=== PATIENT | female | born 1985 | race Caucasian/White ===

== ENCOUNTER 2018-08-12 13:37 | Emergency (ER) | payer MEDICAID, OTHER ==
[~2018-08-12] VITALS: Ht 162.6 cm; Wt 94.3 kg
--- OUTSIDE RECORDS SUMMARY | 2018-08-12 13:44 | XMS REPORT ---
Author Yumi Ardon Organization [employer] Address Unknown Phone Unavailable Care Team Providers Care Corrections Officer Name Role Phone Yumi Davis CP Unavailable Allergies No Known Allergies Problems Problem Type Condition Code Onset Dates Condition Status Problem Amenorrhea N91.2 Active Medications No Known Medications Results No Known Results Summary Purpose eClinicalWorks Submission
--- OUTSIDE RECORDS SUMMARY | 2018-08-12 13:44 | XMS REPORT ---
Author Author ISELA ANAND Organization Unknown Address [address] [place] [address] Care Team Providers Care Collection Analyst Name Role Phone JAMES BAR Unavailable ISELA ANAND Unavailable Problems Problem SNOMED Onset Date Resolved Date Status Mental health problem 255583902 Active Review of medication 539591249 Active Allergies, Adverse Reactions NA Care Plan Goal Instructions Client will be functioning more independently with supports and have a life worth living. Engage with treatment team to build rapport. Learn and practice coping skills to reduce symptoms and improve functioning. The following Services will be utilized 1 - 3 times until goal is reached: Improve and maintain functioning through medical psychiatric services. Initial Psychiatric Evaluation, Ongoing medication monitoring and management , Case Conference with multidisciplinary members of the [facility] team as indicated, and/or Collaboration and coordination with outside medical providers as indicated by providing the following services: 01630 interactive complexity 52051 psychiatric diagnostic eval w/ meds 80971 30 min psychotherapy add-on 22139 45 [place] [address] 60 min psychotherapy add-on 80112 med injection 09939 New Patient E&M (level 1) 56506 New Patient E&M (level 2) 89525 New Patient E&M (level 3) 33057 New patient E&M (level 4) 33163 New Patient E&M (level 5) 94670 Established Patient E&M (level 1) 33856 Established Patient E&M (level 2) 10416 Established Patient E&M (level 3) 58437 Established Patient E&M (level 4) 13231 Established Patient E&M (level 5 ) 9935x prolonged service code 89697 case conference w/o clt & fam w/ 22960 case conference w/o clt w/ H0038 Peer Support Teresa Date Time Service Provider Location 10:00:00 am PSYCHOTHERAPY, 38-52 MINUTES ISELA ANAND [address] Medications NA Lab Results NA Encounters Date Time Service Code Provider 12:25:00 pm ISELA ANAND 03:34:00 pm ISELA ANAND Family History Functional Status NA Immunizations NA Vital Signs NA Social History NA Hospital Discharge Instructions NA Instructions * Not Applicable Procedures Date Procedure Code Type Code Provider Volatile drug screen (procedure) SNOMED CT 185921672 Purpose Electronic Copy
--- OUTSIDE RECORDS SUMMARY | 2018-08-12 13:44 | XMS REPORT ---
Author Author ISELA ANAND Organization Unknown Address [address] [place] [address] Care Team Providers Care Farmer General Name Role Phone JAMES BAR Unavailable ISELA ANAND Unavailable Problems Problem SNOMED Onset Date Resolved Date Status Mental health problem 677059569 Active Review of medication 154109660 Active Allergies, Adverse Reactions NA Care Plan [...] as indicated by providing the following services: 06538 interactive complexity 23447 psychiatric diagnostic eval w/ meds 06843 30 min psychotherapy add-on 59255 45 [place] [address] 60 min psychotherapy add-on 64217 med injection 39356 New Patient E&M (level 1) 98093 New Patient E&M (level 2) 87226 New Patient E&M (level 3) 14750 New patient E&M (level 4) 87325 New Patient E&M (level 5) 85035 Established Patient E&M (level 1) 93257 Established Patient E&M (level 2) 63999 Established Patient E&M (level 3) 19781 Established Patient E&M (level 4) 92326 Established Patient E&M (level 5 ) 9935x prolonged service code 01543 case conference w/o clt & fam w/ 65615 case conference w/o clt w/ H0038 Peer Support Teresa Client will be functioning more independently with supports and have a life worth living. Engage with treatment team to build rapport. Learn and practice coping skills to reduce symptoms and improve functioning. The following Services will be utilized 1 - 3 times until goal is reached: Client will be functioning more independently with supports and have a life worth living. Engage with treatment team to build rapport. Learn and practice coping skills to reduce symptoms and improve functioning. The following Services will be utilized 1 - 3 times until goal is reached: Medications Medication Code Dose,Form,Route,Freq Start Date End Date CeleXA - 20 MG ORAL Tablet 975307 Take one (1) Tablet Daily traZODone hydrochloride - 50 MG ORAL Tablet 246009 Take one (1) Tablet At Bedtime Lab Results NA Encounters Date Time Service Code Provider 12:25:00 pm ISELA ANAND 03:34:00 pm ISELA ANAND Family History Functional Status NA Immunizations NA Vital Signs Date Time BP Pulse Temp Height Weight BMI 01:19:00 pm over 90 bpm 65 in 240 lbs 39.9 kg/m^2 Social History Date Smoking Status SNOMED Code Current Every Day Smoker [id number] Hospital Discharge Instructions NA Instructions * Not Applicable Procedures Date Procedure Code Type Code Provider Volatile drug screen (procedure) SNOMED CT 062543808 Purpose Electronic Copy
--- NOTE | 2018-08-12 13:45 | NUR ---
called pt to room. pt not in waiting room.
--- OUTSIDE RECORDS SUMMARY | 2018-08-12 13:45 | XMS REPORT ---
Author Yumi Ardon Organization [employer] Address Unknown Phone Unavailable Care Team Providers Care Agile Java Developer Name Role Phone Yumi Davis CP Unavailable Allergies, Adverse Reactions, Alerts Substance Reaction Event Type Sulfa Info Not Available Drug Allergy Vancomycin HCl Info Not Available Drug Allergy Levaquin Info Not Available Drug Allergy Cipro Info Not Available Drug Allergy Plastic tape Info Not Available Non Drug Allergy Problems Problem Type Condition Code Onset Dates Condition Status Assessment Thyroid nodule E04.1 Active Assessment Unintentional weight loss R63.4 Active Assessment Alopecia L65.9 Active Assessment Hx gestational diabetes Z86.32 Active Assessment Amenorrhea N91.2 Active Assessment Thyromegaly E04.9 Active Assessment Obesity (BMI 35.0-39.9 without comorbidity) E66.9 Active Assessment Miscarriage within last 12 months Z87.59 Active Medications No Known Medications Procedures Procedure Coding System Code Date ASSAY OF THYROID (T3 OR T4) THYROID HORMONE (T3 OR T4) UPTAKE OR THYROID HORMONE BINDING RATIO (THBR) CPT-4 27309 Feb 05, 2016 GLYCOSYLATED HEMOGLOBIN TEST HEMOGLOBIN; GLYCOSYLATED (A1C) CPT-4 55974 Feb 05, 2016 Charge billed by Lab CPT-4 NOBIL Feb 05, 2016 OFFICEOUTPATIENT VISIT NEW OFFICE OR OTHER OUTPATIENT VISIT FOR THE EVALUATION AND MANAGEMENT OF A NEW PATIENT, WHICH REQUIRES THESE 3 ROTHMAN COMPONENTS. A DETAILED HISTORY A DETAILED EXAMINATION,MEDICAL DECISION MAKING OF LOW COMPLEXITY. CPT-4 42101 Feb 05, 2016 THYROID IMAGING WITH UPTAKE CPT-4 21319 Feb 05, 2016 Vital Signs Date/Time: Feb 05, 2016 Blood Pressure Diastolic 80 mm Hg Blood Pressure Systolic 112 mm Hg Cardiac Monitoring Heart Rate 84 /min Respiratory Rate 16 /min BMI 36.80 Index Weight 235 lbs Height 67 in Oximetry 99 % Results No Known Results Summary Purpose eClinicalWorks Submission
--- OUTSIDE RECORDS SUMMARY | 2018-08-12 13:45 | XMS REPORT ---
Author Yumi Ardon Organization [employer] Address Unknown Phone Unavailable Care Team Providers Care Domestic Travel Consultant Name Role Phone Yumi Davis CP Unavailable Allergies No Known Allergies Problems Problem Type Condition Code Onset Dates Condition Status Problem Amenorrhea N91.2 Active Medications No Known Medications Results No Known Results Summary Purpose eClinicalWorks Submission
--- OUTSIDE RECORDS SUMMARY | 2018-08-12 13:45 | XMS REPORT ---
Author Yumi Ardon Organization [employer] Address Unknown Phone Unavailable Care Team Providers Care Poultry Pathologist Name Role Phone Yumi Davis CP Unavailable Allergies No Known Allergies Problems No Known Problems Medications No Known Medications Results No Known Results Summary Purpose [employer]ClinicalWorks Submission
--- OUTSIDE RECORDS SUMMARY | 2018-08-12 13:45 | XMS REPORT ---
Author Yumi Ardon Organization [employer] Address Unknown Phone Unavailable Care Team Providers Care Water Pump Servicer Name Role Phone Yumi Davis CP Unavailable Allergies No Known Allergies Problems Problem Type Condition Code Onset Dates Condition Status Assessment Prediabetes R73.09 Active Medications Medication Code System Code Instructions Start Date End Date Status Dosage Metformin HCl [facility] [address]-52 500 MG Orally once a day x 1 week, then bid Feb 08, 2016 1 tablet with meals Results No Known Results Summary Purpose eClinicalWorks Submission
--- OUTSIDE RECORDS SUMMARY | 2018-08-12 13:45 | XMS REPORT ---
Author Yumi Ardon Organization [employer] Address Unknown Phone Unavailable Care Team Providers Care It Help Desk Associate Name Role Phone Yumi Davis CP Unavailable Allergies No Known Allergies Problems No Known Problems Medications No Known Medications Results No Known Results Summary Purpose [employer]ClinicalWorks Submission
--- OUTSIDE RECORDS SUMMARY | 2018-08-12 13:45 | XMS REPORT ---
Author Yumi Ardon Organization [employer] Address Unknown Phone Unavailable Care Team Providers Care Plow Holder Name Role Phone Yumi Davis CP Unavailable Allergies No Known Allergies Problems Problem Type Condition Code Onset Dates Condition Status Problem Amenorrhea N91.2 Active Medications Medication Code System Code Instructions Start Date End Date Status Dosage Metronidazole [facility] [address]-59 500 MG Orally one time with food Feb 24, 2016 Feb 25, 2016 4 tablet Results No Known Results Summary Purpose eClinicalWorks Submission
[2018-08-12] MEDS ORDERED: CLINDAMYCIN 600 MG/50 ML IVPB 50 ML IV ONE (14:15)
[2018-08-12] MEDS ORDERED: NS IV ONE (14:15)
--- NOTE | 2018-08-12 14:18 | ED General ---
General Chief Complaint: Skin/Wound Problems Stated Complaint: WOUND CHECK History of Present Illness Date Seen by Provider: Aug 12, 2018 Time Seen by Provider: 14:02 This is a 33-year-old female with a chronic wound on the left groin, here for a reportedly recurrent skin infection on the left hip and buttock. She states that she just completed an antibiotic for which a PICC line was placed, she is not sure of the name of the antibiotic. She had a 103 fever at home but this improved with Tylenol that she took 3 hours ago. She feels like the redness developed just in the last 24 hours. She has constant, mild to moderate, burning, nonradiating pain, worse with direct palpation. She has had some nausea and she vomited some water that she drank prior to arrival. No change in bowel movements or urination, no abdominal pain, no other symptoms. Allergies and Home Medications Allergies Coded Allergies: ciprofloxacin (Verified Allergy, Unknown, 08/12/18) levofloxacin (Verified Allergy, Unknown, 08/12/18) vancomycin (Verified Allergy, Unknown, 08/12/18) Uncoded Allergies: SULFA (Allergy, Unknown, 08/12/18) Patient Home Medication List Home Medication List Reviewed: Yes Review of Systems Review of Systems Constitutional: fever EENTM: no symptoms reported Respiratory: no symptoms reported Cardiovascular: no symptoms reported Gastrointestinal: nausea, vomiting Genitourinary: no symptoms reported Musculoskeletal: no symptoms reported Skin: see HPI Psychiatric/Neurological: No Symptoms Reported Hematologic/Lymphatic: No Symptoms Reported Immunological/Allergic: no symptoms reported Past Nsidlrn-Jpzjgz-Xmkydx Hx Past Med/Social Hx: Reviewed Nursing Past Med/Soc Hx Patient Social History Alcohol Use: Denies Use Recreational Drug Use: No Smoking Status: Current Everyday Smoker Type Used: Cigarettes 2nd Hand Smoke Exposure: Yes Recent Hopitalizations: No Physical Abuse: No Sexual Abuse: No Past Medical History Surgeries: Yes (hip, bi-lat knee) Appendectomy, Section, Gallbladder, Orthopedic Respiratory: No Cardiac: No Neurological: No Genitourinary: No Gastrointestinal: No Musculoskeletal: No Endocrine: No HEENT: No Cancer: No Psychosocial: No Blood Disorders: No Physical Exam Vital Signs Vital Signs - First Documented 08/12/18 13:47 Temp 96.3 Pulse 115 Resp 18 B/P (MAP) 118/70 (86) Pulse Ox 96 O2 Delivery Room Air Capillary Refill : Height, Weight, BMI Height: '" Weight: lbs. oz. kg; BMI Method: General Appearance: No Apparent Distress HEENT: PERRL/EOMI, Moist Mucous Membranes Neck: Supple Respiratory: Lungs Clear Cardiovascular: Regular Rate, Rhythm, Normal Peripheral Pulses Gastrointestinal: Non Tender, Soft Neurologic/Psychiatric: Alert, Oriented x3; No Abnormal Gait Skin: Warm/Dry, Other (there is a small, approximately 5 cm x 3 cm, wound VAC over the left groin, there is erythema and mild tenderness spreading from there around to the top of the ipsilateral buttock and upper thigh, no significant induration, no crepitation, no fluctuance) Focused Exam Lactate Level 08/12/18 13:55: Lactic Acid Level 2.25*H Lactic Acid Level Laboratory Tests Test 08/12/18 13:55 Lactic Acid Level 2.25 MMOL/L (0.50-2.00) *H Progress/Results/Core Measures Suspected Sepsis SIRS Temperature: Pulse: Respiratory Rate: Laboratory Tests 08/12/18 13:55: White Blood Count 19.6H Blood Pressure / Mean: 08/12/18 13:55: Lactic Acid Level 2.25*H Laboratory Tests 08/12/18 13:55: Creatinine 0.83, INR Comment 1.1, Platelet Count 420H, Total Bilirubin 0.6 Results/Orders Lab Results Laboratory Tests Test 08/12/18 13:55 08/12/18 15:10 Range/Units White Blood Count 19.6 H 4.3-11.0 10^3/uL Red Blood Count 4.52 4.35-5.85 10^6/uL Hemoglobin 12.0 11.5-16.0 G/DL Hematocrit 38 35-52 % Mean Corpuscular Volume 84 80-99 FL Mean Corpuscular Hemoglobin 27 25-34 PG Mean Corpuscular Hemoglobin Concent 32 32-36 G/DL Red Cell Distribution Width 14.6 H 10.0-14.5 % Platelet Count 420 H 130-400 10^3/uL Mean Platelet Volume 9.3 7.4-10.4 FL Neutrophils (%) (Auto) 88 H 42-75 % Lymphocytes (%) (Auto) 7 L 12-44 % Monocytes (%) (Auto) 4 0-12 % Eosinophils (%) (Auto) 0 0-10 % Basophils (%) (Auto) 0 0-10 % Neutrophils # (Auto) 17.3 H 1.8-7.8 X 10^3 Lymphocytes # (Auto) 1.3 1.0-4.0 X 10^3 Monocytes # (Auto) 0.8 0.0-1.0 X 10^3 Eosinophils # (Auto) 0.0 0.0-0.3 10^3/uL Basophils # (Auto) 0.0 0.0-0.1 10^3/uL Neutrophils % (Manual) 74 % Lymphocytes % (Manual) 8 % Monocytes % (Manual) 5 % Eosinophils % (Manual) 0 % Basophils % (Manual) 1 % Band Neutrophils 12 % Prothrombin Time 14.5 12.2-14.7 SEC INR Comment 1.1 0.8-1.4 Activated Partial Thromboplast Time 33 24-35 SEC Sodium Level 137 135-145 MMOL/L Potassium Level 4.1 3.6-5.0 MMOL/L Chloride Level 97 L 98-107 MMOL/L Carbon Dioxide Level 20 L 21-32 MMOL/L Anion Gap 20 H 5-14 MMOL/L Blood Urea Nitrogen 13 7-18 MG/DL Creatinine 0.83 0.60-1.30 MG/DL Estimat Glomerular Filtration Rate > 60 BUN/Creatinine Ratio 16 Glucose Level 155 H 70-105 MG/DL Lactic Acid Level 2.25 *H 0.50-2.00 MMOL/L Calcium Level 9.5 8.5-10.1 MG/DL Corrected Calcium 8.5-10.1 MG/DL Total Bilirubin 0.6 0.1-1.0 MG/DL Aspartate Amino Transf (AST/SGOT) 11 5-34 U/L Alanine Aminotransferase (ALT/SGPT) 7 0-55 U/L Alkaline Phosphatase 93 40-136 U/L Total Protein 8.3 H 6.4-8.2 GM/DL Albumin 4.6 H 3.2-4.5 GM/DL Urine Color DARK YELLOW Urine Clarity SL CLOUDY Urine pH 5.5 5-9 Urine Specific [place] >=1.030 1.016-1.022 Urine Protein TRACE H NEGATIVE Urine Glucose (UA) NEGATIVE NEGATIVE Urine Ketones NEGATIVE NEGATIVE Urine Nitrite NEGATIVE NEGATIVE Urine Bilirubin NEGATIVE NEGATIVE Urine Urobilinogen 0.2 NORMAL MG/DL Urine Leukocyte Esterase TRACE H NEGATIVE Urine RBC (Auto) NEGATIVE NEGATIVE Urine RBC NONE /HPF Urine WBC 2-5 /HPF Urine Squamous Epithelial Cells 10-25 H /HPF Urine Crystals NONE /LPF Urine Bacteria FEW H /HPF Urine Casts NONE /LPF Urine Mucus MODERATE H /LPF Urine Culture Indicated CULTURE PENDING My Orders Orders - ANETTE ANGELO DO Cbc With Automated Diff (08/12/18 14:01) Comprehensive Metabolic Panel (08/12/18 14:01) Blood Culture (08/12/18 14:01) Urinalysis (08/12/18 14:01) Urine Culture (08/12/18 14:01) Protime With Inr (08/12/18 14:01) Partial Thromboplastin Time (08/12/18 14:01) Chest 1 View Ap/Pa Only (08/12/18 14:01) Saline Lock/Iv-Start (08/12/18 14:01) Saline Lock/Iv-Start (08/12/18 14:01) Vital Signs Adult Sepsis Patie Q15M (08/12/18 14:01) O2 (08/12/18 14:01) Remove Rings In Anticipation O (08/12/18 14:01) Lactic Acid Analyzer (08/12/18 14:01) Ns Iv 1000 Ml (Sodium Chloride 0.9%) (08/12/18 14:15) Clindamycin 600 Mg/50 Ml Ivpb (Cleocin P (08/12/18 14:15) Fentanyl Injection (Sublimaze Injection (08/12/18 14:22) Manual Differential (08/12/18 13:55) Ondansetron Injection (Zofran Injectio (08/12/18 14:44) Medications Given in ED Current Medications Medications Dose Ordered Sig/Amarilys Route Start Time Stop Time Status Last Admin Dose Admin Clindamycin Phosphate/Dextrose 50 ml @ 100 mls/hr ONCE ONCE IV 08/12/18 14:15 08/12/18 14:44 DC 08/12/18 14:41 100 MLS/HR Sodium Chloride 2,700 ml @ 2,700 mls/hr ONCE ONCE IV 08/12/18 14:15 08/12/18 15:14 DC 08/12/18 14:41 2,700 MLS/HR Vital Signs/I&O 08/12/18 13:47 Temp 96.3 Pulse 115 Resp 18 B/P (MAP) 118/70 (86) Pulse Ox 96 O2 Delivery Room Air Capillary Refill : Progress Note : Progress Note We will place patient on empiric clindamycin. She likely will benefit from admission at the facility where she had been treated recently. We will check basic labs including a lactic acid level as a screen for severe sepsis. We will provide fluids and analgesics. We will continue to monitor. Departure Impression Primary Impression: Cellulitis Disposition: XFER SHT-TRM HOSP Condition: Stable Transfer Time Spoke to Accepting Phy: 15:18 (Time spoke to transfer center.) Transfer Facility: . Dr. Melchor Duffy. Method of Transfer: EMS Departure-Patient Inst. Referrals: BENJAMÍN GIVENS MD (PCP/Family) Primary Care Physician ANETTE ANGELO DO Aug 12, 2018 14:17
[2018-08-12 14:21] LABS: HEMATOCRIT 38 % (35-52); MEAN CORPUSCULAR HEMOGLOBIN 27 PG (25-34); WHITE BLOOD COUNT 19.6 10^3/uL (4.3-11.0)
[2018-08-12 14:22] LABS: BASOPHILS % (AUTO) 0 % (0-10); EOSINOPHILS % (AUTO) 0 % (0-10); LYMPHOCYTES % (AUTO) 7 % (12-44); MEAN CORPUSCULAR HGB CONC 32 G/DL (32-36); MEAN CORPUSCULAR VOLUME 84 FL (80-99); MEAN PLATELET VOLUME 9.3 FL (7.4-10.4); MONOCYTES % (AUTO) 4 % (0-12); NEUTROPHILS % (AUTO) 88 % (42-75); PLATELET COUNT 420 10^3/uL (130-400); RED CELL DISTRIBUTION WIDTH 14.6 % (10.0-14.5)
[2018-08-12] MEDS ORDERED: fentaNYL INJECTION 100 MCG/2 ML AMP IVP STA (14:22)
[2018-08-12 14:23] LABS: LYMPHOCYTES # (AUTO) 1.3 X 10^3 (1.0-4.0); MONOCYTES # (AUTO) 0.8 X 10^3 (0.0-1.0); NEUTROPHILS # (AUTO) 17.3 X 10^3 (1.8-7.8)
[2018-08-12 14:36] LABS: INR 1.1 (0.8-1.4); PROTHROMBIN TIME PATIENT 14.5 SEC (12.2-14.7)
[2018-08-12 14:43] LABS: BAND NEUTROPHILS 12 %; BASOPHILS % (MANUAL) 1 %; BUN/CREATININE RATIO 16; CARBON DIOXIDE 20 MMOL/L (21-32); CHLORIDE 97 MMOL/L (98-107); CREATININE SERUM 0.83 MG/DL (0.60-1.30); EOSINOPHILS % (MANUAL) 0 %; GFR ESTIMATED > 60; LYMPHOCYTES % (MANUAL) 8 %; MONOCYTES % (MANUAL) 5 %; NEUTROPHILS % (MANUAL) 74 %; POTASSIUM 4.1 MMOL/L (3.6-5.0); SODIUM 137 MMOL/L (135-145)
[2018-08-12 14:44] LABS: ALANINE AMINOTRANSFERASE 7 U/L (0-55); ALBUMIN 4.6 GM/DL (3.2-4.5); ALKALINE PHOSPHATASE 93 U/L (40-136); BILIRUBIN,TOTAL 0.6 MG/DL (0.1-1.0); CALCIUM 9.5 MG/DL (8.5-10.1); GLUCOSE 155 MG/DL (70-105); TOTAL PROTEIN 8.3 GM/DL (6.4-8.2)
[2018-08-12] MEDS ORDERED: ONDANSETRON 4 MG/2 ML (SDV) Z0FRAN IVP STA (14:44)
--- NOTE | 2018-08-12 14:53 | Diagnostic Imaging Report ---
INDICATION: Wound infection. TIME OF EXAM: 02:28 p.m. COMPARISON: No prior studies are available for comparison. FINDINGS: The heart size is normal. The pulmonary vascularity is unremarkable. The lungs are clear. No infiltrate, effusion or pneumothorax is detected. IMPRESSION: No acute cardiopulmonary process is detected. Dictated by: Dictated on workstation # [id number]
[2018-08-12 15:28] LABS: CLARITY,URINE SL CLOUDY; COLOR,URINE DARK YELLOW; PH,URINE 5.5 (5-9); PROTEIN,URINE TRACE (NEGATIVE)
[2018-08-12 15:29] LABS: BACTERIA,URINE FEW /HPF; BILIRUBIN,URINE NEGATIVE (NEGATIVE); GLUCOSE, URINE (UA) NEGATIVE (NEGATIVE); KETONES,URINE NEGATIVE (NEGATIVE); LEUKOCYTE ESTERASE ,URINE TRACE (NEGATIVE); NITRITE,URINE NEGATIVE (NEGATIVE); UROBILINOGEN,URINE 0.2 MG/DL (NORMAL)
--- NOTE | 2018-08-12 18:14 | NUR ---
Report called to CARLOS Asher at this time. Pt to go to [id number].
[2018-08-12] MEDS ORDERED: NS IV 1000 ML 1,000 ML IV SCH (19:15)
[2018-08-12] MEDS ORDERED: fentaNYL INJECTION 100 MCG/2 ML AMP IVP ONE (19:15)
[2018-08-12] MEDS ORDERED: KETOROLAC 30 MG/ML VIAL IVP ONE (19:15)
--- NOTE | 2018-08-12 19:21 | NUR ---
Report given to MARGI Little
--- NOTE | 2018-08-12 21:03 | NUR ---
Called [facility] to see if they could take pt to and they stated they were not available. [facility] was called to see if they could take pt to and stated they were not available.
--- NOTE | 2018-08-12 21:09 | NUR ---
[facility] accepted transfer and stated crew would be here in 3.5-4.0 hours
--- NOTE | 2018-08-12 21:16 | NUR ---
[facility] called back and stated it was going to be 8-9 hours before crew could get here and [facility] was informed that we could not wait that long.
[2018-08-12] MEDS ORDERED: fentaNYL INJECTION 100 MCG/2 ML AMP IVP PRN (21:45)
--- NOTE | 2018-08-12 22:28 | NUR ---
Pt stated part of wound vac was coming off, so 4x4 gauze was applied with surgical tape. Pt removed wound vac machine, becuase it was not running.
--- NOTE | 2018-08-13 00:08 | NUR ---
Report was given to [facility]. Care was transferred.
[2018-08-13 00:12] VITALS: BP 103/86
== END 2018-08-13 00:08 | disposition short-term general hospital (02) ==
LOC: ER FS 13:41
DX: L03.317 Cellulitis of buttock (principal); L03.116 Cellulitis of left lower limb; F17.210 Nicotine dependence, cigarettes, uncomplicated; Z90.49 Acquired absence of other specified parts of digestive tract; Z88.1 Allergy status to other antibiotic agents; Z88.2 Allergy status to sulfonamides
CPT/HCPCS: 36415; 71045; 80053; 81000; 83605; 85007; 85027; 85610; 85730; 87040; 87088

== ENCOUNTER 2018-08-21 14:32 | Emergency (ER) | payer MEDICAID ==
[~2018-08-21] VITALS: Ht 162.6 cm; Wt 94.3 kg
--- NOTE | 2018-08-21 16:08 | ED Fever ---
History of Present Illness General Stated Complaint: HIP PAIN Source: patient Exam Limitations: no limitations History of Present Illness Date Seen by Provider: Aug 21, 2018 Time Seen by Provider: 16:03 Initial Comments This 31-year-old white female presents with a complaint of increasing left hip pain. Patient had left hip surgery in May which subsequently became infected. The patient's surgical site was cleaned out in June. Unfortunately the patient redeveloped an infection. Surgery was redone last week at by her orthopedic surgeon, Dr. Holguin The patient is on IV antibiotics. She thinks she is taking Ancef. She is allergic to vancomycin. Over the last several days the patient's left hip has become increasingly red, swollen, and painful. There is a wound drain in place in the left hip which is draining purulent material. Allergies and Home Medications Allergies Coded Allergies: Sulfa (Sulfonamide Antibiotics) (Verified Allergy, Unknown, 08/21/18) ciprofloxacin (Verified Allergy, Unknown, 08/12/18) levofloxacin (Verified Allergy, Unknown, 08/12/18) vancomycin (Verified Allergy, Unknown, 08/12/18) Uncoded Allergies: SULFA (Allergy, Unknown, 08/12/18) Patient Home Medication List Home Medication List Reviewed: Yes Review of Systems Review of Systems Constitutional: see HPI, chills, fever EENTM: No hearing loss, No blurred vision Respiratory: No cough Cardiovascular: No chest pain Gastrointestinal: No abdominal pain, No nausea, No vomiting Genitourinary: no symptoms reported Musculoskeletal: see HPI; No back pain; joint pain (left hip) Skin: change in color (the skin over the lateral aspect of the left hip is become increasingly erythematous) Psychiatric/Neurological: No Symptoms Reported Hematologic/Lymphatic: No Symptoms Reported Past Sfuyzvr-Bgksbq-Qjmlje Hx Past Med/Social Hx: Reviewed Nursing Past Med/Soc Hx Patient Social History Type Used: Cigarettes 2nd Hand Smoke Exposure: Yes Recent Hopitalizations: No Past Medical History Surgeries: Yes (hip, bi-lat knee) Appendectomy, Section, Gallbladder, Orthopedic Respiratory: No Cardiac: No Neurological: No Genitourinary: No Gastrointestinal: No Musculoskeletal: No Endocrine: No HEENT: No Cancer: No Psychosocial: No Blood Disorders: No Physical Exam Vital Signs - First Documented 08/21/18 15:47 Temp 97.5 Pulse 95 Resp 20 B/P (MAP) 112/64 (80) Pulse Ox 99 Capillary Refill : Height: 5'4.00" Weight: 208lbs. oz. 94.241379dl; BMI Method:Stated General Appearance: WD/WN, mild distress Eyes: Bilateral Eye Normal Inspection HEENT: normal ENT inspection Neck: normal inspection Respiratory: lungs clear Cardiovascular: regular rate, rhythm Gastrointestinal: non tender, soft Extremities: other (there is erythema and tenderness over the left hip. There is a drain from the left hip area.) Neurologic/Psychiatric: no motor/sensory deficits, alert, normal mood/affect Skin: normal color, warm/dry, other (erythema left hip) Focused Exam Lactate Level 08/21/18 16:35: Lactic Acid Level 0.54 Lactic Acid Level Laboratory Tests Test 08/21/18 16:35 Lactic Acid Level 0.54 MMOL/L (0.50-2.00) Progress/Results/Core Measures Suspected Sepsis SIRS Temperature: Pulse: Respiratory Rate: Laboratory Tests 08/21/18 16:10: White Blood Count 8.9 Blood Pressure / Mean: 08/21/18 16:35: Lactic Acid Level 0.54 Laboratory Tests 08/21/18 16:10: Creatinine 0.57L, Platelet Count 403H, Total Bilirubin 0.2 Results/Orders Lab Results Laboratory Tests Test 08/21/18 16:03 08/21/18 16:10 08/21/18 16:35 Range/Units C-Reactive Protein High Sensitivity 9.66 H 0.00-0.50 MG/DL White Blood Count 8.9 4.3-11.0 10^3/uL Red Blood Count 3.68 L 4.35-5.85 10^6/uL Hemoglobin 9.7 L 11.5-16.0 G/DL Hematocrit 31 L 35-52 % Mean Corpuscular Volume 85 80-99 FL Mean Corpuscular Hemoglobin 26 25-34 PG Mean Corpuscular Hemoglobin Concent 31 L 32-36 G/DL Red Cell Distribution Width 14.8 H 10.0-14.5 % Platelet Count 403 H 130-400 10^3/uL Mean Platelet Volume 8.9 7.4-10.4 FL Neutrophils (%) (Auto) 57 42-75 % Lymphocytes (%) (Auto) 31 12-44 % Monocytes (%) (Auto) 8 0-12 % Eosinophils (%) (Auto) 3 0-10 % Basophils (%) (Auto) 1 0-10 % Neutrophils # (Auto) 5.1 1.8-7.8 X 10^3 Lymphocytes # (Auto) 2.7 1.0-4.0 X 10^3 Monocytes # (Auto) 0.7 0.0-1.0 X 10^3 Eosinophils # (Auto) 0.2 0.0-0.3 10^3/uL Basophils # (Auto) 0.0 0.0-0.1 10^3/uL Erythrocyte Sedimentation Rate 75 H 0-20 MM/HR Sodium Level 139 135-145 MMOL/L Potassium Level 4.4 3.6-5.0 MMOL/L Chloride Level 103 98-107 MMOL/L Carbon Dioxide Level 28 21-32 MMOL/L Anion Gap 8 5-14 MMOL/L Blood Urea Nitrogen 11 7-18 MG/DL Creatinine 0.57 L 0.60-1.30 MG/DL Estimat Glomerular Filtration Rate > 60 BUN/Creatinine Ratio 19 Glucose Level 124 H 70-105 MG/DL Calcium Level 9.2 8.5-10.1 MG/DL Corrected Calcium 9.2 8.5-10.1 MG/DL Total Bilirubin 0.2 0.1-1.0 MG/DL Aspartate Amino Transf (AST/SGOT) 9 5-34 U/L Alanine Aminotransferase (ALT/SGPT) 9 0-55 U/L Alkaline Phosphatase 83 40-136 U/L Total Protein 7.2 6.4-8.2 GM/DL Albumin 4.0 3.2-4.5 GM/DL Lactic Acid Level 0.54 0.50-2.00 MMOL/L My Orders Orders - CATALINA PAL MD Cbc With Automated Diff (08/21/18 15:59) Comprehensive Metabolic Panel (08/21/18 15:59) Erythrocyte Sedimentation Rate (08/21/18 15:59) Blood Culture (08/21/18 15:59) Lactic Acid Analyzer (08/21/18 15:59) Wound Culture (08/21/18 15:59) Hip (Single View) Left (08/21/18 15:59) Fentanyl Injection (Sublimaze Injection (08/21/18 16:15) Ondansetron Injection (Zofran Injectio (08/21/18 16:15) Blood Culture (08/21/18 16:04) Hs C Reactive Protein (08/21/18 16:03) Ct Extremity Lower Left W (08/21/18 16:50) Iohexol Injection (Omnipaque 350 Mg/Ml 1 (08/21/18 17:15) Received Contrast (Hold Metformin- Contr (08/21/18 17:15) Sodium Chloride Flush (Catheter Flush Sy (08/21/18 17:15) Ns (Ivpb) (Sodium Chloride 0.9% Ivpb Bag (08/21/18 17:15) Fentanyl Injection (Sublimaze Injection (08/21/18 18:15) Medications Given in ED Current Medications Medications Dose Ordered Sig/Amarilys Route Start Time Stop Time Status Last Admin Dose Admin Fentanyl Citrate 50 mcg ONCE ONCE IVP 08/21/18 16:15 08/21/18 16:16 DC 08/21/18 16:13 50 MCG Iohexol 100 ml ONCE ONCE IV 08/21/18 17:15 08/21/18 17:16 DC 08/21/18 17:23 100 ML Ondansetron HCl 4 mg ONCE ONCE IVP 08/21/18 16:15 08/21/18 16:16 DC 08/21/18 16:13 4 MG Sodium Chloride 10 ml NEEDED PRN IV 08/21/18 17:15 08/21/18 17:23 10 ML Sodium Chloride 50 ml ONCE ONCE IV 08/21/18 17:15 08/21/18 17:16 DC 08/21/18 17:23 50 ML Vital Signs/I&O 08/21/18 15:47 Temp 97.5 Pulse 95 Resp 20 B/P (MAP) 112/64 (80) Pulse Ox 99 Capillary Refill : Progress Note : Time: 18:20 Progress Note Plain films and CT of the left hip with contrast demonstrated marked inflammatory changes but no evidence of a significant fluid filled collection. Patient's laboratory evaluation demonstrated a normal white count but a sedimentation rate of 75. Maintain the patient's laboratory evaluation was unremarkable. Blood cultures were obtained. Telephone consultation was undertaken with them [facility]. Dr. Hurt was kind enough to admit the patient. The patient will be seen in the emergency department upon arrival at . Departure Impression Primary Impression: Infection of left prosthetic hip joint Qualified Codes: T84.52XD - Infection and inflammatory reaction due to internal left hip prosthesis, subsequent encounter Disposition: 02 XFER SHT-TRM HOSP Condition: Unchanged Transfer Time Spoke to Accepting Phy: 18:[address] Hurt accepted pt in tx to [facility]. Transfer Time: 18:23 Transfer Facility: [facility] Method of Transfer: EMS Departure-Patient Inst. Referrals: BENJAMÍN GIVENS MD (PCP/Family) Primary Care Physician CATALINA PAL MD Aug 21, 2018 16:08
[2018-08-21] MEDS ORDERED: ONDANSETRON 4 MG/2 ML (SDV) Z0FRAN IVP ONE (16:15)
[2018-08-21] MEDS ORDERED: fentaNYL INJECTION 100 MCG/2 ML AMP IVP ONE ×2 (16:15→18:15)
[2018-08-21 16:38] LABS: HEMATOCRIT 31 % (35-52); HEMOGLOBIN 9.7 G/DL (11.5-16.0); MEAN CORPUSCULAR HEMOGLOBIN 26 PG (25-34); WHITE BLOOD COUNT 8.9 10^3/uL (4.3-11.0)
[2018-08-21 16:39] LABS: BASOPHILS % (AUTO) 1 % (0-10); EOSINOPHILS # (AUTO) 0.2 10^3/uL (0.0-0.3); EOSINOPHILS % (AUTO) 3 % (0-10); LYMPHOCYTES # (AUTO) 2.7 X 10^3 (1.0-4.0); LYMPHOCYTES % (AUTO) 31 % (12-44); MEAN CORPUSCULAR HGB CONC 31 G/DL (32-36); MEAN CORPUSCULAR VOLUME 85 FL (80-99); MEAN PLATELET VOLUME 8.9 FL (7.4-10.4); MONOCYTES # (AUTO) 0.7 X 10^3 (0.0-1.0); MONOCYTES % (AUTO) 8 % (0-12); NEUTROPHILS # (AUTO) 5.1 X 10^3 (1.8-7.8); NEUTROPHILS % (AUTO) 57 % (42-75); PLATELET COUNT 403 10^3/uL (130-400); RED CELL DISTRIBUTION WIDTH 14.8 % (10.0-14.5)
--- NOTE | 2018-08-21 16:40 | Diagnostic Imaging Report ---
INDICATION: Infection. FINDINGS: There are postsurgical changes about the left acetabulum. Alignment of the hip is grossly normal. There appears to be a wound VAC overlying the left hip. There is no subcutaneous gas. IMPRESSION: Postsurgical changes in the left acetabulum and hip. Dictated by: Dictated on workstation # [id number]
[2018-08-21 16:55] LABS: CHLORIDE 103 MMOL/L (98-107); POTASSIUM 4.4 MMOL/L (3.6-5.0); SODIUM 139 MMOL/L (135-145)
[2018-08-21 16:56] LABS: ALKALINE PHOSPHATASE 83 U/L (40-136); BILIRUBIN,TOTAL 0.2 MG/DL (0.1-1.0); BUN/CREATININE RATIO 19; CALCIUM 9.2 MG/DL (8.5-10.1); CARBON DIOXIDE 28 MMOL/L (21-32); CREATININE SERUM 0.57 MG/DL (0.60-1.30); GFR ESTIMATED > 60; GLUCOSE 124 MG/DL (70-105)
[2018-08-21 16:57] LABS: ALANINE AMINOTRANSFERASE 9 U/L (0-55); TOTAL PROTEIN 7.2 GM/DL (6.4-8.2)
[2018-08-21 16:59] LABS: ERYTHROCYTE SEDIMENTATION RATE 75 MM/HR (0-20)
[2018-08-21] MEDS ORDERED: NS 50 ML (IVPB) BAG IV ONE (17:15)
[2018-08-21] MEDS ORDERED: HOLD METFORMIN - RECEIVED CONTRAST 20 ML VIAL IV SCH (17:15)
[2018-08-21] MEDS ORDERED: CATHETER FLUSH 10 ML SYR IV PRN (17:15)
[2018-08-21] MEDS ORDERED: IOHEXOL 350 MG/ML 100 ML (OMNIPAQUE 350) VIAL IV ONE (17:15)
--- NOTE | 2018-08-21 17:59 | Diagnostic Imaging Report ---
PROCEDURE: CT left lower extremity with contrast. TECHNIQUE: Multiple axial images of the left lower extremity were obtained after intravenous administration of iodinated contrast. Auto Exposure Controls were utilized during the CT exam to meet ALARA standards for radiation dose reduction. INDICATION: Fracture of the left hip and hardware, previous left hip surgery. FINDINGS: CT scan of the left side of the pelvis and hip demonstrates two screws in the left ilium. There is a fracture of the medial wall of the acetabulum just below this. There is also a fracture of the superior pubic ramus. Joint space appears normal. Some edema is present around the joint space. Edema is present in the incision with incision running down near to the bone fragments at the edge of the lateral iliac crest. No drainable fluid collections are identified. IMPRESSION: 1. No drainable fluid collections are identified. Inflammation is seen around the fractures. Incision line goes down within a couple centimeters of the lateral iliac crest with a couple of areas of heterotopic calcification near this. 2. There are fractures of the left superior pubic ramus and acetabulum. Dictated by: Dictated on workstation # [id number]
[2018-08-21 19:35] VITALS: BP 124/88
[2018-08-21 19:53] VITALS: BP 124/88
== END 2018-08-21 19:53 | disposition short-term general hospital (02) ==
LOC: EDUNIT# 14:32 → ER FS 14:33
DX: T84.52XD Infection and inflammatory reaction due to internal left hip prosthesis, subsequent encounter (principal); Z88.1 Allergy status to other antibiotic agents; Z88.2 Allergy status to sulfonamides; Z88.8 Allergy status to other drugs, medicaments and biological substances; Z77.22 Contact with and (suspected) exposure to environmental tobacco smoke (acute) (chronic); Z90.49 Acquired absence of other specified parts of digestive tract; Z98.890 Other specified postprocedural states
CPT/HCPCS: 36415; 73501; 73701; 80053; 83605; 85025; 85652; 86141; 87040; 96374; 96375; 96376

== ENCOUNTER → 2018-08-30 | Outpatient (CLI) | payer MEDICAID ==
[2018-08-30 18:22] LABS: HEMATOCRIT 34 % (35-52); HEMOGLOBIN 10.3 G/DL (11.5-16.0); LYMPHOCYTES % (AUTO) 42 % (12-44); MEAN CORPUSCULAR HEMOGLOBIN 25 PG (25-34); MEAN CORPUSCULAR HGB CONC 30 G/DL (32-36); MEAN CORPUSCULAR VOLUME 84 FL (80-99); MEAN PLATELET VOLUME 9.3 FL (7.4-10.4); NEUTROPHILS % (AUTO) 47 % (42-75); PLATELET COUNT 467 10^3/uL (130-400); RED CELL DISTRIBUTION WIDTH 14.6 % (10.0-14.5); WHITE BLOOD COUNT 7.1 10^3/uL (4.3-11.0)
[2018-08-30 18:23] LABS: BASOPHILS # (AUTO) 0.1 10^3/uL (0.0-0.1); BASOPHILS % (AUTO) 1 % (0-10); EOSINOPHILS # (AUTO) 0.2 10^3/uL (0.0-0.3); EOSINOPHILS % (AUTO) 3 % (0-10); MONOCYTES # (AUTO) 0.5 X 10^3 (0.0-1.0); MONOCYTES % (AUTO) 7 % (0-12); NEUTROPHILS # (AUTO) 3.3 X 10^3 (1.8-7.8)
[2018-08-30 18:56] LABS: BAND NEUTROPHILS 1 %; BASOPHILS % (MANUAL) 1 %; EOSINOPHILS % (MANUAL) 2 %; ERYTHROCYTE SEDIMENTATION RATE 67 MM/HR (0-20); LYMPHOCYTES % (MANUAL) 51 %; MONOCYTES % (MANUAL) 11 %; NEUTROPHILS % (MANUAL) 34 %; RBC MORPH NORMAL
[2018-08-30 19:56] LABS: ALANINE AMINOTRANSFERASE 5 U/L (0-55); ALKALINE PHOSPHATASE 86 U/L (40-136); BILIRUBIN,TOTAL 0.3 MG/DL (0.1-1.0); BUN/CREATININE RATIO 14; CALCIUM 9.6 MG/DL (8.5-10.1); CARBON DIOXIDE 22 MMOL/L (21-32); CHLORIDE 99 MMOL/L (98-107); CREATININE SERUM 0.57 MG/DL (0.60-1.30); GFR ESTIMATED > 60; GLUCOSE 60 MG/DL (70-105); POTASSIUM 3.6 MMOL/L (3.6-5.0); SODIUM 142 MMOL/L (135-145); TOTAL PROTEIN 7.8 GM/DL (6.4-8.2)
== END ==
LOC: HH 17:46
PROVIDERS: ATTEND Orthopaedic Surgery
DX: T81.49XA Infection following a procedure, other surgical site, initial encounter (principal)
CPT/HCPCS: 80053; 85007; 85027; 85652; 86141

== ENCOUNTER 2018-09-14 13:25 | Outpatient (RCR) | payer MEDICAID ==
[2018-09-06 15:08] LABS: HEMATOCRIT 34 % (35-52); HEMOGLOBIN 10.3 G/DL (11.5-16.0); MEAN CORPUSCULAR HEMOGLOBIN 25 PG (25-34); MEAN CORPUSCULAR HGB CONC 31 G/DL (32-36); MEAN CORPUSCULAR VOLUME 81 FL (80-99); MEAN PLATELET VOLUME 9.6 FL (7.4-10.4); PLATELET COUNT 446 10^3/uL (130-400); RED CELL DISTRIBUTION WIDTH 14.8 % (10.0-14.5); WHITE BLOOD COUNT 5.7 10^3/uL (4.3-11.0)
[2018-09-06 15:09] LABS: BASOPHILS # (AUTO) 0.1 10^3/uL (0.0-0.1); BASOPHILS % (AUTO) 1 % (0-10); EOSINOPHILS # (AUTO) 0.2 10^3/uL (0.0-0.3); EOSINOPHILS % (AUTO) 3 % (0-10); LYMPHOCYTES # (AUTO) 2.4 X 10^3 (1.0-4.0); LYMPHOCYTES % (AUTO) 41 % (12-44); MONOCYTES # (AUTO) 0.4 X 10^3 (0.0-1.0); MONOCYTES % (AUTO) 8 % (0-12); NEUTROPHILS # (AUTO) 2.7 X 10^3 (1.8-7.8); NEUTROPHILS % (AUTO) 48 % (42-75)
[2018-09-06 15:22] LABS: BUN/CREATININE RATIO 14; CALCIUM 9.4 MG/DL (8.5-10.1); CARBON DIOXIDE 26 MMOL/L (21-32); CHLORIDE 101 MMOL/L (98-107); GFR ESTIMATED > 60; GLUCOSE 104 MG/DL (70-105); SODIUM 140 MMOL/L (135-145)
[2018-09-06 15:23] LABS: ALANINE AMINOTRANSFERASE 7 U/L (0-55); ALBUMIN 3.8 GM/DL (3.2-4.5); ALKALINE PHOSPHATASE 86 U/L (40-136); BILIRUBIN,TOTAL < 0.2 MG/DL (0.1-1.0); TOTAL PROTEIN 7.2 GM/DL (6.4-8.2)
[2018-09-14 13:41] LABS: HEMOGLOBIN 10.8 G/DL (11.5-16.0); MEAN PLATELET VOLUME 9.4 FL (7.4-10.4); RED CELL DISTRIBUTION WIDTH 15.9 % (10.0-14.5); WHITE BLOOD COUNT 7.1 10^3/uL (4.3-11.0)
[2018-09-14 14:32] LABS: ALANINE AMINOTRANSFERASE 7 U/L (0-55); ALKALINE PHOSPHATASE 107 U/L (40-136); BILIRUBIN,TOTAL 0.3 MG/DL (0.1-1.0); BUN/CREATININE RATIO 21; CALCIUM 9.2 MG/DL (8.5-10.1); CARBON DIOXIDE 24 MMOL/L (21-32); CHLORIDE 105 MMOL/L (98-107); CREATININE SERUM 0.53 MG/DL (0.60-1.30); GFR ESTIMATED > 60; GLUCOSE 122 MG/DL (70-105); POTASSIUM 4.5 MMOL/L (3.6-5.0); SODIUM 142 MMOL/L (135-145); TOTAL PROTEIN 7.2 GM/DL (6.4-8.2)
[2018-09-21 16:45] LABS: HEMATOCRIT 34 % (35-52); HEMOGLOBIN 10.3 G/DL (11.5-16.0); MEAN CORPUSCULAR HEMOGLOBIN 25 PG (25-34); MEAN CORPUSCULAR HGB CONC 30 G/DL (32-36); MEAN CORPUSCULAR VOLUME 81 FL (80-99); PLATELET COUNT 388 10^3/uL (130-400); RED CELL DISTRIBUTION WIDTH 16.5 % (10.0-14.5); WHITE BLOOD COUNT 5.8 10^3/uL (4.3-11.0)
[2018-09-21 16:46] LABS: BASOPHILS % (AUTO) 1 % (0-10); EOSINOPHILS # (AUTO) 0.2 10^3/uL (0.0-0.3); EOSINOPHILS % (AUTO) 3 % (0-10); LYMPHOCYTES # (AUTO) 2.2 X 10^3 (1.0-4.0); LYMPHOCYTES % (AUTO) 38 % (12-44); MEAN PLATELET VOLUME 9.6 FL (7.4-10.4); MONOCYTES # (AUTO) 0.4 X 10^3 (0.0-1.0); MONOCYTES % (AUTO) 8 % (0-12); NEUTROPHILS % (AUTO) 52 % (42-75)
[2018-09-21 17:50] LABS: CARBON DIOXIDE 27 MMOL/L (21-32); CHLORIDE 102 MMOL/L (98-107); POTASSIUM 4.6 MMOL/L (3.6-5.0); SODIUM 140 MMOL/L (135-145)
[2018-09-21 17:51] LABS: ALANINE AMINOTRANSFERASE 8 U/L (0-55); ALBUMIN 3.7 GM/DL (3.2-4.5); ALKALINE PHOSPHATASE 98 U/L (40-136); BILIRUBIN,TOTAL 0.2 MG/DL (0.1-1.0); BUN/CREATININE RATIO 12; CALCIUM 9.2 MG/DL (8.5-10.1); CREATININE SERUM 0.57 MG/DL (0.60-1.30); GFR ESTIMATED > 60; GLUCOSE 109 MG/DL (70-105); TOTAL PROTEIN 6.8 GM/DL (6.4-8.2)
[2018-12-01] MEDS ORDERED: HYDR-34 PO (15:30)
[2018-12-03] MEDS ORDERED: OXYC-199 PO (13:31)
[2018-12-03] MEDS ORDERED: CLIN300C11 PO (13:31)
== END 2018-12-05 | disposition home or self-care (01) ==
LOC: IHC 13:25
PROVIDERS: ATTEND Internal Medicine
DX: Z51.81 Encounter for therapeutic drug level monitoring (principal); Z79.2 Long term (current) use of antibiotics
CPT/HCPCS: 36415; 80053; 85025; 85027

== ENCOUNTER → 2018-09-21 | Outpatient (CLI) | payer MEDICAID | LOC: LAB FS 12:32 | PROVIDERS: ATTEND Internal Medicine | DX: Z51.81 Encounter for therapeutic drug level monitoring (principal); Z79.2 Long term (current) use of antibiotics ==

== ENCOUNTER → 2018-10-26 | Outpatient (CLI) | payer MEDICAID ==
[2018-10-26 14:07] LABS: WHITE BLOOD COUNT 7.3 10^3/uL (4.3-11.0)
[2018-10-26 14:08] LABS: BASOPHILS % (AUTO) 0 % (0-10); EOSINOPHILS # (AUTO) 0.2 10^3/uL (0.0-0.3); EOSINOPHILS % (AUTO) 3 % (0-10); HEMATOCRIT 31 % (35-52); HEMOGLOBIN 9.4 G/DL (11.5-16.0); LYMPHOCYTES # (AUTO) 2.6 X 10^3 (1.0-4.0); LYMPHOCYTES % (AUTO) 36 % (12-44); MEAN CORPUSCULAR HEMOGLOBIN 24 PG (25-34); MEAN CORPUSCULAR HGB CONC 30 G/DL (32-36); MEAN CORPUSCULAR VOLUME 81 FL (80-99); MEAN PLATELET VOLUME 9.4 FL (7.4-10.4); MONOCYTES # (AUTO) 0.5 X 10^3 (0.0-1.0); MONOCYTES % (AUTO) 6 % (0-12); NEUTROPHILS % (AUTO) 55 % (42-75); PLATELET COUNT 470 10^3/uL (130-400); RED CELL DISTRIBUTION WIDTH 18.7 % (10.0-14.5)
[2018-10-26 14:09] LABS: BUN/CREATININE RATIO 20; CARBON DIOXIDE 25 MMOL/L (21-32); CHLORIDE 102 MMOL/L (98-107); ERYTHROCYTE SEDIMENTATION RATE 63 MM/HR (0-20); GFR ESTIMATED > 60; POTASSIUM 4.1 MMOL/L (3.6-5.0); SODIUM 142 MMOL/L (135-145)
[2018-10-26 14:10] LABS: ALANINE AMINOTRANSFERASE 5 U/L (0-55); ALBUMIN 3.2 GM/DL (3.2-4.5); ALKALINE PHOSPHATASE 68 U/L (40-136); BILIRUBIN,TOTAL 0.2 MG/DL (0.1-1.0); CALCIUM 8.9 MG/DL (8.5-10.1); GLUCOSE 77 MG/DL (70-105); TOTAL PROTEIN 6.8 GM/DL (6.4-8.2)
== END ==
LOC: LAB FS 12:37
DX: Z51.81 Encounter for therapeutic drug level monitoring (principal); Z79.2 Long term (current) use of antibiotics
CPT/HCPCS: 36415; 80053; 85025; 85652; 86141

== ENCOUNTER → 2018-11-01 | Outpatient (CLI) | payer MEDICAID ==
[2018-11-01 11:49] LABS: HEMATOCRIT 37 % (35-52); HEMOGLOBIN 11.2 G/DL (11.5-16.0); MEAN CORPUSCULAR HEMOGLOBIN 25 PG (25-34); WHITE BLOOD COUNT 7.1 10^3/uL (4.3-11.0)
[2018-11-01 11:50] LABS: BASOPHILS # (AUTO) 0.1 10^3/uL (0.0-0.1); BASOPHILS % (AUTO) 1 % (0-10); EOSINOPHILS # (AUTO) 0.2 10^3/uL (0.0-0.3); EOSINOPHILS % (AUTO) 3 % (0-10); LYMPHOCYTES # (AUTO) 2.6 X 10^3 (1.0-4.0); LYMPHOCYTES % (AUTO) 37 % (12-44); MEAN CORPUSCULAR HGB CONC 31 G/DL (32-36); MEAN CORPUSCULAR VOLUME 80 FL (80-99); MEAN PLATELET VOLUME 9.4 FL (7.4-10.4); MONOCYTES # (AUTO) 0.6 X 10^3 (0.0-1.0); MONOCYTES % (AUTO) 8 % (0-12); NEUTROPHILS # (AUTO) 3.6 X 10^3 (1.8-7.8); NEUTROPHILS % (AUTO) 51 % (42-75); PLATELET COUNT 529 10^3/uL (130-400); RED CELL DISTRIBUTION WIDTH 19.5 % (10.0-14.5)
[2018-11-01 12:15] LABS: ERYTHROCYTE SEDIMENTATION RATE 54 MM/HR (0-20)
[2018-11-01 12:16] LABS: ALANINE AMINOTRANSFERASE 10 U/L (0-55); ALBUMIN 4.2 GM/DL (3.2-4.5); ALKALINE PHOSPHATASE 98 U/L (40-136); BILIRUBIN,TOTAL 0.3 MG/DL (0.1-1.0); BUN/CREATININE RATIO 21; CALCIUM 9.6 MG/DL (8.5-10.1); CARBON DIOXIDE 24 MMOL/L (21-32); CHLORIDE 101 MMOL/L (98-107); CREATININE SERUM 0.61 MG/DL (0.60-1.30); GFR ESTIMATED > 60; GLUCOSE 104 MG/DL (70-105); POTASSIUM 4.2 MMOL/L (3.6-5.0); SODIUM 140 MMOL/L (135-145)
== END ==
LOC: LAB FS 11:06
DX: Z51.81 Encounter for therapeutic drug level monitoring (principal); Z79.2 Long term (current) use of antibiotics
CPT/HCPCS: 36415; 80053; 85025; 85652; 86141

== ENCOUNTER → 2018-11-09 | Outpatient (CLI) | payer MEDICAID ==
[2018-11-09 13:57] LABS: CARBON DIOXIDE 24 MMOL/L (21-32); CHLORIDE 100 MMOL/L (98-107); POTASSIUM 3.8 MMOL/L (3.6-5.0); SODIUM 138 MMOL/L (135-145)
[2018-11-09 13:58] LABS: ALANINE AMINOTRANSFERASE 7 U/L (0-55); ALBUMIN 4.1 GM/DL (3.2-4.5); ALKALINE PHOSPHATASE 93 U/L (40-136); BILIRUBIN,TOTAL 0.3 MG/DL (0.1-1.0); BUN/CREATININE RATIO 16; CREATININE SERUM 0.63 MG/DL (0.60-1.30); GFR ESTIMATED > 60; GLUCOSE 96 MG/DL (70-105); TOTAL PROTEIN 7.5 GM/DL (6.4-8.2)
[2018-11-09 14:21] LABS: HEMATOCRIT 36 % (35-52); HEMOGLOBIN 11.1 G/DL (11.5-16.0); MEAN CORPUSCULAR HEMOGLOBIN 25 PG (25-34); MEAN CORPUSCULAR VOLUME 80 FL (80-99)
[2018-11-09 14:22] LABS: BASOPHILS % (AUTO) 1 % (0-10); EOSINOPHILS # (AUTO) 0.2 10^3/uL (0.0-0.3); EOSINOPHILS % (AUTO) 3 % (0-10); LYMPHOCYTES # (AUTO) 3.3 X 10^3 (1.0-4.0); LYMPHOCYTES % (AUTO) 46 % (12-44); MEAN CORPUSCULAR HGB CONC 31 G/DL (32-36); MEAN PLATELET VOLUME 9.8 FL (7.4-10.4); MONOCYTES # (AUTO) 0.5 X 10^3 (0.0-1.0); MONOCYTES % (AUTO) 8 % (0-12); NEUTROPHILS % (AUTO) 42 % (42-75); PLATELET COUNT 345 10^3/uL (130-400); RED CELL DISTRIBUTION WIDTH 19.3 % (10.0-14.5)
[2018-11-09 14:23] LABS: BASOPHILS # (AUTO) 0.1 10^3/uL (0.0-0.1); ERYTHROCYTE SEDIMENTATION RATE 37 MM/HR (0-20)
== END ==
LOC: LAB FS 13:18
PROVIDERS: ATTEND Internal Medicine
DX: Z51.81 Encounter for therapeutic drug level monitoring (principal); Z79.2 Long term (current) use of antibiotics
CPT/HCPCS: 36415; 80053; 85025; 85652; 86141

== ENCOUNTER → 2018-11-16 | Outpatient (CLI) | payer MEDICAID ==
[2018-11-16 15:21] LABS: WHITE BLOOD COUNT 8.3 10^3/uL (4.3-11.0)
[2018-11-16 15:22] LABS: BASOPHILS % (AUTO) 1 % (0-10); EOSINOPHILS # (AUTO) 0.4 10^3/uL (0.0-0.3); EOSINOPHILS % (AUTO) 4 % (0-10); HEMATOCRIT 38 % (35-52); HEMOGLOBIN 11.7 G/DL (11.5-16.0); LYMPHOCYTES # (AUTO) 3.3 X 10^3 (1.0-4.0); LYMPHOCYTES % (AUTO) 40 % (12-44); MEAN CORPUSCULAR HEMOGLOBIN 25 PG (25-34); MEAN CORPUSCULAR HGB CONC 31 G/DL (32-36); MEAN CORPUSCULAR VOLUME 82 FL (80-99); MEAN PLATELET VOLUME 9.9 FL (7.4-10.4); MONOCYTES # (AUTO) 0.6 X 10^3 (0.0-1.0); MONOCYTES % (AUTO) 7 % (0-12); NEUTROPHILS % (AUTO) 48 % (42-75); PLATELET COUNT 346 10^3/uL (130-400); RED CELL DISTRIBUTION WIDTH 20.5 % (10.0-14.5)
[2018-11-16 15:34] LABS: ALANINE AMINOTRANSFERASE 10 U/L (0-55); ALBUMIN 4.5 GM/DL (3.2-4.5); ALKALINE PHOSPHATASE 102 U/L (40-136); BILIRUBIN,TOTAL 0.2 MG/DL (0.1-1.0); BUN/CREATININE RATIO 14; CALCIUM 9.3 MG/DL (8.5-10.1); CARBON DIOXIDE 23 MMOL/L (21-32); CHLORIDE 104 MMOL/L (98-107); CREATININE SERUM 0.66 MG/DL (0.60-1.30); GFR ESTIMATED > 60; GLUCOSE 92 MG/DL (70-105); SODIUM 143 MMOL/L (135-145); TOTAL PROTEIN 7.9 GM/DL (6.4-8.2)
[2018-11-16 16:50] LABS: ERYTHROCYTE SEDIMENTATION RATE 9 MM/HR (0-20)
== END ==
LOC: LAB FS 15:06
PROVIDERS: ATTEND Internal Medicine
DX: T81.41XA Infection following a procedure, superficial incisional surgical site, initial encounter (principal); A41.01 Sepsis due to Methicillin susceptible Staphylococcus aureus
CPT/HCPCS: 36415; 80053; 85025; 85652; 86141

== ENCOUNTER 2018-12-01 12:19 | Emergency (ER) | payer MEDICAID | END 2018-12-01 15:30 | disposition home or self-care (01) | LOC: ER FS 12:19 ==

== ENCOUNTER 2018-12-03 11:04 | Emergency (ER) | payer MEDICAID ==
[~2018-12-03] VITALS: Ht 162.6 cm; Wt 88.5 kg
[~2018-12-03 11:04] MED LIST: HYDR-34 PO
--- NOTE | 2018-12-03 11:18 | ED General ---
General Chief Complaint: General Problems/Pain Stated Complaint: LT HIP PAIN & REDNESS History of Present Illness Date Seen by Provider: Dec 03, 2018 Time Seen by Provider: 11:17 Initial Comments Patient is seen and examined. Patient is status post left hip replacement earlier this year. She has had multiple complications including infection since her procedure. She also had wound dehiscence and wound infection as well. She has required hospitalizations and had a PICC line placed and was on IV antibio tics until recently. Her PICC line was recently removed. The patient comes to the ER today complaining of worsening discomfort and redness at the incision site and she has concerns that she has return of infection. The patient was in the emergency room 2 days earlier and did have labs done at that time which did not raise suspicion for worsening infection. She states her symptoms have worsened since then. No fever or chills. Her symptoms are isolated to the incision site over the left hip but she has concerns that her current symptoms are similar to when she previously developed sepsis as a result of her infection. Allergies and Home Medications Allergies Coded Allergies: Sulfa (Sulfonamide Antibiotics) (Verified Allergy, Unknown, 08/21/18) ciprofloxacin (Verified Allergy, Unknown, 08/12/18) levofloxacin (Verified Allergy, Unknown, 08/12/18) vancomycin (Verified Allergy, Unknown, 08/12/18) Uncoded Allergies: SULFA (Allergy, Unknown, 08/12/18) Home Medications Clindamycin HCl 300 Mg Capsule, 300 MG PO Q6H Prescribed by: SANDRA HICKMAN on 12/03/18 1331 Hydrocodone Bit/Acetaminophen 1 Ea Tablet, 1 EACH PO Q6H Prescribed by: JAVIER HICKMAN on 12/01/18 1530 Oxycodone HCl/Acetaminophen 1 Each Tablet, 1 TAB PO Q6H PRN for PAIN-MODERATE Prescribed by: SANDRA HICKMAN on 12/03/18 1331 Patient Home Medication List Home Medication List Reviewed: Yes Review of Systems Review of Systems Constitutional: no symptoms reported EENTM: no symptoms reported Respiratory: no symptoms reported Cardiovascular: no symptoms reported Gastrointestinal: no symptoms reported Musculoskeletal: see HPI Immunological/Allergic: no symptoms reported Past Vuuoizh-Ibbzlf-Zjhnkt Hx Patient Social History Type Used: Cigarettes 2nd Hand Smoke Exposure: Yes Recent Hopitalizations: No Seasonal Allergies Seasonal Allergies: No Past Medical History Surgeries: Yes (hip, bi-lat knee, left hip dysplasia repair) Appendectomy, Section, Gallbladder, Orthopedic Respiratory: No Cardiac: No Neurological: No Genitourinary: No Gastrointestinal: No Musculoskeletal: No Endocrine: No HEENT: No Cancer: No Psychosocial: No Integumentary: No Blood Disorders: No Physical Exam Vital Signs Capillary Refill : Height, Weight, BMI Height: 5'4.00" Weight: 195lbs. oz. 88.541196zq; BMI Method:Stated General Appearance: No Apparent Distress, WD/WN Focused Exam Lactate Level 12/03/18 11:25: Lactic Acid Level 0.68 Lactic Acid Level Laboratory Tests Test 12/03/18 11:25 Lactic Acid Level 0.68 MMOL/L (0.50-2.00) Progress/Results/Core Measures Suspected Sepsis SIRS Temperature: Pulse: Respiratory Rate: Laboratory Tests 12/03/18 11:25: White Blood Count 7.6 Blood Pressure / Mean: 12/03/18 11:25: Lactic Acid Level 0.68 Laboratory Tests 12/03/18 11:25: Creatinine 0.63, Platelet Count 352 Results/Orders Lab Results Laboratory Tests Test 12/03/18 11:25 Range/Units White Blood Count 7.6 4.3-11.0 10^3/uL Red Blood Count 4.65 4.35-5.85 10^6/uL Hemoglobin 12.1 11.5-16.0 G/DL Hematocrit 38 35-52 % Mean Corpuscular Volume 81 80-99 FL Mean Corpuscular Hemoglobin 26 25-34 PG Mean Corpuscular Hemoglobin Concent 32 32-36 G/DL Red Cell Distribution Width 19.2 H 10.0-14.5 % Platelet Count 352 130-400 10^3/uL Mean Platelet Volume 9.4 7.4-10.4 FL Neutrophils (%) (Auto) 58 42-75 % Lymphocytes (%) (Auto) 30 12-44 % Monocytes (%) (Auto) 8 0-12 % Eosinophils (%) (Auto) 3 0-10 % Basophils (%) (Auto) 1 0-10 % Neutrophils # (Auto) 4.4 1.8-7.8 X 10^3 Lymphocytes # (Auto) 2.3 1.0-4.0 X 10^3 Monocytes # (Auto) 0.6 0.0-1.0 X 10^3 Eosinophils # (Auto) 0.2 0.0-0.3 10^3/uL Basophils # (Auto) 0.0 0.0-0.1 10^3/uL Neutrophils % (Manual) 53 % Lymphocytes % (Manual) 27 % Monocytes % (Manual) 9 % Eosinophils % (Manual) 2 % Band Neutrophils 9 % Hypochromasia 1+ Microcytosis 2+ Erythrocyte Sedimentation Rate 26 H 0-20 MM/HR Sodium Level 139 135-145 MMOL/L Potassium Level 4.1 3.6-5.0 MMOL/L Chloride Level 100 98-107 MMOL/L Carbon Dioxide Level 25 21-32 MMOL/L Anion Gap 14 5-14 MMOL/L Blood Urea Nitrogen 11 7-18 MG/DL Creatinine 0.63 0.60-1.30 MG/DL Estimat Glomerular Filtration Rate > 60 BUN/Creatinine Ratio 17 Glucose Level 103 70-105 MG/DL Lactic Acid Level 0.68 0.50-2.00 MMOL/L Calcium Level 9.3 8.5-10.1 MG/DL My Orders Orders - SANDRA HICKMAN DO Ed Iv/Invasive Line Start (12/03/18 11:14) Cbc And Manual Diff (12/03/18 11:14) Basic Metabolic Panel (12/03/18 11:14) Erythrocyte Sedimentation Rate (12/03/18 11:14) Lactic Acid Analyzer (12/03/18 11:18) Blood Culture (12/03/18 11:18) Ct Extremity Lower Left W (12/03/18 11:20) Hs C Reactive Protein (12/03/18 11:25) Blood Culture (12/03/18 11:51) Iohexol Injection (Omnipaque 350 Mg/Ml 1 (12/03/18 12:00) Received Contrast (Hold Metformin- Contr (12/03/18 12:00) Sodium Chloride Flush (Catheter Flush Sy (12/03/18 12:00) Ns (Ivpb) (Sodium Chloride 0.9% Ivpb Bag (12/03/18 12:00) Ondansetron Injection (Zofran Injectio (12/03/18 12:15) Morphine Injection (Morphine Injection (12/03/18 12:09) Medications Given in ED Current Medications Medications Dose Ordered Sig/Amarilys Route Start Time Stop Time Status Last Admin Dose Admin Iohexol 100 ml ONCE ONCE IV 12/03/18 12:00 12/03/18 12:08 DC 12/03/18 12:18 100 ML Ondansetron HCl 4 mg ONCE ONCE IVP 12/03/18 12:15 12/03/18 12:16 DC 12/03/18 12:23 4 MG Sodium Chloride 10 ml NEEDED PRN IV 12/03/18 12:00 12/03/18 12:18 10 ML Sodium Chloride 100 ml ONCE ONCE IV 12/03/18 12:00 12/03/18 12:08 DC 12/03/18 12:17 80 ML Vital Signs/I&O Capillary Refill : Progress Note : Time: 11:32 Progress Note Patient is seen and examined. Overall, the patient appears nontoxic and is afebrile. Evaluation of the area on her hip where the incision is reveals a large vertical incision in the skin with some dehiscence and what seems to be purulent matter in the area of dehiscence. There is local erythema and a scar tissue present. The wound does not appear severely infected or cellulitic around the edges but does have mild erythema and the patient describes that it is worse from 2 days ago. Will recheck CBC for comparison. This visit, will check la ctate and inflammatory markers to r/o progressive infection. 13:30: All results are reviewed. The sedimentation rate is mildly elevated but not to the point to suggest any severe inflammatory process. Lactate is normal range. Her white blood cell count is actually diminished from 2 days earlier. Overall, the examination of her wound is described above but I did not see it 2 days ago to appreciate if it is significantly worse or not. Grossly, it does not appear severely infected. The patient primarily has apprehension because she has been subject to severe sepsis in the past. Today, this diagnosis has been ruled out. The patient does not meet criteria for inpatient therapy or IV therapy at this time. As a precaution, she is placed on clindamycin which she states is what she has used outpatient in the past. She is given some Percocet for pain. Narcotic precautions were discussed as well. The patient already has close follow-up appointment scheduled with primary physician locally and she is in the process of arranging follow-up in the orthopedic Department at . I did explain to the patient that we could only evaluate her at the time that she is in the emergency room and that we cannot predict if her symptoms would worsen. Because of this, close return precautions were discussed. The patient will come back to the ER if she develops any worsening redness, drainage, pain, or other symptoms that are concerning. Departure Impression Primary Impression: Hip pain Disposition: 01 HOME, SELF-CARE Condition: Improved Departure-Patient Inst. Referrals: BENJAMÍN GIVENS MD (PCP/Family) Primary Care Physician Scripts Clindamycin HCl (Clindamycin HCl) 300 Mg Capsule 300 MG PO Q6H for 1 Day, #40 CAP 0 Refills Prov: SANDRA HICKMAN DO 12/03/18 Oxycodone HCl/Acetaminophen (Percocet 5-325 mg Tablet) 1 Each Tablet 1 TAB PO Q6H PRN for PAIN-MODERATE MDD 6 for 7 Days, #30 TAB 0 Refills Prov: SANDRA HICKMAN DO 12/03/18 SANDRA HICKMAN DO Dec 03, 2018 11:18
[2018-12-03] MEDS ORDERED: HOLD METFORMIN - RECEIVED CONTRAST 20 ML VIAL IV SCH (12:00)
[2018-12-03] MEDS ORDERED: NS 100 ML (IVPB) BAG IV ONE (12:00)
[2018-12-03] MEDS ORDERED: CATHETER FLUSH 10 ML SYR IV PRN (12:00)
[2018-12-03] MEDS ORDERED: IOHEXOL 350 MG/ML 100 ML (OMNIPAQUE 350) VIAL IV ONE (12:00)
[2018-12-03 12:03] LABS: BUN/CREATININE RATIO 17; CALCIUM 9.3 MG/DL (8.5-10.1); CARBON DIOXIDE 25 MMOL/L (21-32); CHLORIDE 100 MMOL/L (98-107); CREATININE SERUM 0.63 MG/DL (0.60-1.30); GFR ESTIMATED > 60; GLUCOSE 103 MG/DL (70-105); POTASSIUM 4.1 MMOL/L (3.6-5.0); SODIUM 139 MMOL/L (135-145); WHITE BLOOD COUNT 7.6 10^3/uL (4.3-11.0)
[2018-12-03 12:04] LABS: BASOPHILS % (AUTO) 1 % (0-10); EOSINOPHILS # (AUTO) 0.2 10^3/uL (0.0-0.3); EOSINOPHILS % (AUTO) 3 % (0-10); HEMATOCRIT 38 % (35-52); HEMOGLOBIN 12.1 G/DL (11.5-16.0); LYMPHOCYTES # (AUTO) 2.3 X 10^3 (1.0-4.0); LYMPHOCYTES % (AUTO) 30 % (12-44); MEAN CORPUSCULAR HEMOGLOBIN 26 PG (25-34); MEAN CORPUSCULAR HGB CONC 32 G/DL (32-36); MEAN CORPUSCULAR VOLUME 81 FL (80-99); MEAN PLATELET VOLUME 9.4 FL (7.4-10.4); MONOCYTES # (AUTO) 0.6 X 10^3 (0.0-1.0); MONOCYTES % (AUTO) 8 % (0-12); NEUTROPHILS % (AUTO) 58 % (42-75); PLATELET COUNT 352 10^3/uL (130-400); RED CELL DISTRIBUTION WIDTH 19.2 % (10.0-14.5)
[2018-12-03 12:05] LABS: NEUTROPHILS # (AUTO) 4.4 X 10^3 (1.8-7.8)
[2018-12-03] MEDS ORDERED: morphine INJ 10 MG/ML 1ML (SYR OR VIAL) IVP STA (12:09)
[2018-12-03 12:11] LABS: BAND NEUTROPHILS 9 %; EOSINOPHILS % (MANUAL) 2 %; ERYTHROCYTE SEDIMENTATION RATE 26 MM/HR (0-20); HYPOCHROMASIA 1+; LYMPHOCYTES % (MANUAL) 27 %; MICROCYTOSIS 2+; MONOCYTES % (MANUAL) 9 %; NEUTROPHILS % (MANUAL) 53 %
[2018-12-03] MEDS ORDERED: ONDANSETRON 4 MG/2 ML (SDV) Z0FRAN IVP ONE (12:15)
--- NOTE | 2018-12-03 12:57 | Diagnostic Imaging Report ---
PROCEDURE: CT left lower extremity with contrast. TECHNIQUE: Multiple axial images of the left lower extremity were obtained after intravenous administration of iodinated contrast. Auto Exposure Controls were utilized during the CT exam to meet ALARA standards for radiation dose reduction. INDICATION: Left hip pain and prior left pelvic surgery. Study is performed to evaluate for abscess. FINDINGS: Postsurgical changes of left iliac bone are again noted. The two fully threaded screws extend through the left iliac. The area of soft tissue thickening anterior to the left iliac extending to the skin surface is again noted. There is stranding in the subcutaneous fat. However, no superficial or deep soft tissue fluid collection or abscess is identified. There are some reactive lymph nodes in the left inguinal region. Femoroacetabular alignment is normal. No acute fractures are seen. IMPRESSION: There continues to be soft tissue thickening anteriorly at the level of the left iliac and left hip, similar to the exam two days earlier. No abnormal enhancement or evidence of abscess is identified. Dictated by: Dictated on workstation # [id number]
[2018-12-03] MEDS ORDERED: OXYC-199 PO (13:31)
[2018-12-03] MEDS ORDERED: CLIN300C11 PO (13:31)
[2018-12-03 13:39] VITALS: BP 120/72
--- OUTSIDE RECORDS SUMMARY | 2018-12-03 19:35 | XMS REPORT | Continuity of Care Document ---
Author Organization Unknown Address Unknown Allergies Active Description Code Type Severity Reaction Onset Reported/Identified Relationship to Patient Clinical Status Yes CIPRO UNKNOWN OTHER Yes CIPRO UNKNOWN UNKNOWN Yes PENICILLINS UNKNOWN OTHER Yes PENICILLINS UNKNOWN UNKNOWN Yes SULFA (SULFONAMIDE ANTIBIOTICS) UNKNOWN OTHER Yes SULFA (SULFONAMIDE ANTIBIOTICS) UNKNOWN UNKNOWN Yes VANCOMYCIN UNKNOWN OTHER Yes VANCOMYCIN UNKNOWN UNKNOWN Yes ciprofloxacin [id number] Drug Allergy Unknown N/A 08/12/2018 Yes levofloxacin [id number] Drug Allergy Unknown N/A 08/12/2018 Yes No Known Drug Allergies [id number] Drug Allergy Unknown N/A 08/12/2018 Yes SULFA SULFA Unknown N/A 08/12/2018 Yes vancomycin [id number] Drug Allergy Unknown N/A 08/12/2018 Yes Sulfa (Sulfonamide Antibiotics) [id number] Drug Allergy Unknown N/A 08/21/2018 Medications Medication Packaging Start Date Stop Date Route Dosage Sig GI COCKTAIL SINGLE DOSE LIQ (GRASSHOPPER) ML 02/03/2018 02/03/2018 ONCE&1427 KETOROLAC VIAL INJ 60 MG/2CC (TORADOL VIAL) MG 02/03/2018 02/03/2018 ONCE&1506 FENTANYL INJ 100 MCG/2CC VIAL MCG 06/12/2018 06/12/2018 ONCE&1322 PROMETHAZINE VIAL INJ 25 MG/CC (PHENERGAN VIAL) MG 06/12/2018 06/12/2018 ONCE&1322 OXYCODONE 5MG/APAP 325MG TAB(PERCOCET-5) TAB 06/22/2018 06/22/2018 ONCE&1149 ONDANSETRON VIAL INJ 4 MG/2CC (ZOFRAN 2CC VIAL) MG 06/28/2018 06/28/2018 PRN ONCE FENTANYL INJ 100 MCG/2CC VIAL MCG 06/28/2018 06/28/2018 ONCE&1710 FENTANYL INJ 100 MCG/2CC VIAL MCG 06/28/2018 06/28/2018 ONCE&1750 FENTANYL INJ 100 MCG/2CC VIAL MCG 06/28/2018 06/28/2018 ONCE&1900 LACTATED RINGERS 1000CC IV BAG INJ ml 06/28/2018 06/28/2018 ONCE&1908 FENTANYL INJ 100 MCG/2CC VIAL MCG 06/28/2018 06/28/2018 ONCE&2000 FENTANYL INJ 100 MCG/2CC VIAL MCG 08/23/2018 08/23/2018 ONCE&1432 FENTANYL INJ 100 MCG/2CC VIAL MCG 08/23/2018 08/23/2018 ONCE&1524 FENTANYL INJ 100 MCG/2CC VIAL MCG 10/01/2018 10/01/2018 ONCE&1827 FENTANYL INJ 100 MCG/2CC VIAL MCG 10/18/2018 10/18/2018 ONCE&2115 FENTANYL INJ 100 MCG/2CC VIAL MCG 10/18/2018 10/18/2018 ONCE&2209 ACETAMINOPHEN ORAL TABLET 325mg(Tylenol) MG 10/18/2018 10/18/2018 ONCE&2306 FENTANYL INJ 100 MCG/2CC VIAL MCG 10/18/2018 10/18/2018 ONCE&2308 NORMAL SALINE 1000CC IV BAG INJ 0.9 % (NS 1000CC IV BAG) ml 10/18/2018 11/02/2018 CONTINUOUSEVERY 0 Hour MEROPENEM VIAL INJ 1 GM (MERRAM VIAL) GM 10/18/2018 10/18/2018 ONCE&2340 FENTANYL INJ 100 MCG/2CC VIAL MCG 10/19/2018 10/19/2018 ONCE&0026 HYDROCODONE/APAP 5MG/325MG TAB 5 MG/325MG (ACOSTA-TAB 5/325) TAB 11/26/2018 11/26/2018 ONCE&1449 Problems Date Dx Coded Attending Type Code Diagnosis Diagnosed By 02/03/2018 Jessica Craven 564.00 CONSTIPATION, UNSPECIFIED 02/03/2018 Jessica Craven 789.02 ABDOMINAL PAIN, LEFT UPPER QUADRANT 02/03/2018 Jessica Craven K59.00 CONSTIPATION, UNSPECIFIED 02/03/2018 Jessica Craven R10.12 LEFT UPPER QUADRANT PAIN 06/12/2018 Jeovany Pennington W 338.18 OTHER ACUTE POSTOPERATIVE PAIN 06/12/2018 Jeovany Pennington 719.45 PAIN IN JOINT INVOLVING PELVIC REGION AND THIGH 06/12/2018 Jeovany Pennington G89.18 OTHER ACUTE POSTPROCEDURAL PAIN 06/12/2018 Jeovany Pennington M25.552 PAIN IN LEFT HIP 06/19/2018 LEIGHANN MERAZ 998.11 HEMORRHAGE COMPLICATING A PROCEDURE 06/19/2018 LEIGHANN MERAZ 998.32 DISRUPTION OF EXTERNAL OPERATION (SURGICAL) WOUND 06/19/2018 LEIGHANN MERAZ 998.51 INFECTED POSTOPERATIVE SEROMA 06/19/2018 LEIGHANN MERAZ M96.842 POSTPROC SEROMA OF A MS STRUCTURE FOL A MS SYS PROCEDURE 06/19/2018 LEIGHANN MERAZ T81.31XA DISRUPTION OF EXTERNAL OPERATION (SURGICAL) WOUND, NEC, INIT 06/19/2018 LEIGHANN MERAZ T81.4XXA INFECTION FOLLOWING A PROCEDURE, INITIAL ENCOUNTER 06/22/2018 Jeovany Pennington 998.11 HEMORRHAGE COMPLICATING A PROCEDURE 06/22/2018 Jeovany Pennington M96.842 POSTPROC SEROMA OF A MS STRUCTURE FOL A MS SYS PROCEDURE 06/28/2018 Jeovany Pennington 996.67 INFECTION AND INFLAMMATORY REACTION DUE TO OTHER INTERNAL ORTHOPEDIC DEVICE, IMPLANT, AND GRAFT 06/28/2018 Jeovany Pennington T84.69XA INFECT/INFLM REACTION DUE TO INT FIX OF SITE, INIT 08/13/2018 ANETTE ANGELO DO Ot F17.210 NICOTINE DEPENDENCE, CIGARETTES, UNCOMPL 08/13/2018 ANETTE ANGELO DO T Ot L03.116 CELLULITIS OF LEFT LOWER LIMB 08/13/2018 ANETTE ANGELO DO Ot L03.317 CELLULITIS OF BUTTOCK 08/13/2018 ANETTE ANGELO DO Ot R50.9 FEVER, UNSPECIFIED 08/13/2018 ANETTE ANGELO DO Ot Z88.1 ALLERGY STATUS TO OTHER ANTIBIOTIC AGENT 08/13/2018 ANETTE ANGELO DO Ot Z88.2 ALLERGY STATUS TO SULFONAMIDES STATUS 08/13/2018 ANETTE ANGELO DO T Ot Z90.49 ACQUIRED ABSENCE OF OTHER SPECIFIED PART 08/14/2018 ANETTE ANGELO DO T Ot F17.210 NICOTINE DEPENDENCE, CIGARETTES, UNCOMPL 08/14/2018 ANETTE ANGELO DO T Ot L03.116 CELLULITIS OF LEFT LOWER LIMB 08/14/2018 GI WILLIAMSONKWAMEED Rosio Ot L03.317 CELLULITIS OF BUTTOCK 08/14/2018 GI WILLIAMSONKWAMEED Rosio Ot R50.9 FEVER, UNSPECIFIED 08/14/2018 GI WILLIAMSON ANETTE Rosio Ot Z88.1 ALLERGY STATUS TO OTHER ANTIBIOTIC AGENT 08/14/2018 GI KWAMEED T Ot Z88.2 ALLERGY STATUS TO SULFONAMIDES STATUS 08/14/2018 GI KWAMEED Rosio Ot Z90.49 ACQUIRED ABSENCE OF OTHER SPECIFIED PART 08/21/2018 AJ MAKI MD Ot M25.552 PAIN IN LEFT HIP 08/21/2018 AJ MAKI MD Ot T84.52XD INFECT/INFLM REACTION DUE TO INTERNAL LE 08/21/2018 AJ MAKI MD Ot Z77.22 CNTCT W AND EXPSR TO ENVIRON TOBACCO SMO 08/21/2018 AJ MAKI MD Ot Z88.1 ALLERGY STATUS TO OTHER ANTIBIOTIC AGENT 08/21/2018 AJ MAKI MD Ot Z88.2 ALLERGY STATUS TO SULFONAMIDES STATUS 08/21/2018 AJ MAKI MD Ot Z88.8 ALLERGY STATUS TO OTH DRUG/MEDS/BIOL SUB 08/21/2018 AJ MAKI MD Ot Z90.49 ACQUIRED ABSENCE OF OTHER SPECIFIED PART 08/21/2018 AJ MAKI MD Ot Z98.890 OTHER SPECIFIED POSTPROCEDURAL STATES 08/23/2018 Jeovany Pennington 998.32 DISRUPTION OF EXTERNAL OPERATION (SURGICAL) WOUND 08/23/2018 Jeovany Pennington T81.31XA DISRUPTION OF EXTERNAL OPERATION (SURGICAL) WOUND, NEC, INIT 08/25/2018 AJ MAKI MD Ot M25.552 PAIN IN LEFT HIP 08/25/2018 AJ MAKI MD Ot T84.52XD INFECT/INFLM REACTION DUE TO INTERNAL LE 08/25/2018 AJ MAKI MD Ot Z77.22 CNTCT W AND EXPSR TO ENVIRON TOBACCO SMO 08/25/2018 AJ MAKI MD Ot Z88.1 ALLERGY STATUS TO OTHER ANTIBIOTIC AGENT 08/25/2018 AJ MAKI MD Ot Z88.2 ALLERGY STATUS TO SULFONAMIDES STATUS 08/25/2018 AJ MAKI MD Ot Z88.8 ALLERGY STATUS TO [facility] DRUG/MEDS/BIOL SUB 08/25/2018 AJ MAKI MD Ot Z90.49 ACQUIRED ABSENCE OF OTHER SPECIFIED PART 08/25/2018 AJ MAKI MD Ot Z98.890 OTHER SPECIFIED POSTPROCEDURAL STATES 09/01/2018 KLAUS FERRER MD, Ot T81.49XA INFECTION FOLLOWING A PROCEDURE, OTHER S 09/06/2018 KLAUS FERRER MD, Ot T81.49XA INFECTION FOLLOWING A PROCEDURE, OTHER S 09/07/2018 CARA NAGY MD, Ot Z51.81 ENCOUNTER FOR THERAPEUTIC DRUG LEVEL MON 09/07/2018 CARA NAGY MD, Ot Z79.2 [employer] (CURRENT) USE OF ANTIBIOTICS 09/07/2018 CARA NAGY MD, Ot Z51.81 ENCOUNTER FOR THERAPEUTIC DRUG LEVEL MON 09/07/2018 CARA NAGY MD, Ot Z79.2 USP (CURRENT) USE OF ANTIBIOTICS 09/16/2018 KLAUS FERRER MD, Ot T81.49XA INFECTION FOLLOWING A PROCEDURE, OTHER S 09/23/2018 Ot Z51.81 ENCOUNTER FOR THERAPEUTIC DRUG LEVEL MON 09/23/2018 Ot Z79.2 USP (CURRENT) USE OF ANTIBIOTICS 10/01/2018 Jeovany Pennington 924.01 CONTUSION OF HIP 10/01/2018 Jeovany Pennington S70.02XA CONTUSION OF LEFT HIP, INITIAL ENCOUNTER 10/19/2018 HARLEY NEVES W 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, UNSPECIFIED 10/19/2018 HARLEY NEVES A41.2 SEPSIS DUE TO UNSPECIFIED STAPHYLOCOCCUS 10/28/2018 KLAUS FERRER MD Ot Z51.81 ENCOUNTER FOR THERAPEUTIC DRUG LEVEL MON 10/28/2018 KLAUS FERRER MD, Ot Z79.2 [employer] (CURRENT) USE OF ANTIBIOTICS 11/02/2018 CARA NAGY MD Ot Z51.81 ENCOUNTER FOR THERAPEUTIC DRUG LEVEL MON 11/02/2018 CARA NAGY MD Ot Z79.2 [employer] (CURRENT) USE OF ANTIBIOTICS 11/04/2018 KLAUS FERRER MD Ot Z51.81 ENCOUNTER FOR THERAPEUTIC DRUG LEVEL MON 11/04/2018 KLAUS FERRER MD, Ot Z79.2 [employer] (CURRENT) USE OF ANTIBIOTICS 11/04/2018 CARA NAGY MD Ot Z51.81 ENCOUNTER FOR THERAPEUTIC DRUG LEVEL MON 11/04/2018 CARA NAGY MD Ot Z79.2 USP (CURRENT) USE OF ANTIBIOTICS 11/10/2018 ABRIL MARTINEZ MD, Ot Z51.81 ENCOUNTER FOR THERAPEUTIC DRUG LEVEL MON 11/10/2018 ABRIL MARTINEZ MD, Ot Z79.2 [employer] (CURRENT) USE OF ANTIBIOTICS 11/11/2018 KLAUS FERRER MD, Ot Z51.81 ENCOUNTER FOR THERAPEUTIC DRUG LEVEL Thu11/11/2018 KLAUS FERRER MD, Ot Z79.2 [employer] (CURRENT) USE OF ANTIBIOTICS 11/17/2018 KLAUS FERRER MD, Ot Z51.81 ENCOUNTER FOR THERAPEUTIC DRUG LEVEL MON 11/17/2018 KLAUS FERRER MD, Ot Z79.2 USP (CURRENT) USE OF ANTIBIOTICS 11/17/2018 KLAUS FERRER MD, Ot Z51.81 ENCOUNTER FOR THERAPEUTIC DRUG LEVEL Thu11/17/2018 KLAUS FERRER MD, Ot Z79.2 USP (CURRENT) USE OF ANTIBIOTICS 11/17/2018 KLAUS FERRER MD Ot Z51.81 ENCOUNTER FOR THERAPEUTIC DRUG LEVEL Thu11/17/2018 KLAUS FERRER MD, Ot Z79.2 [employer] (CURRENT) USE OF ANTIBIOTICS 11/17/2018 KLAUS FERRER MD, Ot Z51.81 ENCOUNTER FOR THERAPEUTIC DRUG LEVEL Thu11/17/2018 KLAUS FERRER MD, Ot Z79.2 [employer] (CURRENT) USE OF ANTIBIOTICS 11/19/2018 ABRIL MARTINEZ MD, Ot A41.01 SEPSIS DUE TO METHICILLIN SUSCEPTIBLE ST 11/19/2018 ABRIL MARTINEZ MD, Ot T81.41XA INFCT FOL A PROC, SUPERFIC INCISIONAL TAYLOR 11/26/2018 Jeovany Pennington W 719.45 PAIN IN JOINT INVOLVING PELVIC REGION AND THIGH 11/26/2018 Jeovany Pennington W M25.552 PAIN IN LEFT HIP 11/29/2018 KLAUS FERRER MD Ot Z51.81 ENCOUNTER FOR THERAPEUTIC DRUG LEVEL MON 11/29/2018 KLAUS FERRER MD, Ot Z79.2 [employer] (CURRENT) USE OF ANTIBIOTICS 12/01/2018 KLAUS FERRER MD, Ot T81.49XA INFECTION FOLLOWING A PROCEDURE, OTHER S 12/01/2018 YAKOV GALICIA, CARA Jackson Ot Z51.81 ENCOUNTER FOR THERAPEUTIC DRUG LEVEL MON 12/01/2018 CARA NAGY MD Ot Z79.2 [employer] (CURRENT) USE OF ANTIBIOTICS 12/01/2018 Ot Z51.81 ENCOUNTER FOR THERAPEUTIC DRUG LEVEL Thu12/01/2018 Ot Z79.2 USP (CURRENT) USE OF ANTIBIOTICS 12/01/2018 KLAUS FERRER MD Ot Z51.81 ENCOUNTER FOR THERAPEUTIC DRUG LEVEL Thu12/01/2018 KLAUS FERRER MD, Ot Z79.2 USP (CURRENT) USE OF ANTIBIOTICS 12/01/2018 KLAUS FERRER MD Ot Z51.81 ENCOUNTER FOR THERAPEUTIC DRUG LEVEL Thu12/01/2018 KLAUS FERRER MD, Ot Z79.2 [employer] SU[employer] (CURRENT) USE OF ANTIBIOTICS 12/01/2018 ABRIL MARTINEZ MD, Ot Z51.81 ENCOUNTER FOR THERAPEUTIC DRUG LEVEL Thu12/01/2018 ABRIL MARTINEZ MD, Ot Z79.2 [employer] SU[employer] (CURRENT) USE OF ANTIBIOTICS 12/01/2018 ABRIL MARTINEZ MD, Ot A41.01 SEPSIS DUE TO METHICILLIN SUSCEPTIBLE ST 12/01/2018 ABRIL MARTINEZ MD, Ot T81.41XA INFCT FOL A PROC, SUPERFIC INCISIONAL TAYLOR Procedures There is no data. Results Test Result Range Comprehensive Metabolic Panel - 02/03/18 13:45 Albumin 4.4 g/dL 3.6-5.1 ALP 83 U/L 35-130 ALT 11 U/L 6-45 Anion Gap 15 6-14 AST 14 U/L 2-40 BUN 14 mg/dL 5-25 Calcium 9.5 mg/dL 8.3-10.4 Chloride 106 mmol/L 95-114 CO2 23 mEq/L 22-33 Creat 0.81 mg/dL 0.50-1.50 eGFR 82 mL/min/1.73m2 >59 Globulin 3.1 g/dL 2.3-3.5 Glucose 127 mg/dL 70-110 Osmo 291 280-295 Potassium 3.9 mmol/L 3.5-5.3 Sodium 140 mmol/L 134-148 TBil 0.2 mg/dL 0.2-1.2 TP 7.5 g/dL 6.0-8.3 Urinalysis - 02/03/18 13:52 Icotest N/A Negative Urine Volume Urine Volume Sufficient (10mL) Urine Yeast No Yeast present Urine-Appearance Clear Clear Urine-Bacteria Negative Urine-Bilirubin Negative Negative Urine-Blood Negative Negative Urine-Color Yellow Colorless-Lt. Yellow Urine-Epithelial Cells 0-5/HPF Urine-Glucose Negative Negative Urine-Ketones Negative Negative Urine-Leukocytes Negative Negative Urine-Nitrite Negative Negative Urine-Other Urine Saved if Culture Needed (48hrs from time of collection) Urine-pH 5.5 5-8.5 Urine-Protein Negative Negative Urine-RBC Negative Urine-Specific [place] 1.025 1.000-1.030 Urine-WBC Nothing Seen on Microscopic Urobilinogen 0.2 E.U./dL 0.2-1.0 Sed Rate - 06/12/18 13:39 Sed Rate 69 mm/hr 9-15 Comprehensive Metabolic Panel - 06/19/18 16:30 Albumin 4.4 g/dL 3.6-5.1 ALP 106 U/L 35-130 ALT 13 U/L 6-45 Anion Gap 17 6-14 AST 17 U/L 2-40 BUN 14 mg/dL 5-25 Calcium 9.5 mg/dL 8.3-10.4 Chloride 104 mmol/L 95-114 CO2 22 mEq/L 22-33 Creat 0.74 mg/dL 0.50-1.50 eGFR 91 mL/min/1.73m2 >59 Globulin 2.7 g/dL 2.3-3.5 Glucose 105 mg/dL 70-110 Osmo 288 280-295 Potassium 4.0 mmol/L 3.5-5.3 Sodium 139 mmol/L 134-148 TBil 0.3 mg/dL 0.2-1.2 TP 7.1 g/dL 6.0-8.3 C-Reactive Protein - 06/19/18 16:30 C-Reactive Protein 0.83 mg/dL 0.00-0.50 Blood Culture - 06/19/18 16:30 PRELIM CULTURE RESULTS Blood Culture Negative, No Growth Day 1 FINAL CULTURE RESULTS Blood Culture Negative, No Growth Day 5 CULTURE SOURCE RT. [id number] 47 Lactic Acid - 06/19/18 16:35 Lactic Acid 8.1 mg/dL 4.5-19.8 Other Culture - 06/19/18 17:56 PRELIM CULTURE RESULTS Moderate Gram Positive. Coagulase negative staphylococcus species.Probable Skin Contaminant. FINAL CULTURE RESULTS Moderate Coagulase Negative Staphylococcus [id number] Skin [id number] Further Workup Done MEDIA PLATED Setup at 16:34 on 06/19/2018 Sed Rate - 06/22/18 11:54 Sed Rate 26 mm/hr 9-15 Sed Rate - 06/28/18 16:21 Sed Rate 81 mm/hr 9-15 Urinalysis - 06/28/18 16:21 Icotest Negative Negative Urine Volume Urine Volume Sufficient (10mL) Urine-Appearance Clear Clear Urine-Bacteria Trace Urine-Bilirubin 2+ Negative Urine-Blood Trace-lysed Negative Urine-Color Dk Yellow Colorless-Lt. Yellow Urine-Epithelial Cells 10-20/HPF Urine-Glucose Negative Negative Urine-Ketones 4+ Negative Urine-Leukocytes Negative Negative Urine-Mucus 1+ Urine-Nitrite Negative Negative Urine-Other Urine Saved if Culture Needed (48hrs from time of collection) Urine-pH 5.5 5-8.5 Urine-Protein 1+ Negative Urine-RBC Few/HPF Urine-Specific [place] 1.025 1.000-1.030 Urine-WBC Rare/HPF Urobilinogen 0.2 E.U./dL 0.2-1.0 Blood Culture - 06/28/18 16:32 PRELIM CULTURE RESULTS Blood Culture Negative, No Growth Day 1 MEDIA PLATED Blood Culture Media Position C50 CULTURE SOURCE # 1 IV start Right Arm Lactic Acid - 06/28/18 17:32 Lactic Acid 8.6 mg/dL 4.5-19.8 Blood Culture - 06/28/18 17:45 PRELIM CULTURE RESULTS Blood Culture Negative, No Growth Day 1 MEDIA PLATED Blood Culture Media Position C41 CULTURE SOURCE drawn from central line Right Arm Complete blood count (CBC) with automated white blood cell (WBC) differential - 08/12/18 13:55 Blood leukocytes automated count (number/volume) 19.6 10*3/uL 4.3-11.0 Blood erythrocytes automated count (number/volume) 4.52 10*6/uL 4.35-5.85 Venous blood hemoglobin measurement (mass/volume) 12.0 g/dL 11.5-16.0 Blood hematocrit (volume fraction) 38 % 35-52 Automated erythrocyte mean corpuscular volume 84 [foz_us] 80-99 Automated erythrocyte mean corpuscular hemoglobin (mass per erythrocyte) 27 pg 25-34 Automated erythrocyte mean corpuscular hemoglobin concentration measurement (mass/volume) 32 g/dL 32-36 Automated erythrocyte distribution width ratio 14.6 % 10.0- 14.5 Automated blood platelet count (count/volume) 420 10*3/uL 130-400 Automated blood platelet mean volume measurement 9.3 [foz_us] 7.4-10.4 Automated blood neutrophils/100 leukocytes 88 % 42-75 Automated blood lymphocytes/100 leukocytes 7 % 12-44 Blood monocytes/100 leukocytes 4 % 0-12 Automated blood eosinophils/100 leukocytes 0 % 0-10 Automated blood basophils/100 leukocytes 0 % 0-10 Blood neutrophils automated count (number/volume) 17.3 10*3 1.8-7.8 Blood lymphocytes automated count (number/volume) 1.3 10*3 1.0-4.0 Blood monocytes automated count (number/volume) 0.8 10*3 0.0- 1.0 Automated eosinophil count 0.0 10*3/uL 0.0-0.3 Automated blood basophil count (count/volume) 0.0 10*3/uL 0.0-0.1 Blood lactic acid measurement (moles/volume) - 08/12/18 13:55 Blood lactic acid measurement (moles/volume) 2.25 mmol/L 0.50- 2.00 PT panel in platelet poor plasma by coagulation assay - 08/12/18 13:55 Prothrombin time (PT) in platelet poor plasma by coagulation assay 14.5 s 12.2-14.7 INR in platelet poor plasma or blood by coagulation assay 1.1 0.8-1.4 Activated partial thromboplastin time (aPTT) in platelet poor plasma bycoagulation assay - 08/12/18 13:55 Activated partial thromboplastin time (aPTT) in platelet poor plasma bycoagulation assay 33 s 24-35 Blood manual differential performed detection - 08/12/18 13:55 Blood monocytes/100 leukocytes 5 % NRG Manual blood segmented neutrophils/100 leukocytes 74 % NRG Blood band neutrophils/100 leukocytes 12 % NRG Manual blood lymphocytes/100 leukocytes 8 % NRG Manual eosinophils/100 leukocytes in nose 0 % NRG Manual blood basophils/100 leukocytes 1 % NRG Comprehensive metabolic panel - 08/12/18 13:55 Serum or plasma sodium measurement (moles/volume) 137 mmol/L 135-145 Serum or plasma potassium measurement (moles/volume) 4.1 mmol/L 3.6-5.0 Serum or plasma chloride measurement (moles/volume) 97 mmol/L 98-107 Carbon dioxide 20 mmol/L 21-32 Serum or plasma anion gap determination (moles/volume) 20 mmol/L 5-14 Serum or plasma urea nitrogen measurement (mass/volume) 13 mg/dL 7-18 Serum or plasma creatinine measurement (mass/volume) 0.83 mg/dL 0.60-1.30 Serum or plasma urea nitrogen/creatinine mass ratio 16 NRG Serum or plasma creatinine measurement with calculation of estimated glomerular filtration rate > NRG Serum or plasma glucose measurement (mass/volume) 155 mg/dL 70-105 Serum or plasma calcium measurement (mass/volume) 9.5 mg/dL 8.5-10.1 Serum or plasma total bilirubin measurement (mass/volume) 0.6 mg/dL 0.1-1.0 Serum or plasma alkaline phosphatase measurement (enzymatic activity/volume) 93 U/L 40-136 Serum or plasma aspartate aminotransferase measurement (enzymatic activity/volume) 11 U/L 5-34 Serum or plasma alanine aminotransferase measurement (enzymatic activity/volume) 7 U/L 0-55 Serum or plasma protein measurement (mass/volume) 8.3 g/dL 6.4-8.2 Serum or plasma albumin measurement (mass/volume) 4.6 g/dL 3.2-4.5 Bacterial blood culture - 08/12/18 13:55 Bacterial blood culture NG NRG Bacterial blood culture - 08/12/18 14:25 Bacterial blood culture NG NRG Complete urinalysis with reflex to culture - 08/12/18 15:10 Urine color determination DARK YELLOW NRG Urine clarity determination SL CLOUDY NRG Urine pH measurement by test strip 5.5 5-9 Specific gravity of urine by test strip >= 1.016-1.022 Urine protein assay by test strip, semi-quantitative TRACE NEGATIVE Urine glucose detection by automated test strip NEGATIVE NEGATIVE Erythrocytes detection in urine sediment by light microscopy NEGATIVE NEGATIVE Urine ketones detection by automated test strip NEGATIVE NEGATIVE Urine nitrite detection by test strip NEGATIVE NEGATIVE Urine total bilirubin detection by test strip NEGATIVE NEGATIVE Urine urobilinogen measurement by automated test strip (mass/volume) 0.2 mg/dL NORMAL Urine leukocyte esterase detection by dipstick TRACE NEGATIVE Automated urine sediment erythrocyte count by microscopy (number/high power field) NONE NRG Automated urine sediment leukocyte count by microscopy (number/high power field) [HPF] NRG Bacteria detection in urine sediment by light microscopy FEW NRG Squamous epithelial cells detection in urine sediment by light microscopy 10-25 NRG Crystals detection in urine sediment by light microscopy NONE NRG Casts detection in urine sediment by light microscopy NONE NRG Mucus detection in urine sediment by light microscopy MODERATE NRG Complete urinalysis with reflex to culture CULTURE PENDING NRG Bacterial urine culture - 08/12/18 15:10 Bacterial urine culture SEE REPORT NRG COLONY COUNT . NRG Serum or plasma lactate measurement (moles/volume) - 08/12/18 16:15 Serum or plasma lactate measurement (moles/volume) 1.26 mmol/L 0.50-2.00 Serum or plasma C reactive protein measurement (mass/volume) - 08/21/18 16:03 Serum or plasma C reactive protein measurement (mass/volume) 9.66 mg/dL 0.00-0.50 Complete blood count (CBC) with automated white blood cell (WBC) differential - 08/21/18 16:10 Blood leukocytes automated count (number/volume) 8.9 10*3/uL 4.3-11.0 Blood erythrocytes automated count (number/volume) 3.68 10*6/uL 4.35-5.85 Venous blood hemoglobin measurement (mass/volume) 9.7 g/dL 11.5-16.0 Blood hematocrit (volume fraction) 31 % 35-52 Automated erythrocyte mean corpuscular volume 85 [foz_us] 80-99 Automated erythrocyte mean corpuscular hemoglobin (mass per erythrocyte) 26 pg 25-34 Automated erythrocyte mean corpuscular hemoglobin concentration measurement (mass/volume) 31 g/dL 32-36 Automated erythrocyte distribution width ratio 14.8 % 10.0- 14.5 Automated blood platelet count (count/volume) 403 10*3/uL 130-400 Automated blood platelet mean volume measurement 8.9 [foz_us] 7.4-10.4 Automated blood neutrophils/100 leukocytes 57 % 42-75 Automated blood lymphocytes/100 leukocytes 31 % 12-44 Blood monocytes/100 leukocytes 8 % 0-12 Automated blood eosinophils/100 leukocytes 3 % 0-10 Automated blood basophils/100 leukocytes 1 % 0-10 Blood neutrophils automated count (number/volume) 5.1 10*3 1.8-7.8 Blood lymphocytes automated count (number/volume) 2.7 10*3 1.0-4.0 Blood monocytes automated count (number/volume) 0.7 10*3 0.0- 1.0 Automated eosinophil count 0.2 10*3/uL 0.0-0.3 Automated blood basophil count (count/volume) 0.0 10*3/uL 0.0-0.1 Comprehensive metabolic panel - 08/21/18 16:10 Serum or plasma sodium measurement (moles/volume) 139 mmol/L 135-145 Serum or plasma potassium measurement (moles/volume) 4.4 mmol/L 3.6-5.0 Serum or plasma chloride measurement (moles/volume) 103 mmol/L 98-107 Carbon dioxide 28 mmol/L 21-32 Serum or plasma anion gap determination (moles/volume) 8 mmol/L 5-14 Serum or plasma urea nitrogen measurement (mass/volume) 11 mg/dL 7-18 Serum or plasma creatinine measurement (mass/volume) 0.57 mg/dL 0.60-1.30 Serum or plasma urea nitrogen/creatinine mass ratio 19 NRG Serum or plasma creatinine measurement with calculation of estimated glomerular filtration rate > NRG Serum or plasma glucose measurement (mass/volume) 124 mg/dL 70-105 Serum or plasma calcium measurement (mass/volume) 9.2 mg/dL 8.5-10.1 Serum or plasma total bilirubin measurement (mass/volume) 0.2 mg/dL 0.1-1.0 Serum or plasma alkaline phosphatase measurement (enzymatic activity/volume) 83 U/L 40-136 Serum or plasma aspartate aminotransferase measurement (enzymatic activity/volume) 9 U/L 5-34 Serum or plasma alanine aminotransferase measurement (enzymatic activity/volume) 9 U/L 0-55 Serum or plasma protein measurement (mass/volume) 7.2 g/dL 6.4-8.2 Serum or plasma albumin measurement (mass/volume) 4.0 g/dL 3.2-4.5 CALCIUM CORRECTED 9.2 mg/dL 8.5-10.1 Erythrocyte sedimentation rate by westergren method - 08/21/18 16:10 Erythrocyte sedimentation rate by westergren method 75 mm 0-20 Bacterial blood culture - 08/21/18 16:10 Bacterial blood culture NG NRG Blood lactic acid measurement (moles/volume) - 08/21/18 16:35 Blood lactic acid measurement (moles/volume) 0.54 mmol/L 0.50- 2.00 Bacterial blood culture - 08/21/18 16:35 Bacterial blood culture NG NRG Sed Rate - 08/23/18 14:11 Sed Rate 77 mm/hr 9-15 Blood CBC with ordered manual differential panel - 08/30/18 12:00 Blood leukocytes automated count (number/volume) 7.1 10*3/uL 4.3-11.0 Blood erythrocytes automated count (number/volume) 4.08 10*6/uL 4.35-5.85 Venous blood hemoglobin measurement (mass/volume) 10.3 g/dL 11.5-16.0 Blood hematocrit (volume fraction) 34 % 35-52 Automated erythrocyte mean corpuscular volume 84 [foz_us] 80-99 Automated erythrocyte mean corpuscular hemoglobin (mass per erythrocyte) 25 pg 25-34 Automated erythrocyte mean corpuscular hemoglobin concentration measurement (mass/volume) 30 g/dL 32-36 Automated erythrocyte distribution width ratio 14.6 % 10.0- 14.5 Automated blood platelet count (count/volume) 467 10*3/uL 130-400 Automated blood platelet mean volume measurement 9.3 [foz_us] 7.4-10.4 Automated blood neutrophils/100 leukocytes 47 % 42-75 Automated blood lymphocytes/100 leukocytes 42 % 12-44 Blood monocytes/100 leukocytes 11 % NRG Automated blood eosinophils/100 leukocytes 3 % 0-10 Automated blood basophils/100 leukocytes 1 % 0-10 Blood neutrophils automated count (number/volume) 3.3 10*3 1.8-7.8 Blood lymphocytes automated count (number/volume) 3.0 10*3 1.0-4.0 Blood monocytes automated count (number/volume) 0.5 10*3 0.0- 1.0 Automated eosinophil count 0.2 10*3/uL 0.0-0.3 Automated blood basophil count (count/volume) 0.1 10*3/uL 0.0-0.1 Manual blood segmented neutrophils/100 leukocytes 34 % NRG Blood band neutrophils/100 leukocytes 1 % NRG Manual blood lymphocytes/100 leukocytes 51 % NRG Manual eosinophils/100 leukocytes in nose 2 % NRG Manual blood basophils/100 leukocytes 1 % NRG Blood erythrocyte morphology finding identification NORMAL NRG Erythrocyte sedimentation rate by westergren method - 08/30/18 12:00 Erythrocyte sedimentation rate by westergren method 67 mm 0-20 Comprehensive metabolic panel - 08/30/18 12:00 Serum or plasma sodium measurement (moles/volume) 142 mmol/L 135-145 Serum or plasma potassium measurement (moles/volume) 3.6 mmol/L 3.6-5.0 Serum or plasma chloride measurement (moles/volume) 99 mmol/L 98-107 Carbon dioxide 22 mmol/L 21-32 Serum or plasma anion gap determination (moles/volume) 21 mmol/L 5-14 Serum or plasma urea nitrogen measurement (mass/volume) 8 mg/dL 7-18 Serum or plasma creatinine measurement (mass/volume) 0.57 mg/dL 0.60-1.30 Serum or plasma urea nitrogen/creatinine mass ratio 14 NRG Serum or plasma creatinine measurement with calculation of estimated glomerular filtration rate > NRG Serum or plasma glucose measurement (mass/volume) 60 mg/dL 70-105 Serum or plasma calcium measurement (mass/volume) 9.6 mg/dL 8.5-10.1 Serum or plasma total bilirubin measurement (mass/volume) 0.3 mg/dL 0.1-1.0 Serum or plasma alkaline phosphatase measurement (enzymatic activity/volume) 86 U/L 40-136 Serum or plasma aspartate aminotransferase measurement (enzymatic activity/volume) 14 U/L 5-34 Serum or plasma alanine aminotransferase measurement (enzymatic activity/volume) 5 U/L 0-55 Serum or plasma protein measurement (mass/volume) 7.8 g/dL 6.4-8.2 Serum or plasma albumin measurement (mass/volume) 4.0 g/dL 3.2-4.5 CALCIUM CORRECTED 9.6 mg/dL 8.5-10.1 Serum or plasma C reactive protein measurement (mass/volume) - 08/30/18 12:00 Serum or plasma C reactive protein measurement (mass/volume) 1.97 mg/dL 0.00-0.50 Complete blood count (CBC) with automated white blood cell (WBC) differential - 09/06/18 00:00 Blood leukocytes automated count (number/volume) 5.7 10*3/uL 4.3-11.0 Blood erythrocytes automated count (number/volume) 4.13 10*6/uL 4.35-5.85 Venous blood hemoglobin measurement (mass/volume) 10.3 g/dL 11.5-16.0 Blood hematocrit (volume fraction) 34 % 35-52 Automated erythrocyte mean corpuscular volume 81 [foz_us] 80-99 Automated erythrocyte mean corpuscular hemoglobin (mass per erythrocyte) 25 pg 25-34 Automated erythrocyte mean corpuscular hemoglobin concentration measurement (mass/volume) 31 g/dL 32-36 Automated erythrocyte distribution width ratio 14.8 % 10.0- 14.5 Automated blood platelet count (count/volume) 446 10*3/uL 130-400 Automated blood platelet mean volume measurement 9.6 [foz_us] 7.4-10.4 Automated blood neutrophils/100 leukocytes 48 % 42-75 Automated blood lymphocytes/100 leukocytes 41 % 12-44 Blood monocytes/100 leukocytes 8 % 0-12 Automated blood eosinophils/100 leukocytes 3 % 0-10 Automated blood basophils/100 leukocytes 1 % 0-10 Blood neutrophils automated count (number/volume) 2.7 10*3 1.8-7.8 Blood lymphocytes automated count (number/volume) 2.4 10*3 1.0-4.0 Blood monocytes automated count (number/volume) 0.4 10*3 0.0- 1.0 Automated eosinophil count 0.2 10*3/uL 0.0-0.3 Automated blood basophil count (count/volume) 0.1 10*3/uL 0.0-0.1 Comprehensive metabolic panel - 09/06/18 00:00 Serum or plasma sodium measurement (moles/volume) 140 mmol/L 135-145 Serum or plasma potassium measurement (moles/volume) 4.0 mmol/L 3.6-5.0 Serum or plasma chloride measurement (moles/volume) 101 mmol/L 98-107 Carbon dioxide 26 mmol/L 21-32 Serum or plasma anion gap determination (moles/volume) 13 mmol/L 5-14 Serum or plasma urea nitrogen measurement (mass/volume) 7 mg/dL 7-18 Serum or plasma creatinine measurement (mass/volume) 0.50 mg/dL 0.60-1.30 Serum or plasma urea nitrogen/creatinine mass ratio 14 NRG Serum or plasma creatinine measurement with calculation of estimated glomerular filtration rate > NRG Serum or plasma glucose measurement (mass/volume) 104 mg/dL 70-105 Serum or plasma calcium measurement (mass/volume) 9.4 mg/dL 8.5-10.1 Serum or plasma total bilirubin measurement (mass/volume) < mg/dL 0.1-1.0 Serum or plasma alkaline phosphatase measurement (enzymatic activity/volume) 86 U/L 40-136 Serum or plasma aspartate aminotransferase measurement (enzymatic activity/volume) 10 U/L 5-34 Serum or plasma alanine aminotransferase measurement (enzymatic activity/volume) 7 U/L 0-55 Serum or plasma protein measurement (mass/volume) 7.2 g/dL 6.4-8.2 Serum or plasma albumin measurement (mass/volume) 3.8 g/dL 3.2-4.5 CALCIUM CORRECTED 9.6 mg/dL 8.5-10.1 Automated blood complete blood count (hemogram) panel - 09/14/18 13:00 Blood leukocytes automated count (number/volume) 7.1 10*3/uL 4.3-11.0 Blood erythrocytes automated count (number/volume) 4.36 10*6/uL 4.35-5.85 Venous blood hemoglobin measurement (mass/volume) 10.8 g/dL 11.5-16.0 Blood hematocrit (volume fraction) 35 % 35-52 Automated erythrocyte mean corpuscular volume 80 [foz_us] 80-99 Automated erythrocyte mean corpuscular hemoglobin (mass per erythrocyte) 25 pg 25-34 Automated erythrocyte mean corpuscular hemoglobin concentration measurement (mass/volume) 31 g/dL 32-36 Automated erythrocyte distribution width ratio 15.9 % 10.0- 14.5 Automated blood platelet count (count/volume) 413 10*3/uL 130-400 Automated blood platelet mean volume measurement 9.4 [foz_us] 7.4-10.4 Comprehensive metabolic panel - 09/14/18 13:00 Serum or plasma sodium measurement (moles/volume) 142 mmol/L 135-145 Serum or plasma potassium measurement (moles/volume) 4.5 mmol/L 3.6-5.0 Serum or plasma chloride measurement (moles/volume) 105 mmol/L 98-107 Carbon dioxide 24 mmol/L 21-32 Serum or plasma anion gap determination (moles/volume) 13 mmol/L 5-14 Serum or plasma urea nitrogen measurement (mass/volume) 11 mg/dL 7-18 Serum or plasma creatinine measurement (mass/volume) 0.53 mg/dL 0.60-1.30 Serum or plasma urea nitrogen/creatinine mass ratio 21 NRG Serum or plasma creatinine measurement with calculation of estimated glomerular filtration rate > NRG Serum or plasma glucose measurement (mass/volume) 122 mg/dL 70-105 Serum or plasma calcium measurement (mass/volume) 9.2 mg/dL 8.5-10.1 Serum or plasma total bilirubin measurement (mass/volume) 0.3 mg/dL 0.1-1.0 Serum or plasma alkaline phosphatase measurement (enzymatic activity/volume) 107 U/L 40-136 Serum or plasma aspartate aminotransferase measurement (enzymatic activity/volume) 12 U/L 5-34 Serum or plasma alanine aminotransferase measurement (enzymatic activity/volume) 7 U/L 0-55 Serum or plasma protein measurement (mass/volume) 7.2 g/dL 6.4-8.2 Serum or plasma albumin measurement (mass/volume) 4.0 g/dL 3.2-4.5 CALCIUM CORRECTED 9.2 mg/dL 8.5-10.1 Complete blood count (CBC) with automated white blood cell (WBC) differential - 09/21/18 00:00 Blood leukocytes automated count (number/volume) 5.8 10*3/uL 4.3-11.0 Blood erythrocytes automated count (number/volume) 4.18 10*6/uL 4.35-5.85 Venous blood hemoglobin measurement (mass/volume) 10.3 g/dL 11.5-16.0 Blood hematocrit (volume fraction) 34 % 35-52 Automated erythrocyte mean corpuscular volume 81 [foz_us] 80-99 Automated erythrocyte mean corpuscular hemoglobin (mass per erythrocyte) 25 pg 25-34 Automated erythrocyte mean corpuscular hemoglobin concentration measurement (mass/volume) 30 g/dL 32-36 Automated erythrocyte distribution width ratio 16.5 % 10.0- 14.5 Automated blood platelet count (count/volume) 388 10*3/uL 130-400 Automated blood platelet mean volume measurement 9.6 [foz_us] 7.4-10.4 Automated blood neutrophils/100 leukocytes 52 % 42-75 Automated blood lymphocytes/100 leukocytes 38 % 12-44 Blood monocytes/100 leukocytes 8 % 0-12 Automated blood eosinophils/100 leukocytes 3 % 0-10 Automated blood basophils/100 leukocytes 1 % 0-10 Blood neutrophils automated count (number/volume) 3.0 10*3 1.8-7.8 Blood lymphocytes automated count (number/volume) 2.2 10*3 1.0-4.0 Blood monocytes automated count (number/volume) 0.4 10*3 0.0- 1.0 Automated eosinophil count 0.2 10*3/uL 0.0-0.3 Automated blood basophil count (count/volume) 0.0 10*3/uL 0.0-0.1 Comprehensive metabolic panel - 09/21/18 00:00 Serum or plasma sodium measurement (moles/volume) 140 mmol/L 135-145 Serum or plasma potassium measurement (moles/volume) 4.6 mmol/L 3.6-5.0 Serum or plasma chloride measurement (moles/volume) 102 mmol/L 98-107 Carbon dioxide 27 mmol/L 21-32 Serum or plasma anion gap determination (moles/volume) 11 mmol/L 5-14 Serum or plasma urea nitrogen measurement (mass/volume) 7 mg/dL 7-18 Serum or plasma creatinine measurement (mass/volume) 0.57 mg/dL 0.60-1.30 Serum or plasma urea nitrogen/creatinine mass ratio 12 NRG Serum or plasma creatinine measurement with calculation of estimated glomerular filtration rate > NRG Serum or plasma glucose measurement (mass/volume) 109 mg/dL 70-105 Serum or plasma calcium measurement (mass/volume) 9.2 mg/dL 8.5-10.1 Serum or plasma total bilirubin measurement (mass/volume) 0.2 mg/dL 0.1-1.0 Serum or plasma alkaline phosphatase measurement (enzymatic activity/volume) 98 U/L 40-136 Serum or plasma aspartate aminotransferase measurement (enzymatic activity/volume) 11 U/L 5-34 Serum or plasma alanine aminotransferase measurement (enzymatic activity/volume) 8 U/L 0-55 Serum or plasma protein measurement (mass/volume) 6.8 g/dL 6.4-8.2 Serum or plasma albumin measurement (mass/volume) 3.7 g/dL 3.2-4.5 CALCIUM CORRECTED 9.4 mg/dL 8.5-10.1 Comprehensive Metabolic Panel - 10/18/18 20:30 Albumin 4.2 g/dL 3.6-5.1 ALP 102 U/L 35-130 ALT 11 U/L 6-45 Anion Gap 13 6-14 AST 14 U/L 2-40 BUN 10 mg/dL 5-25 Calcium 9.7 mg/dL 8.3-10.4 Chloride 103 mmol/L 95-114 CO2 24 mEq/L 22-33 Creat 0.82 mg/dL 0.50-1.50 eGFR 81 mL/min/1.73m2 >59 Globulin 3.6 g/dL 2.3-3.5 Glucose 128 mg/dL 70-110 Osmo 282 280-295 Potassium 3.8 mmol/L 3.5-5.3 Sodium 136 mmol/L 134-148 TBil 0.4 mg/dL 0.2-1.2 TP 7.8 g/dL 6.0-8.3 Blood Culture - 10/18/18 22:50 FINAL CULTURE RESULTS Blood Culture POSITIVE, Growth Day 1 [id number] Coagulase Positive Staphylococci cultured. VINH/ID Follows MEDIA PLATED Setup at 23:06 on 10/18/[id number] Culture Media Position C49 CULTURE SOURCE drawn @ Left wrist [employer]ensi - 10/18/18 22:50 FINAL CULTURE RESULTS Staphylococcus aureus (Isolate 1) Ampicillin/Sulbactam <=8/4 Ampicillin <=2 Amoxicillin/K Clavulanate <=4/2 Ceftriaxone <=8 Clindamycin <=0.5 Cefoxitin Screen <=4 Ciprofloxacin <=1 Daptomycin <=0.5 Erythromycin <=0.5 Nitrofurantoin <=32 Gentamicin <=4 Gentamicin Synergy Screen N/R Inducible Clindamycin N/R Levofloxacin <=1 Linezolid 2 Moxifloxacin <=0.5 Oxacillin <=0.25 Penicillin 2 Rifampin <=1 Streptomycin Synergy N/R Synercid <=0.5 Trimethoprim/ Sulfamethoxazole <=0.5/9.5 Tetracycline <=4 Vancomycin 0.5 Lactic Acid - 10/18/18 22:55 Lactic Acid 27.4 mg/dL 4.5-19.8 Blood Culture - 10/18/18 22:55 FINAL CULTURE RESULTS Blood Culture POSITIVE, Growth Day 1 [id number] Coagulase Positive Staphylococci cultured. VINH/ID Follows MEDIA PLATED Setup at 23:07 on [id number] Culture Media Position C43 CULTURE SOURCE drawn @ Right Hand [employer] - 10/18/18 22:55 FINAL CULTURE RESULTS Staphylococcus aureus (Isolate 1) Ampicillin/Sulbactam <=8/4 Ampicillin <=2 Amoxicillin/K Clavulanate <=4/2 Ceftriaxone <=8 Clindamycin <=0.5 Cefoxitin Screen <=4 Ciprofloxacin <=1 Daptomycin <=0.5 Erythromycin <=0.5 Nitrofurantoin <=32 Gentamicin <=4 Gentamicin Synergy Screen N/R Inducible Clindamycin N/R Levofloxacin <=1 Linezolid 2 Moxifloxacin <=0.5 Oxacillin <=0.25 Penicillin 2 Rifampin <=1 Streptomycin Synergy N/R Synercid <=0.5 Trimethoprim/ Sulfamethoxazole <=0.5/9.5 Tetracycline <=4 Vancomycin 0.5 Complete blood count (CBC) with automated white blood cell (WBC) differential - 10/26/18 00:00 Blood leukocytes automated count (number/volume) 7.3 10*3/uL 4.3-11.0 Blood erythrocytes automated count (number/volume) 3.88 10*6/uL 4.35-5.85 Venous blood hemoglobin measurement (mass/volume) 9.4 g/dL 11.5-16.0 Blood hematocrit (volume fraction) 31 % 35-52 Automated erythrocyte mean corpuscular volume 81 [foz_us] 80-99 Automated erythrocyte mean corpuscular hemoglobin (mass per erythrocyte) 24 pg 25-34 Automated erythrocyte mean corpuscular hemoglobin concentration measurement (mass/volume) 30 g/dL 32-36 Automated erythrocyte distribution width ratio 18.7 % 10.0- 14.5 Automated blood platelet count (count/volume) 470 10*3/uL 130-400 Automated blood platelet mean volume measurement 9.4 [foz_us] 7.4-10.4 Automated blood neutrophils/100 leukocytes 55 % 42-75 Automated blood lymphocytes/100 leukocytes 36 % 12-44 Blood monocytes/100 leukocytes 6 % 0-12 Automated blood eosinophils/100 leukocytes 3 % 0-10 Automated blood basophils/100 leukocytes 0 % 0-10 Blood neutrophils automated count (number/volume) 4.0 10*3 1.8-7.8 Blood lymphocytes automated count (number/volume) 2.6 10*3 1.0-4.0 Blood monocytes automated count (number/volume) 0.5 10*3 0.0- 1.0 Automated eosinophil count 0.2 10*3/uL 0.0-0.3 Automated blood basophil count (count/volume) 0.0 10*3/uL 0.0-0.1 Erythrocyte sedimentation rate by westergren method - 10/26/18 00:00 Erythrocyte sedimentation rate by westergren method 63 mm 0-20 Comprehensive metabolic panel - 10/26/18 00:00 Serum or plasma sodium measurement (moles/volume) 142 mmol/L 135-145 Serum or plasma potassium measurement (moles/volume) 4.1 mmol/L 3.6-5.0 Serum or plasma chloride measurement (moles/volume) 102 mmol/L 98-107 Carbon dioxide 25 mmol/L 21-32 Serum or plasma anion gap determination (moles/volume) 15 mmol/L 5-14 Serum or plasma urea nitrogen measurement (mass/volume) 10 mg/dL 7-18 Serum or plasma creatinine measurement (mass/volume) 0.50 mg/dL 0.60-1.30 Serum or plasma urea nitrogen/creatinine mass ratio 20 NRG Serum or plasma creatinine measurement with calculation of estimated glomerular filtration rate > NRG Serum or plasma glucose measurement (mass/volume) 77 mg/dL 70-105 Serum or plasma calcium measurement (mass/volume) 8.9 mg/dL 8.5-10.1 Serum or plasma total bilirubin measurement (mass/volume) 0.2 mg/dL 0.1-1.0 Serum or plasma alkaline phosphatase measurement (enzymatic activity/volume) 68 U/L 40-136 Serum or plasma aspartate aminotransferase measurement (enzymatic activity/volume) 12 U/L 5-34 Serum or plasma alanine aminotransferase measurement (enzymatic activity/volume) 5 U/L 0-55 Serum or plasma protein measurement (mass/volume) 6.8 g/dL 6.4-8.2 Serum or plasma albumin measurement (mass/volume) 3.2 g/dL 3.2-4.5 CALCIUM CORRECTED 9.5 mg/dL 8.5-10.1 Serum or plasma C reactive protein measurement (mass/volume) - 10/26/18 00:00 Serum or plasma C reactive protein measurement (mass/volume) 2.87 mg/dL 0.00-0.50 Complete blood count (CBC) with automated white blood cell (WBC) differential - 11/01/18 00:00 Blood leukocytes automated count (number/volume) 7.1 10*3/uL 4.3-11.0 Blood erythrocytes automated count (number/volume) 4.56 10*6/uL 4.35-5.85 Venous blood hemoglobin measurement (mass/volume) 11.2 g/dL 11.5-16.0 Blood hematocrit (volume fraction) 37 % 35-52 Automated erythrocyte mean corpuscular volume 80 [foz_us] 80-99 Automated erythrocyte mean corpuscular hemoglobin (mass per erythrocyte) 25 pg 25-34 Automated erythrocyte mean corpuscular hemoglobin concentration measurement (mass/volume) 31 g/dL 32-36 Automated erythrocyte distribution width ratio 19.5 % 10.0- 14.5 Automated blood platelet count (count/volume) 529 10*3/uL 130-400 Automated blood platelet mean volume measurement 9.4 [foz_us] 7.4-10.4 Automated blood neutrophils/100 leukocytes 51 % 42-75 Automated blood lymphocytes/100 leukocytes 37 % 12-44 Blood monocytes/100 leukocytes 8 % 0-12 Automated blood eosinophils/100 leukocytes 3 % 0-10 Automated blood basophils/100 leukocytes 1 % 0-10 Blood neutrophils automated count (number/volume) 3.6 10*3 1.8-7.8 Blood lymphocytes automated count (number/volume) 2.6 10*3 1.0-4.0 Blood monocytes automated count (number/volume) 0.6 10*3 0.0- 1.0 Automated eosinophil count 0.2 10*3/uL 0.0-0.3 Automated blood basophil count (count/volume) 0.1 10*3/uL 0.0-0.1 Erythrocyte sedimentation rate by westergren method - 11/01/18 00:00 Erythrocyte sedimentation rate by westergren method 54 mm 0-20 Comprehensive metabolic panel - 11/01/18 00:00 Serum or plasma sodium measurement (moles/volume) 140 mmol/L 135-145 Serum or plasma potassium measurement (moles/volume) 4.2 mmol/L 3.6-5.0 Serum or plasma chloride measurement (moles/volume) 101 mmol/L 98-107 Carbon dioxide 24 mmol/L 21-32 Serum or plasma anion gap determination (moles/volume) 15 mmol/L 5-14 Serum or plasma urea nitrogen measurement (mass/volume) 13 mg/dL 7-18 Serum or plasma creatinine measurement (mass/volume) 0.61 mg/dL 0.60-1.30 Serum or plasma urea nitrogen/creatinine mass ratio 21 NRG Serum or plasma creatinine measurement with calculation of estimated glomerular filtration rate > NRG Serum or plasma glucose measurement (mass/volume) 104 mg/dL 70-105 Serum or plasma calcium measurement (mass/volume) 9.6 mg/dL 8.5-10.1 Serum or plasma total bilirubin measurement (mass/volume) 0.3 mg/dL 0.1-1.0 Serum or plasma alkaline phosphatase measurement (enzymatic activity/volume) 98 U/L 40-136 Serum or plasma aspartate aminotransferase measurement (enzymatic activity/volume) 15 U/L 5-34 Serum or plasma alanine aminotransferase measurement (enzymatic activity/volume) 10 U/L 0-55 Serum or plasma protein measurement (mass/volume) 8.0 g/dL 6.4-8.2 Serum or plasma albumin measurement (mass/volume) 4.2 g/dL 3.2-4.5 CALCIUM CORRECTED 9.4 mg/dL 8.5-10.1 Serum or plasma C reactive protein measurement (mass/volume) - 11/01/18 00:00 Serum or plasma C reactive protein measurement (mass/volume) 0.66 mg/dL 0.00-0.50 Comprehensive metabolic panel - 11/09/18 00:00 Serum or plasma sodium measurement (moles/volume) 138 mmol/L 135-145 Serum or plasma potassium measurement (moles/volume) 3.8 mmol/L 3.6-5.0 Serum or plasma chloride measurement (moles/volume) 100 mmol/L 98-107 Carbon dioxide 24 mmol/L 21-32 Serum or plasma anion gap determination (moles/volume) 14 mmol/L 5-14 Serum or plasma urea nitrogen measurement (mass/volume) 10 mg/dL 7-18 Serum or plasma creatinine measurement (mass/volume) 0.63 mg/dL 0.60-1.30 Serum or plasma urea nitrogen/creatinine mass ratio 16 NRG Serum or plasma creatinine measurement with calculation of estimated glomerular filtration rate > NRG Serum or plasma glucose measurement (mass/volume) 96 mg/dL 70-105 Serum or plasma calcium measurement (mass/volume) 9.0 mg/dL 8.5-10.1 Serum or plasma total bilirubin measurement (mass/volume) 0.3 mg/dL 0.1-1.0 Serum or plasma alkaline phosphatase measurement (enzymatic activity/volume) 93 U/L 40-136 Serum or plasma aspartate aminotransferase measurement (enzymatic activity/volume) 12 U/L 5-34 Serum or plasma alanine aminotransferase measurement (enzymatic activity/volume) 7 U/L 0-55 Serum or plasma protein measurement (mass/volume) 7.5 g/dL 6.4-8.2 Serum or plasma albumin measurement (mass/volume) 4.1 g/dL 3.2-4.5 CALCIUM CORRECTED 8.9 mg/dL 8.5-10.1 Complete blood count (CBC) with automated white blood cell (WBC) differential - 11/09/18 00:00 Blood leukocytes automated count (number/volume) 7.0 10*3/uL 4.3-11.0 Blood erythrocytes automated count (number/volume) 4.45 10*6/uL 4.35-5.85 Venous blood hemoglobin measurement (mass/volume) 11.1 g/dL 11.5-16.0 Blood hematocrit (volume fraction) 36 % 35-52 Automated erythrocyte mean corpuscular volume 80 [foz_us] 80-99 Automated erythrocyte mean corpuscular hemoglobin (mass per erythrocyte) 25 pg 25-34 Automated erythrocyte mean corpuscular hemoglobin concentration measurement (mass/volume) 31 g/dL 32-36 Automated erythrocyte distribution width ratio 19.3 % 10.0- 14.5 Automated blood platelet count (count/volume) 345 10*3/uL 130-400 Automated blood platelet mean volume measurement 9.8 [foz_us] 7.4-10.4 Automated blood neutrophils/100 leukocytes 42 % 42-75 Automated blood lymphocytes/100 leukocytes 46 % 12-44 Blood monocytes/100 leukocytes 8 % 0-12 Automated blood eosinophils/100 leukocytes 3 % 0-10 Automated blood basophils/100 leukocytes 1 % 0-10 Blood neutrophils automated count (number/volume) 3.0 10*3 1.8-7.8 Blood lymphocytes automated count (number/volume) 3.3 10*3 1.0-4.0 Blood monocytes automated count (number/volume) 0.5 10*3 0.0- 1.0 Automated eosinophil count 0.2 10*3/uL 0.0-0.3 Automated blood basophil count (count/volume) 0.1 10*3/uL 0.0-0.1 Erythrocyte sedimentation rate by westergren method - 11/09/18 00:00 Erythrocyte sedimentation rate by westergren method 37 mm 0-20 Serum or plasma C reactive protein measurement (mass/volume) - 11/09/18 00:00 Serum or plasma C reactive protein measurement (mass/volume) 0.30 mg/dL 0.00-0.50 Complete blood count (CBC) with automated white blood cell (WBC) differential - 11/16/18 14:15 Blood leukocytes automated count (number/volume) 8.3 10*3/uL 4.3-11.0 Blood erythrocytes automated count (number/volume) 4.66 10*6/uL 4.35-5.85 Venous blood hemoglobin measurement (mass/volume) 11.7 g/dL 11.5-16.0 Blood hematocrit (volume fraction) 38 % 35-52 Automated erythrocyte mean corpuscular volume 82 [foz_us] 80-99 Automated erythrocyte mean corpuscular hemoglobin (mass per erythrocyte) 25 pg 25-34 Automated erythrocyte mean corpuscular hemoglobin concentration measurement (mass/volume) 31 g/dL 32-36 Automated erythrocyte distribution width ratio 20.5 % 10.0- 14.5 Automated blood platelet count (count/volume) 346 10*3/uL 130-400 Automated blood platelet mean volume measurement 9.9 [foz_us] 7.4-10.4 Automated blood neutrophils/100 leukocytes 48 % 42-75 Automated blood lymphocytes/100 leukocytes 40 % 12-44 Blood monocytes/100 leukocytes 7 % 0-12 Automated blood eosinophils/100 leukocytes 4 % 0-10 Automated blood basophils/100 leukocytes 1 % 0-10 Blood neutrophils automated count (number/volume) 4.0 10*3 1.8-7.8 Blood lymphocytes automated count (number/volume) 3.3 10*3 1.0-4.0 Blood monocytes automated count (number/volume) 0.6 10*3 0.0- 1.0 Automated eosinophil count 0.4 10*3/uL 0.0-0.3 Automated blood basophil count (count/volume) 0.0 10*3/uL 0.0-0.1 Comprehensive metabolic panel - 11/16/18 14:15 Serum or plasma sodium measurement (moles/volume) 143 mmol/L 135-145 Serum or plasma potassium measurement (moles/volume) 4.0 mmol/L 3.6-5.0 Serum or plasma chloride measurement (moles/volume) 104 mmol/L 98-107 Carbon dioxide 23 mmol/L 21-32 Serum or plasma anion gap determination (moles/volume) 16 mmol/L 5-14 Serum or plasma urea nitrogen measurement (mass/volume) 9 mg/dL 7-18 Serum or plasma creatinine measurement (mass/volume) 0.66 mg/dL 0.60-1.30 Serum or plasma urea nitrogen/creatinine mass ratio 14 NRG Serum or plasma creatinine measurement with calculation of estimated glomerular filtration rate > NRG Serum or plasma glucose measurement (mass/volume) 92 mg/dL 70-105 Serum or plasma calcium measurement (mass/volume) 9.3 mg/dL 8.5-10.1 Serum or plasma total bilirubin measurement (mass/volume) 0.2 mg/dL 0.1-1.0 Serum or plasma alkaline phosphatase measurement (enzymatic activity/volume) 102 U/L 40-136 Serum or plasma aspartate aminotransferase measurement (enzymatic activity/volume) 18 U/L 5-34 Serum or plasma alanine aminotransferase measurement (enzymatic activity/volume) 10 U/L 0-55 Serum or plasma protein measurement (mass/volume) 7.9 g/dL 6.4-8.2 Serum or plasma albumin measurement (mass/volume) 4.5 g/dL 3.2-4.5 CALCIUM CORRECTED 8.9 mg/dL 8.5-10.1 Erythrocyte sedimentation rate by westergren method - 11/16/18 14:15 Erythrocyte sedimentation rate by westergren method 9 mm 0- 20 Serum or plasma C reactive protein measurement (mass/volume) - 11/16/18 14:15 Serum or plasma C reactive protein measurement (mass/volume) 0.43 mg/dL 0.00-0.50 Complete urinalysis with reflex to culture - 12/01/18 12:55 Urine color determination YELLOW NRG Urine clarity determination CLEAR NRG Urine pH measurement by test strip 7.0 5-9 Specific gravity of urine by test strip 1.025 1.016-1.022 Urine protein assay by test strip, semi-quantitative NEGATIVE NEGATIVE Urine glucose detection by automated test strip NEGATIVE NEGATIVE Erythrocytes detection in urine sediment by light microscopy NEGATIVE NEGATIVE Urine ketones detection by automated test strip NEGATIVE NEGATIVE Urine nitrite detection by test strip NEGATIVE NEGATIVE Urine total bilirubin detection by test strip NGE NEGATIVE Urine urobilinogen measurement by automated test strip (mass/volume) 0.2 mg/dL NORMAL Urine leukocyte esterase detection by dipstick NEGATIVE NEGATIVE Automated urine sediment erythrocyte count by microscopy (number/high power field) NONE NRG Automated urine sediment leukocyte count by microscopy (number/high power field) NONE NRG Bacteria detection in urine sediment by light microscopy NONE NRG Squamous epithelial cells detection in urine sediment by light microscopy 10-25 NRG Crystals detection in urine sediment by light microscopy NONE NRG Casts detection in urine sediment by light microscopy NONE NRG Mucus detection in urine sediment by light microscopy SMALL NRG Complete urinalysis with reflex to culture NO NRG Complete blood count (CBC) with automated white blood cell (WBC) differential - 12/01/18 13:45 Blood leukocytes automated count (number/volume) 6.3 10*3/uL 4.3-11.0 Blood erythrocytes automated count (number/volume) 4.55 10*6/uL 4.35-5.85 Venous blood hemoglobin measurement (mass/volume) 11.9 g/dL 11.5-16.0 Blood hematocrit (volume fraction) 38 % 35-52 Automated erythrocyte mean corpuscular volume 82 [foz_us] 80-99 Automated erythrocyte mean corpuscular hemoglobin (mass per erythrocyte) 26 pg 25-34 Automated erythrocyte mean corpuscular hemoglobin concentration measurement (mass/volume) 32 g/dL 32-36 Automated erythrocyte distribution width ratio 19.7 % 10.0- 14.5 Automated blood platelet count (count/volume) 358 10*3/uL 130-400 Automated blood platelet mean volume measurement 9.6 [foz_us] 7.4-10.4 Automated blood neutrophils/100 leukocytes 48 % 42-75 Automated blood lymphocytes/100 leukocytes 40 % 12-44 Blood monocytes/100 leukocytes 8 % 0-12 Automated blood eosinophils/100 leukocytes 3 % 0-10 Automated blood basophils/100 leukocytes 1 % 0-10 Blood neutrophils automated count (number/volume) 3.0 10*3 1.8-7.8 Blood lymphocytes automated count (number/volume) 2.5 10*3 1.0-4.0 Blood monocytes automated count (number/volume) 0.5 10*3 0.0- 1.0 Automated eosinophil count 0.2 10*3/uL 0.0-0.3 Automated blood basophil count (count/volume) 0.0 10*3/uL 0.0-0.1 Blood lactic acid measurement (moles/volume) - 12/01/18 13:45 Blood lactic acid measurement (moles/volume) 0.79 mmol/L 0.50- 2.00 Comprehensive metabolic panel - 12/01/18 13:45 Serum or plasma sodium measurement (moles/volume) 139 mmol/L 135-145 Serum or plasma potassium measurement (moles/volume) 4.3 mmol/L 3.6-5.0 Serum or plasma chloride measurement (moles/volume) 100 mmol/L 98-107 Carbon dioxide 27 mmol/L 21-32 Serum or plasma anion gap determination (moles/volume) 12 mmol/L 5-14 Serum or plasma urea nitrogen measurement (mass/volume) 9 mg/dL 7-18 Serum or plasma creatinine measurement (mass/volume) 0.69 mg/dL 0.60-1.30 Serum or plasma urea nitrogen/creatinine mass ratio 13 NRG Serum or plasma creatinine measurement with calculation of estimated glomerular filtration rate > NRG Serum or plasma glucose measurement (mass/volume) 97 mg/dL 70-105 Serum or plasma calcium measurement (mass/volume) 9.3 mg/dL 8.5-10.1 Serum or plasma total bilirubin measurement (mass/volume) 0.3 mg/dL 0.1-1.0 Serum or plasma alkaline phosphatase measurement (enzymatic activity/volume) 93 U/L 40-136 Serum or plasma aspartate aminotransferase measurement (enzymatic activity/volume) 13 U/L 5-34 Serum or plasma alanine aminotransferase measurement (enzymatic activity/volume) 8 U/L 0-55 Serum or plasma protein measurement (mass/volume) 7.5 g/dL 6.4-8.2 Serum or plasma albumin measurement (mass/volume) 4.3 g/dL 3.2-4.5 CALCIUM CORRECTED 9.1 mg/dL 8.5-10.1 Erythrocyte sedimentation rate by westergren method - 12/01/18 13:45 Erythrocyte sedimentation rate by westergren method 8 mm 0- 20 Serum or plasma C reactive protein measurement (mass/volume) - 12/01/18 13:45 Serum or plasma C reactive protein measurement (mass/volume) 0.26 mg/dL 0.00-0.50 Bacterial blood culture - 12/01/18 13:45 Bacterial blood culture NG NRG Bacterial blood culture - 12/01/18 14:52 Bacterial blood culture NG NRG Gram stain microscopy - 12/01/18 15:05 Gram stain microscopy MANY GRAM POSITIVE COCCI IN CLUSTERS NRG Blood lactic acid measurement (moles/volume) - 12/03/18 11:25 Blood lactic acid measurement (moles/volume) 0.68 mmol/L 0.50- 2.00 Whole blood basic metabolic panel - 12/03/18 11:25 Serum or plasma sodium measurement (moles/volume) 139 mmol/L 135-145 Serum or plasma potassium measurement (moles/volume) 4.1 mmol/L 3.6-5.0 Serum or plasma chloride measurement (moles/volume) 100 mmol/L 98-107 Carbon dioxide 25 mmol/L 21-32 Serum or plasma anion gap determination (moles/volume) 14 mmol/L 5-14 Serum or plasma urea nitrogen measurement (mass/volume) 11 mg/dL 7-18 Serum or plasma creatinine measurement (mass/volume) 0.63 mg/dL 0.60-1.30 Serum or plasma urea nitrogen/creatinine mass ratio 17 NRG Serum or plasma creatinine measurement with calculation of estimated glomerular filtration rate > NRG Serum or plasma glucose measurement (mass/volume) 103 mg/dL 70-105 Serum or plasma calcium measurement (mass/volume) 9.3 mg/dL 8.5-10.1 Blood CBC with ordered manual differential panel - 12/03/18 11:25 Blood leukocytes automated count (number/volume) 7.6 10*3/uL 4.3-11.0 Blood erythrocytes automated count (number/volume) 4.65 10*6/uL 4.35-5.85 Venous blood hemoglobin measurement (mass/volume) 12.1 g/dL 11.5-16.0 Blood hematocrit (volume fraction) 38 % 35-52 Automated erythrocyte mean corpuscular volume 81 [foz_us] 80-99 Automated erythrocyte mean corpuscular hemoglobin (mass per erythrocyte) 26 pg 25-34 Automated erythrocyte mean corpuscular hemoglobin concentration measurement (mass/volume) 32 g/dL 32-36 Automated erythrocyte distribution width ratio 19.2 % 10.0- 14.5 Automated blood platelet count (count/volume) 352 10*3/uL 130-400 Automated blood platelet mean volume measurement 9.4 [foz_us] 7.4-10.4 Automated blood neutrophils/100 leukocytes 58 % 42-75 Automated blood lymphocytes/100 leukocytes 30 % 12-44 Blood monocytes/100 leukocytes 9 % NRG Automated blood eosinophils/100 leukocytes 3 % 0-10 Automated blood basophils/100 leukocytes 1 % 0-10 Blood neutrophils automated count (number/volume) 4.4 10*3 1.8-7.8 Blood lymphocytes automated count (number/volume) 2.3 10*3 1.0-4.0 Blood monocytes automated count (number/volume) 0.6 10*3 0.0- 1.0 Automated eosinophil count 0.2 10*3/uL 0.0-0.3 Automated blood basophil count (count/volume) 0.0 10*3/uL 0.0-0.1 Manual blood segmented neutrophils/100 leukocytes 53 % NRG Blood band neutrophils/100 leukocytes 9 % NRG Manual blood lymphocytes/100 leukocytes 27 % NRG Manual eosinophils/100 leukocytes in nose 2 % NRG Blood hypochromia detection by light microscopy 1+ NRG Blood microcytes detection by light microscopy 2+ NRG Erythrocyte sedimentation rate by westergren method - 12/03/18 11:25 Erythrocyte sedimentation rate by westergren method 26 mm 0-20 Serum or plasma C reactive protein measurement (mass/volume) - 12/03/18 11:25 Serum or plasma C reactive protein measurement (mass/volume) 0.32 mg/dL 0.00-0.50 Encounters ACCT No. Visit Date/Time Discharge Status Pt. Type Provider Facility Loc./Unit Complaint [id number] 11/26/2018 13:42:00 11/26/2018 15:29:[address] [facility] [place] ER [id number] 10/18/2018 19:57:00 10/19/2018 00:33:00 [id number] 10/01/2018 17:58:00 10/01/2018 19:04:[address] [facility] [place] ER [id number] 08/23/2018 13:33:00 08/23/2018 15:27:[address] [facility] [place] ER [id number] 06/28/2018 15:54:00 06/28/2018 21:44:00 DIS Outpatient Aditi [facility] ER [id number] 06/22/2018 11:34:00 06/22/2018 13:45:00 DIS Outpatient Aditi [facility] ER [id number] 06/19/2018 15:42:00 06/19/2018 18:14:00 DIS Outpatient LEIGHANN MERAZ [id number] 06/12/2018 12:35:00 06/12/2018 15:49:00 DIS Outpatient Aditi [facility] ER [id number] 02/03/2018 13:19:00 02/03/2018 15:27:00 DIS Outpatient [facility] ER [id number] 02/03/2018 14:38:38 Document Registration [id number] 12/03/2018 11:05:00 12/03/2018 13:40:00 DIS Emergency SANDRA HICKMAN DO [facility] ER FS LT HIP PAIN REDNESS [id number] 12/01/2018 12:19:00 12/01/2018 15:30:00 DIS Emergency JAVIER HICKMAN DO [facility] ER FS LT HIP PAIN [id number] 11/16/2018 15:06:00 11/16/2018 23:59:59 CLS Outpatient ABRIL MARTINEZ MD [facility] LAB FS A41.01 T81.41XA [id number] 11/09/2018 13:18:00 11/09/2018 23:59:59 CLS Outpatient ABRIL MARTINEZ MD [facility] LAB FS [employer] USE ANTIBIOTICS [id number] 11/01/2018 11:06:00 11/01/2018 23:59:59 CLS Outpatient KLAUS FERRER MD [facility] LAB FS IV ANTIBOTICS USP USE [id number] 10/26/2018 12:37:00 10/26/2018 23:59:59 CLS Outpatient KLAUS FERRER MD [facility] LAB FS USP USE ANTIBIOTICS [id number] 09/14/2018 13:25:00 09/14/2018 23:59:59 CLS Outpatient CARA NAGY MD [facility] Z51.81 Z79.2 [id number] 08/30/2018 17:46:00 08/30/2018 23:59:59 [facility] Outpatient NABIL GALICIA, KLAUS Hernandez [facility] [id number] 08/21/2018 14:33:00 08/21/2018 19:53:00 DIS Emergency SHANTHI GALICIA, AJ Lang [facility] ER FS HIP PAIN [id number] 08/12/2018 13:41:00 08/13/2018 00:08:00 DIS Emergency ANETTE ANGELO DO [facility] ER FS WOUND CHECK [id number] 09/21/2018 12:32:00 Document Registration
== END 2018-12-03 13:40 | disposition home or self-care (01) ==
LOC: EDUNIT# 11:04 → ER FS 11:05
DX: M25.552 Pain in left hip (principal); Z96.642 Presence of left artificial hip joint; Z88.2 Allergy status to sulfonamides; Z88.1 Allergy status to other antibiotic agents; Z77.22 Contact with and (suspected) exposure to environmental tobacco smoke (acute) (chronic); Z90.49 Acquired absence of other specified parts of digestive tract
CPT/HCPCS: 36415; 73701; 80048; 83605; 85007; 85027; 85652; 86141; 87040; 96374; 96375

== ENCOUNTER 2018-12-06 17:59 | Emergency (ER) | payer MEDICAID ==
[~2018-12-06] VITALS: Ht 162.6 cm; Wt 88.5 kg
[~2018-12-06 17:59] MED LIST changes: +CLIN300C11 PO; +OXYC-199 PO
--- NOTE | 2018-12-06 19:17 | ED Lower Extremity ---
General Chief Complaint: Skin/Wound Problems Stated Complaint: HIP PAIN Nursing Triage Note: Patient c/o left hip pain due to infection of her surgical wound and nausea. States that she was seen in the clinic and sent to the ED for further evaluation. Reports that the clinic told her that she needed to be admitted to [place] for IV antibiotics. Nursing Sepsis Screen: No Definite Risk Source: patient, EMS notes reviewed, old records Exam Limitations: no limitations History of Present Illness Date Seen by Provider: Dec 06, 2018 Time Seen by Provider: 18:27 Initial Comments Patient represents here to the ED for the 3rd time in the last week c/ c/o worsening left hip pain and drainage p/ undergoing left hip surgery back in May for left hip dysplasia @ [facility]. Apparently develop infectious post op infection in the hip and was placed on IV antibiotics until approximately 2-2 1/2 weeks ago when the course was completed and her PICC was removed. Shortly there after her symptoms started to return leading to her being seen her on 12/01 and 12/03. C&S of her incision did return on 12/03 c/ Methicillin-sensitive Staph Aureus. She was started on Clindamycin @ that time based on the sensitive and her drug allergies. On 12/04, the wound culture also grew out Acinetobacter Baumannii which appears not to be sensitive to Clindamycin based on the sensitivity report. Saw her PCP today and was referred here once again for re-evaluation and possible referral for inpatient admission for IV antibiotic. Onset: other (see above) Severity: moderate (11/24) Pain/Injury Location: left hip Method of Injury: other (post op infection) Modifying Factors: Worse With Movement; Improves With Rest Allergies and Home Medications Allergies Coded Allergies: Sulfa (Sulfonamide Antibiotics) (Verified Allergy, Unknown, 08/21/18) ciprofloxacin (Verified Allergy, Unknown, 08/12/18) levofloxacin (Verified Allergy, Unknown, 08/12/18) vancomycin (Verified Allergy, Unknown, 08/12/18) Uncoded Allergies: SULFA (Allergy, Unknown, 08/12/18) Home Medications Clindamycin HCl 300 Mg Capsule, 300 MG PO Q6H Prescribed by: SANDRA HICKMAN on 12/03/18 1331 Hydrocodone Bit/Acetaminophen 1 Ea Tablet, 1 EACH PO Q6H Prescribed by: JAVIER HICKMAN on 12/01/18 1530 Oxycodone HCl/Acetaminophen 1 Each Tablet, 1 TAB PO Q6H PRN for PAIN-MODERATE Prescribed by: SANDRA HICKMAN on 12/03/18 1331 Patient Home Medication List Home Medication List Reviewed: Yes Review of Systems Constitutional: see HPI Gastrointestinal: see HPI, nausea : No Musculoskeletal: see HPI, other (left hip pain) Skin: see HPI, other (left hip incision drainage) All Other Systems Reviewed Negative Unless Noted: Yes (Negative excepted noted.) Past Tqbptkq-Aloobe-Hqaujf Hx Patient Social History Alcohol Use: Denies Use Recreational Drug Use: No Type Used: Cigarettes 2nd Hand Smoke Exposure: Yes Recent Foreign Travel: No Contact w/Someone Who Travel: No Recent Infectious Disease Expo: No Recent Hopitalizations: No Physical Abuse: No Sexual Abuse: No Mistreated: No Fear: No Seasonal Allergies Seasonal Allergies: No Past Medical History Surgeries: Yes (hip, bi-lat knee, left hip dysplasia repair) Appendectomy, Section, Gallbladder, Orthopedic Respiratory: No Cardiac: No Neurological: No Genitourinary: No Gastrointestinal: No Musculoskeletal: No Endocrine: No HEENT: No Cancer: No Psychosocial: No Integumentary: No Blood Disorders: No Physical Exam Vital Signs Vital Signs - First Documented 12/06/18 18:10 Temp 98.6 Pulse 92 Resp 20 B/P (MAP) 114/81 (92) Pulse Ox 100 O2 Delivery Room Air Capillary Refill : Less Than 3 Seconds Height, Weight, BMI Height: 5'4.00" Weight: 195lbs. oz. 88.346644jr; BMI Method:Stated General Appearance: WD/WN, no apparent distress, obese Cardiovascular: regular rate, rhythm Respiratory: no respiratory distress Hips: left hip pain, left hip soft tissue tenderness, left hip swelling Neurologic/Psychiatric: no motor/sensory deficits, alert, normal mood/affect, oriented x 3 Skin: warm/dry Progress/Results/Core Measures Results/Orders My Orders Orders - JAVIER HICKMAN DO Ed Iv/Invasive Line Start (12/06/18 19:17) Ondansetron Injection (Zofran Injectio (12/06/18 19:30) Diphenhydramine Injection (Benadryl Inje (12/06/18 19:30) Morphine Injection (Morphine Injection (12/06/18 19:28) Vital Signs/I&O 12/06/18 18:10 Temp 98.6 Pulse 92 Resp 20 B/P (MAP) 114/81 (92) Pulse Ox 100 O2 Delivery Room Air Blood Pressure Mean: 92 Progress Progress Note : Progress Note Has had 2 recent pretty complete work ups on 12/01 & 12/03. Feel strongly she needs to return to [facility] for further evaluation and treatment. ID might be helpful. Departure Impression Primary Impression: Left hip pain Additional Impression: Left hip postoperative wound infection Disposition: 02 XFER SHT-TRM HOSP Condition: Stable Transfer Time Spoke to Accepting Phy: 19:07 Transfer Progress Notes Discussed patient c/ the [facility] applications coordinator RN and she discussed c/ Dr. Hyatt who has accepted the patient in transfer for admission. Transfer Facility: [facility] Method of Transfer: EMS Departure-Patient Inst. Referrals: BENJAMÍN GIVENS MD (PCP/Family) Primary Care Physician JAVIER HICKMAN DO Dec 06, 2018 19:17
[2018-12-06] MEDS ORDERED: morphine INJ 10 MG/ML 1ML (SYR OR VIAL) IVP STA (19:28)
[2018-12-06] MEDS ORDERED: diphenhydrAMINE 50 MG/ML INJ (BENADRYL) IVP ONE (19:30)
[2018-12-06] MEDS ORDERED: ONDANSETRON 4 MG/2 ML (SDV) Z0FRAN IVP ONE (19:30)
[2018-12-06 19:35] VITALS: BP 118/61
[2018-12-06 20:05] VITALS: BP 117/68
--- OUTSIDE RECORDS SUMMARY | 2018-12-07 01:28 | XMS REPORT | Continuity of Care Document ---
[...] OTHER Yes VANCOMYCIN UNKNOWN UNKNOWN Yes ciprofloxacin [id number] Drug Allergy Unknown N/A 08/12/2018 Yes levofloxacin [id number] Drug Allergy Unknown N/A 08/12/2018 Yes No Known Drug Allergies [id number] Drug Allergy Unknown N/A 08/12/2018 Yes SULFA SULFA Unknown N/A 08/12/2018 Yes vancomycin [id number] Drug Allergy Unknown N/A 08/12/2018 Yes Sulfa (Sulfonamide Antibiotics) [id number] Drug Allergy Unknown N/A 08/21/2018 Medications Medication [...] MAKI MD Ot Z88.8 ALLERGY STATUS TO [facility] DRUG/MEDS/BIOL SUB 08/25/2018 AJ MAKI MD Ot [...] MON 09/07/2018 CARA NAGY MD, Ot Z79.2 SERVICE ORDER DISPATCHER (CURRENT) USE OF ANTIBIOTICS 09/07/2018 CARA NAGY MD, Ot Z51.81 ENCOUNTER FOR THERAPEUTIC DRUG LEVEL MON 09/07/2018 CARA NAGY MD, Ot Z79.2 [facility] (CURRENT) USE OF ANTIBIOTICS 09/16/2018 KLAUS FERRER MD, Ot T81.49XA INFECTION FOLLOWING A PROCEDURE, OTHER S 09/23/2018 Ot Z51.81 ENCOUNTER FOR THERAPEUTIC DRUG LEVEL MON 09/23/2018 Ot Z79.2 [facility] (CURRENT) USE OF ANTIBIOTICS 10/01/2018 Jeovany Pennington 924.01 CONTUSION OF HIP 10/01/2018 Jeovany Pennington S70.02XA CONTUSION OF LEFT HIP, INITIAL ENCOUNTER 10/19/2018 HARLEY NEVES W 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, UNSPECIFIED 10/19/2018 HARLEY NEVES A41.2 SEPSIS DUE TO UNSPECIFIED STAPHYLOCOCCUS 10/28/2018 KLAUS FERRER MD Ot Z51.81 ENCOUNTER FOR THERAPEUTIC DRUG LEVEL MON 10/28/2018 KLAUS FERRER MD, Ot Z79.2 SERVICE ORDER DISPATCHER (CURRENT) USE OF ANTIBIOTICS 11/02/2018 CARA NAGY MD Ot Z51.81 ENCOUNTER FOR THERAPEUTIC DRUG LEVEL MON 11/02/2018 CARA NAGY MD Ot Z79.2 SERVICE ORDER DISPATCHER (CURRENT) USE OF ANTIBIOTICS 11/04/2018 KLAUS FERRER MD Ot Z51.81 ENCOUNTER FOR THERAPEUTIC DRUG LEVEL MON 11/04/2018 KLAUS FERRER MD, Ot Z79.2 SERVICE ORDER DISPATCHER (CURRENT) USE OF ANTIBIOTICS 11/04/2018 CARA NAGY MD Ot Z51.81 ENCOUNTER FOR THERAPEUTIC DRUG LEVEL MON 11/04/2018 CARA NAGY MD Ot Z79.2 [facility]CI (CURRENT) USE OF ANTIBIOTICS 11/10/2018 ABRIL MARTINEZ MD, Ot Z51.81 ENCOUNTER FOR THERAPEUTIC DRUG LEVEL MON 11/10/2018 ABRIL MARTINEZ MD, Ot Z79.2 SERVICE ORDER DISPATCHER (CURRENT) USE OF ANTIBIOTICS 11/11/2018 KLAUS FERRER MD, Ot Z51.81 ENCOUNTER FOR THERAPEUTIC DRUG LEVEL Thu11/11/2018 KLAUS FERRER MD, Ot Z79.2 SERVICE ORDER DISPATCHER (CURRENT) USE OF ANTIBIOTICS 11/17/2018 KLAUS FERRER MD, Ot Z51.81 ENCOUNTER FOR THERAPEUTIC DRUG LEVEL MON 11/17/2018 KLAUS FERRER MD, Ot Z79.2 [facility]CI (CURRENT) USE OF ANTIBIOTICS 11/17/2018 KLAUS FERRER MD, Ot Z51.81 ENCOUNTER FOR THERAPEUTIC DRUG LEVEL Thu11/17/2018 KLAUS FERRER MD, Ot Z79.2 [facility]CI (CURRENT) USE OF ANTIBIOTICS 11/17/2018 KLAUS FERRER MD Ot Z51.81 ENCOUNTER FOR THERAPEUTIC DRUG LEVEL Thu11/17/2018 KLAUS FERRER MD, Ot Z79.2 SERVICE ORDER DISPATCHER (CURRENT) USE OF ANTIBIOTICS 11/17/2018 KLAUS FERRER MD, Ot Z51.81 ENCOUNTER FOR THERAPEUTIC DRUG LEVEL Thu11/17/2018 KLAUS FERRER MD, Ot Z79.2 SERVICE ORDER DISPATCHER (CURRENT) USE OF ANTIBIOTICS 11/19/2018 ABRIL MARTINEZ [...] ENCOUNTER FOR THERAPEUTIC DRUG LEVEL MON 11/29/2018 LKAUS FERRER MD, Ot Z79.2 SERVICE ORDER DISPATCHER (CURRENT) USE OF ANTIBIOTICS 12/01/2018 KLAUS FERRER MD, Ot T81.49XA INFECTION FOLLOWING A PROCEDURE, OTHER S 12/01/2018 YAKOV GALICIA, CARA Jackson Ot Z51.81 ENCOUNTER FOR THERAPEUTIC DRUG LEVEL MON 12/01/2018 CARA NAGY MD Ot Z79.2 SERVICE ORDER DISPATCHER (CURRENT) USE OF ANTIBIOTICS 12/01/2018 Ot Z51.81 ENCOUNTER FOR THERAPEUTIC DRUG LEVEL Thu12/01/2018 Ot Z79.2 FCI (CURRENT) USE OF ANTIBIOTICS 12/01/2018 KLAUS FERRER MD Ot Z51.81 ENCOUNTER FOR THERAPEUTIC DRUG LEVEL Thu12/01/2018 KLAUS FERRER MD, Ot Z79.2 [facility]CI (CURRENT) USE OF ANTIBIOTICS 12/01/2018 KLAUS FERRER MD Ot Z51.81 ENCOUNTER FOR THERAPEUTIC DRUG LEVEL Thu12/01/2018 KLAUS FERRER MD, Ot Z79.2 SERVICE ORDER DISPATCHER (CURRENT) USE OF ANTIBIOTICS 12/01/2018 ABRIL MARTINEZ MD, Ot Z51.81 ENCOUNTER FOR THERAPEUTIC DRUG LEVEL Thu12/01/2018 ABRIL MARTINEZ MD, Ot Z79.2 SERVICE ORDER DISPATCHER (CURRENT) USE OF ANTIBIOTICS 12/01/2018 ABRIL MARTINEZ [...] 5-8.5 Urine-Protein Negative Negative Urine-RBC Negative Urine-Specific [place] 1.025 1.000-1.030 Urine-WBC Nothing Seen on Microscopic [...] No Growth Day 5 CULTURE SOURCE RT. [id number] Lactic Acid - 06/19/18 16:35 Lactic Acid 8.1 mg/dL 4.5-19.8 Other Culture - 06/19/18 17:56 PRELIM CULTURE RESULTS Moderate Gram Positive. Coagulase negative staphylococcus species.Probable Skin Contaminant. FINAL CULTURE RESULTS Moderate Coagulase Negative Staphylococcus [id number] Skin [id number] Further Workup Done MEDIA PLATED Setup at [...] 5-8.5 Urine-Protein 1+ Negative Urine-RBC Few/HPF Urine-Specific [place] 1.025 1.000-1.030 Urine-WBC Rare/HPF Urobilinogen 0.2 E.U./dL [...] RESULTS Blood Culture POSITIVE, Growth Day 1 [id number] Coagulase Positive Staphylococci cultured. VINH/ID Follows MEDIA PLATED Setup at 23:06 on 10/18/[id number] Culture Media Position C49 CULTURE SOURCE drawn [...] RESULTS Blood Culture POSITIVE, Growth Day 1 [id number] Coagulase Positive Staphylococci cultured. VINH/ID Follows MEDIA PLATED Setup at 23:07 on 10/18/[id number] Culture Media Position C43 CULTURE SOURCE drawn [...] MANY GRAM POSITIVE COCCI IN CLUSTERS NRG Bacteria identification in wound by culture - 12/01/18 15:05 Bacteria identification in wound by culture [id number] NRG FREE TEXT EXTERNAL ACINETOBACTER BAUMANNII/CALCOACETICUS NRG QUANTITY OF GROWTH Rare NRG FREE TEXT ENTRY 2 COMPLEX; SENS. REPORTED 12-05-18,1206 NRG Dirithromycin susceptibility test by disk diffusion - 12/01/18 15:05 Oxacillin susceptibility test by minimum inhibitory concentration 0.5 NRG Clindamycin susceptibility test by minimum inhibitory concentration <= NRG Erythromycin susceptibility test by minimum inhibitory concentration <= NRG Trimethoprim/sulfamethoxazole susceptibility test by minimum inhibitoryconcentration <= NRG Vancomycin susceptibility test by minimum inhibitory concentration 1 NRG Levofloxacin susceptibility test by minimum inhibitory concentration <= NRG Rifampin susceptibility test by minimum inhibitory concentration <= NRG Cefazolin susceptibility test by minimum inhibitory concentration <= NRG Linezolid susceptibility test by minimum inhibitory concentration 2 NRG Penicillin G susceptibility test by minimum inhibitory concentration > NRG Moxifloxacin susceptibility test by minimum inhibitory concentration <= NRG Minocycline susc VINH <= NRG Dirithromycin susceptibility test by disk diffusion - 12/01/18 15:05 Gentamicin susceptibility test by minimum inhibitory concentration <= NRG Trimethoprim/sulfamethoxazole susceptibility test by minimum inhibitoryconcentration <= NRG Levofloxacin susceptibility test by minimum inhibitory concentration <= NRG Ceftriaxone susceptibility test by minimum inhibitory concentration 16 NRG Ciprofloxacin susceptibility test by minimum inhibitory concentration S NRG Meropenem susceptibility test by minimum inhibitory concentration 0.5 NRG Imipenem susceptibility test by minimum inhibitory concentration S NRG Blood lactic acid measurement (moles/volume) - [...] reactive protein measurement (mass/volume) 0.32 mg/dL 0.00-0.50 Bacterial blood culture - 12/03/18 11:25 Bacterial blood culture NG NRG Bacterial blood culture - 12/03/18 12:35 Bacterial blood culture NG NRG Encounters ACCT No. Visit Date/Time Discharge Status Pt. Type Provider Facility Loc./Unit Complaint [id number] 11/26/2018 13:42:00 11/26/2018 15:29:00 [id number] 10/18/2018 19:57:00 10/19/2018 00:33:00 [id number] 10/01/2018 17:58:00 10/01/2018 19:04:00 DIS Outpatient [facility] ER [id number] 08/23/2018 13:33:00 08/23/2018 15:27:00 [facility] [id number] 06/28/2018 15:54:00 06/28/2018 21:44:00 [facility] [id number] 06/22/2018 11:34:00 06/22/2018 13:45:00 DIS Outpatient [facility] ER [id number] 06/19/2018 15:42:00 06/19/2018 18:14:00 DIS Outpatient MARIYA LATANYASÁNCHEZ [id number] 06/12/2018 12:35:00 06/12/2018 15:49:00 [facility] [id number] 02/03/2018 13:19:00 02/03/2018 15:27:00 DIS Outpatient Jessica [facility] ER [id number] 02/03/2018 14:38:38 Document Registration [id number] 09/14/2018 13:25:00 12/05/2018 00:01:00 DIS Outpatient CARA NAGY MD Via [facility] Z51.81 Z79.2 [id number] 12/03/2018 11:05:00 12/03/2018 13:40:00 DIS Emergency SANDRA HICKMAN DO Via [facility] ER FS LT HIP PAIN REDNESS [id number] 12/01/2018 12:19:00 12/01/2018 15:30:00 DIS Emergency JAVIER HICKMAN DO Via [facility] ER FS LT HIP PAIN [id number] 11/16/2018 15:06:00 11/16/2018 23:59:59 CLS Outpatient ABRIL MARTINEZ MD Via [facility] LAB FS A41.01 T81.41XA [id number] 11/09/2018 13:18:00 11/09/2018 23:59:59 CLS Outpatient ABRIL MARTINEZ MD Via [facility] FS SERVICE ORDER DISPATCHER USE ANTIBIOTICS [id number] 11/01/2018 11:06:00 11/01/2018 23:59:59 CLS Outpatient KLAUS FERRER MD Via [facility] FS IV ANTIBOTICS FCI USE [id number] 10/26/2018 12:37:00 10/26/2018 23:59:59 CLS Outpatient KLAUS FERRER MD Via [facility] FS SERVICE ORDER DISPATCHER USE ANTIBIOTICS [id number] 08/30/2018 17:46:00 08/30/2018 23:59:59 CLS Outpatient KLAUS FERRER MD Via [facility] [id number] 08/21/2018 14:33:00 08/21/2018 19:53:00 DIS Emergency AJ MAKI MD Via [facility] ER FS HIP PAIN [id number] 08/12/2018 13:41:00 08/13/2018 00:08:00 DIS Emergency ANETTE ANGELO DO Via [facility] ER FS WOUND CHECK [id number] 12/06/2018 00:11:00 PEN Preadmit YAKOV GALICIA, CARA Jackson Via [facility] Z51.81 Z79.2 [id number] 09/21/2018 12:32:00 Document Registration
== END 2018-12-06 20:05 | disposition short-term general hospital (02) ==
LOC: EDUNIT# 17:59 → ER FS 18:02
DX: T81.43XA Infection following a procedure, organ and space surgical site, initial encounter (principal); M25.542 Pain in joints of left hand; Z88.2 Allergy status to sulfonamides; Z88.1 Allergy status to other antibiotic agents; Z77.22 Contact with and (suspected) exposure to environmental tobacco smoke (acute) (chronic); Z90.49 Acquired absence of other specified parts of digestive tract; Z87.39 Personal history of other diseases of the musculoskeletal system and connective tissue
CPT/HCPCS: 96374; 96375

== ENCOUNTER 2018-12-17 16:41 | Emergency (ER) | payer MEDICAID ==
[~2018-12-17] VITALS: Ht 162.6 cm; Wt 88.5 kg
--- OUTSIDE RECORDS SUMMARY | 2018-12-17 16:49 | XMS REPORT | Continuity of Care Document ---
Author Organization Unknown Address Unknown Phone Unavailable Allergies Active Description Code Type Severity Reaction Onset Reported/Identified Relationship to Patient Clinical Status Yes CIPRO UNKNOWN OTHER Yes CIPRO UNKNOWN UNKNOWN Yes PENICILLINS UNKNOWN OTHER Yes PENICILLINS UNKNOWN UNKNOWN Yes SULFA (SULFONAMIDE ANTIBIOTICS) UNKNOWN OTHER Yes SULFA (SULFONAMIDE ANTIBIOTICS) UNKNOWN UNKNOWN Yes VANCOMYCIN UNKNOWN OTHER Yes VANCOMYCIN UNKNOWN UNKNOWN Yes ciprofloxacin [id number] Drug Allergy Unknown N/A 08/12/2018 Yes levofloxacin [id number] Drug Allergy Unknown N/A 08/12/2018 Yes No Known Drug Allergies [id number] Drug Allergy Unknown N/A 08/12/2018 Yes SULFA SULFA Unknown N/A 08/12/2018 Yes vancomycin [id number] Drug Allergy Unknown N/A 08/12/2018 Yes Sulfa (Sulfonamide Antibiotics) [id number] Drug Allergy Unknown N/A 08/21/2018 Medications Medication [...] LEFT UPPER QUADRANT PAIN 06/12/2018 Jeovany Pennington 338.18 OTHER ACUTE POSTOPERATIVE PAIN 06/12/2018 Jeovany [...] OF SITE, INIT 08/13/2018 ANETTE ANGELO DO T Ot F17.210 NICOTINE DEPENDENCE, CIGARETTES, UNCOMPL 08/13/2018 [...] L03.116 CELLULITIS OF LEFT LOWER LIMB 08/14/2018 ANETTE ANGELO DO T Ot L03.317 CELLULITIS OF BUTTOCK 08/14/2018 ANETTE ANGELO DO Ot R50.9 FEVER, UNSPECIFIED 08/14/2018 ANETTE ANGELO DO Ot Z88.1 ALLERGY STATUS TO OTHER ANTIBIOTIC AGENT 08/14/2018 KWAME ANGELO DOED T Ot Z88.2 ALLERGY STATUS TO SULFONAMIDES STATUS 08/14/2018 ANETTE ANGELO DO Ot Z90.49 ACQUIRED ABSENCE OF OTHER SPECIFIED [...] Z88.8 ALLERGY STATUS TO OTH DRUG/MEDS/BIOL SUB 08/25/2018 AJ MAKI MD Ot Z90.49 ACQUIRED ABSENCE OF OTHER SPECIFIED PART 08/25/2018 AJ MAKI MD Ot Z98.890 OTHER SPECIFIED POSTPROCEDURAL STATES 09/01/2018 KLAUS FERRER MD, Ot T81.49XA INFECTION FOLLOWING A PROCEDURE, OTHER S 09/06/2018 KLAUS FERRER MD, Ot T81.49XA INFECTION FOLLOWING A PROCEDURE, OTHER S 09/07/2018 CARA NAGY MD Ot Z51.81 ENCOUNTER FOR THERAPEUTIC DRUG LEVEL MON 09/07/2018 CARA NAGY MD, Ot Z79.2 LONG-TERM (CURRENT) USE OF ANTIBIOTICS 09/07/2018 CARA NAGY MD Ot Z51.81 ENCOUNTER FOR THERAPEUTIC DRUG LEVEL MON 09/07/2018 CARA NAGY MD, Ot Z79.2 CALL CENTER TRAINER (CURRENT) USE OF ANTIBIOTICS 09/16/2018 KLAUS FERRER MD, Ot T81.49XA INFECTION FOLLOWING A PROCEDURE, OTHER S 09/23/2018 Ot Z51.81 ENCOUNTER FOR THERAPEUTIC DRUG LEVEL MON 09/23/2018 Ot Z79.2 LONG-TERM (CURRENT) USE OF ANTIBIOTICS 10/01/2018 Jeovany Pennington 924.01 CONTUSION OF HIP 10/01/2018 Jeovany Pennington S70.02XA CONTUSION OF LEFT HIP, INITIAL ENCOUNTER 10/19/2018 HARLEY NEVES W 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, UNSPECIFIED 10/19/2018 HARLEY NEVES A41.2 SEPSIS DUE TO UNSPECIFIED STAPHYLOCOCCUS 10/28/2018 KLAUS FERRER MD Ot Z51.81 ENCOUNTER FOR THERAPEUTIC DRUG LEVEL MON 10/28/2018 KLAUS FERRER MD, Ot Z79.2 LONG-TERM (CURRENT) USE OF ANTIBIOTICS 11/02/2018 CARA NAGY MD Ot Z51.81 ENCOUNTER FOR THERAPEUTIC DRUG LEVEL MON 11/02/2018 CARA NAGY MD Ot Z79.2 CALL CENTER TRAINER (CURRENT) USE OF ANTIBIOTICS 11/04/2018 KALUS FERRER MD Ot Z51.81 ENCOUNTER FOR THERAPEUTIC DRUG LEVEL MON 11/04/2018 KLAUS FERRER MD Ot Z79.2 LONG-TERM (CURRENT) USE OF ANTIBIOTICS 11/04/2018 CARA NAGY MD, Ot Z51.81 ENCOUNTER FOR THERAPEUTIC DRUG LEVEL MON 11/04/2018 CARA NAGY MD Ot Z79.2 CALL CENTER TRAINER (CURRENT) USE OF ANTIBIOTICS 11/10/2018 ABRIL MARTINEZ MD, Ot Z51.81 ENCOUNTER FOR THERAPEUTIC DRUG LEVEL MON 11/10/2018 ABRIL MARTINEZ MD, Ot Z79.2 CALL CENTER TRAINER (CURRENT) USE OF ANTIBIOTICS 11/11/2018 KLAUS FERRER MD, Ot Z51.81 ENCOUNTER FOR THERAPEUTIC DRUG LEVEL MON 11/11/2018 KLAUS FERRER MD, Ot Z79.2 CALL CENTER TRAINER (CURRENT) USE OF ANTIBIOTICS 11/17/2018 KLAUS FERRER MD, Ot Z51.81 ENCOUNTER FOR THERAPEUTIC DRUG LEVEL MON 11/17/2018 KLAUS FERRER MD, Ot Z79.2 LONG-TERM (CURRENT) USE OF ANTIBIOTICS 11/17/2018 KLAUS FERRER MD, Ot Z51.81 ENCOUNTER FOR THERAPEUTIC DRUG LEVEL Thu11/17/2018 KLAUS FERRER MD, Ot Z79.2 LONG-TERM (CURRENT) USE OF ANTIBIOTICS 11/17/2018 KLAUS FERRER MD Ot Z51.81 ENCOUNTER FOR THERAPEUTIC DRUG LEVEL MON 11/17/2018 KLAUS FERRER MD, Ot Z79.2 LONG-TERM (CURRENT) USE OF ANTIBIOTICS 11/17/2018 KLAUS FERRER MD Ot Z51.81 ENCOUNTER FOR THERAPEUTIC DRUG LEVEL MON 11/17/2018 KLAUS FERRER MD, Ot Z79.2 LONG-TERM (CURRENT) USE OF ANTIBIOTICS 11/19/2018 ABRIL MARTINEZ [...] MON 11/29/2018 KLAUS FERRER MD, Ot Z79.2 LONG-TERM (CURRENT) USE OF ANTIBIOTICS 12/01/2018 KLAUS FERRER MD, Ot T81.49XA INFECTION FOLLOWING A PROCEDURE, OTHER S 12/01/2018 CARA NAGY MD Ot Z51.81 ENCOUNTER FOR THERAPEUTIC DRUG LEVEL MON 12/01/2018 CARA NAGY MD Ot Z79.2 CALL CENTER TRAINER (CURRENT) USE OF ANTIBIOTICS 12/01/2018 Ot Z51.81 ENCOUNTER FOR THERAPEUTIC DRUG LEVEL MON 12/01/2018 Ot Z79.2 CALL CENTER TRAINER (CURRENT) USE OF ANTIBIOTICS 12/01/2018 KLAUS FERRER MD Ot Z51.81 ENCOUNTER FOR THERAPEUTIC DRUG LEVEL MON 12/01/2018 KLAUS FERRER MD Ot Z79.2 LONG-TERM (CURRENT) USE OF ANTIBIOTICS 12/01/2018 KLAUS FERRER MD Ot Z51.81 ENCOUNTER FOR THERAPEUTIC DRUG LEVEL MON 12/01/2018 KLAUS FERRER MD, Ot Z79.2 CALL CENTER TRAINER (CURRENT) USE OF ANTIBIOTICS 12/01/2018 ABRIL MARTINEZ MD, Ot Z51.81 ENCOUNTER FOR THERAPEUTIC DRUG LEVEL MON 12/01/2018 ABRIL MARTINEZ MD, Ot Z79.2 CALL CENTER TRAINER (CURRENT) USE OF ANTIBIOTICS 12/01/2018 ARBIL MARTINEZ MD Ot A41.01 SEPSIS DUE TO METHICILLIN SUSCEPTIBLE ST 12/01/2018 ABRIL MARTINEZ MD, Ot T81.41XA INFCT FOL A PROC, SUPERFIC INCISIONAL TAYLOR 12/05/2018 CARA NAGY MD, Ot Z51.81 ENCOUNTER FOR THERAPEUTIC DRUG LEVEL MON 12/05/2018 CARA NAGY MD, Ot Z79.2 CALL CENTER TRAINER (CURRENT) USE OF ANTIBIOTICS 12/06/2018 JAVIER HICKMAN DO, Ot M25.542 PAIN IN JOINTS OF LEFT HAND 12/06/2018 JAVIER HICKMAN DO, Ot M25.552 PAIN IN LEFT HIP 12/06/2018 JAVIER HICKMAN DO, Ot T81.43XA INFCT FOL A PROCEDURE, ORGAN AND SPACE S 12/06/2018 JAVIER HICKMAN DO, Ot Z77.22 CNTCT W AND EXPSR TO ENVIRON TOBACCO SMO 12/06/2018 JAVIER HICKMAN DO, Ot Z87.39 PERSONAL HISTORY OF DISEASES OF THE MS S 12/06/2018 JAVIER HICKMAN DO, Ot Z88.1 ALLERGY STATUS TO OTHER ANTIBIOTIC AGENT 12/06/2018 JAVIER HICKMAN DO, Ot Z88.2 ALLERGY STATUS TO SULFONAMIDES STATUS 12/06/2018 VICK DO, JAVIER D Ot Z90.49 ACQUIRED ABSENCE OF OTHER SPECIFIED PART 12/08/2018 JAVIER HICKMAN DO Ot M25.552 PAIN IN LEFT HIP 12/08/2018 JAVIER HICKMAN DO Ot Z77.22 CNTCT W AND EXPSR TO ENVIRON TOBACCO SMO 12/08/2018 JAVIER HICMKAN DO Ot Z88.1 ALLERGY STATUS TO OTHER ANTIBIOTIC AGENT 12/08/2018 JAVIER HICKMAN DO Ot Z88.2 ALLERGY STATUS TO SULFONAMIDES STATUS 12/08/2018 JAVIER HICKMAN DO Ot Z90.49 ACQUIRED ABSENCE OF OTHER SPECIFIED PART 12/10/2018 SANDRA HICKMAN DO Ot M25.552 PAIN IN LEFT HIP 12/10/2018 SANDRA HICKMAN DO Ot Z77.22 CNTCT W AND EXPSR TO ENVIRON TOBACCO SMO 12/10/2018 SANDRA HICKMAN DO Ot Z88.1 ALLERGY STATUS TO OTHER ANTIBIOTIC AGENT 12/10/2018 SANDRA HICKMAN DO Ot Z88.2 ALLERGY STATUS TO SULFONAMIDES STATUS 12/10/2018 SANDRA HICKMAN DO Ot Z90.49 ACQUIRED ABSENCE OF OTHER SPECIFIED PART 12/10/2018 SANDRA HICKMAN DO Ot Z96.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 12/13/2018 JAVIER HICKMAN DO Ot M25.542 PAIN IN JOINTS OF LEFT HAND 12/13/2018 JAVIER HICKMAN DO Ot M25.552 PAIN IN LEFT HIP 12/13/2018 JAVIER HICKMAN DO Ot T81.43XA INFCT FOL A PROCEDURE, ORGAN AND SPACE S 12/13/2018 JAVIER HICKMAN DO Ot Z77.22 CNTCT W AND EXPSR TO ENVIRON TOBACCO SMO 12/13/2018 JAVIER HICKMAN DO Ot Z87.39 PERSONAL HISTORY OF DISEASES OF THE MS S 12/13/2018 JAVIER HICKMAN DO Ot Z88.1 ALLERGY STATUS TO OTHER ANTIBIOTIC AGENT 12/13/2018 JAVIER HICKMAN DO Ot Z88.2 ALLERGY STATUS TO SULFONAMIDES STATUS 12/13/2018 JAVIER HICKMAN DO Ot Z90.49 ACQUIRED ABSENCE OF OTHER SPECIFIED PART 12/14/2018 CARA NAGY MD Ot Z51.81 ENCOUNTER FOR THERAPEUTIC DRUG LEVEL MON 12/14/2018 CARA NAGY MD Ot Z79.2 CALL CENTER TRAINER (CURRENT) USE OF ANTIBIOTICS Procedures There is no data. Results Test [...] 5-8.5 Urine-Protein Negative Negative Urine-RBC Negative Urine-Specific [place] 1.025 1.000-1.030 Urine-WBC Nothing Seen on Microscopic [...] No Growth Day 5 CULTURE SOURCE RT. [id number] Lactic Acid - 06/19/18 16:35 Lactic Acid 8.1 mg/dL 4.5-19.8 Other Culture - 06/19/18 17:56 PRELIM CULTURE RESULTS Moderate Gram Positive. Coagulase negative staphylococcus species.Probable Skin Contaminant. FINAL CULTURE RESULTS Moderate Coagulase Negative Staphylococcus [id number] Skin [id number] Further Workup Done MEDIA PLATED Setup at 16:34 on 06/19/2018 Sed Rate - 06/22/18 11:54 Sed Rate 26 mm/hr 9- Sed Rate - 06/28/18 16:21 Sed Rate 81 mm/hr 9- Urinalysis - 06/28/18 16:21 Icotest Negative Negative [...] 5-8.5 Urine-Protein 1+ Negative Urine-RBC Few/HPF Urine-Specific [place] 1.025 1.000-1.030 Urine-WBC Rare/HPF Urobilinogen 0.2 E.U./dL [...] NRG Manual blood basophils/100 leukocytes 1 % NR Comprehensive metabolic panel - 08/12/18 13:55 Serum [...] RESULTS Blood Culture POSITIVE, Growth Day 1 [id number] Coagulase Positive Staphylococci cultured. VINH/ID Follows MEDIA PLATED Setup at 23:06 on 10/18/[id number] Culture Media Position C49 CULTURE SOURCE drawn [...] RESULTS Blood Culture POSITIVE, Growth Day 1 [id number] Coagulase Positive Staphylococci cultured. VINH/ID Follows MEDIA PLATED Setup at 23:07 on 10/18/[id number] Culture Media Position C43 CULTURE SOURCE drawn [...] 15:05 Bacteria identification in wound by culture [id number] NR FREE TEXT EXTERNAL ACINETOBACTER BAUMANNII/CALCOACETICUS NRG QUANTITY OF GROWTH Rare NRG FREE TEXT ENTRY 2 COMPLEX; SENS. REPORTED 12-05-18,1206 NR Dirithromycin susceptibility test by disk diffusion - [...] Status Pt. Type Provider Facility Loc./Unit Complaint [id number] 11/26/2018 13:42:00 11/26/2018 15:29:00 [id number]/18[facility]2018 19:57:00 10/19/2018 00:33:00 [facility] [id number] 10/01/2018 17:58:00 10/01/2018 19:04:00 [id number] 08/23/2018 13:33:00 08/23/2018 15:27:00 [facility] [id number] 06/28/2018 15:54:00 06/28/2018 21:44:00 [facility] [id number] 06/22/2018 11:34:00 06/22/2018 13:45:00 [facility] [id number] 06/19/2018 15:42:00 06/19/2018 18:14:00 DIS Outpatient LEIGHANN MERAZ [id number] 06/12/2018 12:35:00 06/12/2018 15:49:00 [id number] 02/03/2018 13:19:00 02/03/2018 15:27:00 DIS Outpatient [facility]ber [facility] ER [id number] 02/03/2018 14:38:38 Document Registration [id number] 12/06/2018 00:11:00 12/06/2018 23:59:59 [facility] CARA NAGY MD Via [facility] Z51.81 Z79.2 [id number] 12/06/2018 18:02:00 12/06/2018 20:05:00 DIS Emergency JAVIER HICKMAN DO Via [facility] ER FS HIP PAIN [id number] 09/14/2018 13:25:00 12/05/2018 00:01:00 DIS Outpatient CARA NAGY MD Via [facility] Z51.81 Z79.2 [id number] 12/03/2018 11:05:00 12/03/2018 13:40:00 DIS Outpatient SANDRA HICKMAN DO Via [facility] ER FS LT HIP PAIN REDNESS [id number] 12/01/2018 12:19:00 12/01/2018 15:30:00 DIS Outpatient JAVIER HICKMAN DO Via [facility] ER FS LT HIP PAIN [id number] 11/16/2018 15:06:00 11/16/2018 23:59:59 CLS Outpatient ABRIL MARTINEZ MD Via [facility] LAB FS A41.01 T81.41XA [id number] 11/09/2018 13:18:00 11/09/2018 23:59:59 CLS Outpatient ABRIL MARTINEZ MD Via [facility] FS LONG-TERM USE ANTIBIOTICS [id number] 11/01/2018 11:06:00 11/01/2018 23:59:59 CLS Outpatient KLAUS FERRER MD Via [facility] FS IV ANTIBOTICS LONG-TERM USE [id number] 10/26/2018 12:37:00 10/26/2018 23:59:59 CLS Outpatient KLAUS FERRER MD Via [facility] FS CALL CENTER TRAINER USE ANTIBIOTICS [id number] 08/30/2018 17:46:00 08/30/2018 23:59:59 CLS Outpatient KLAUS FERRER MD Via [facility] [id number] 08/21/2018 14:33:00 08/21/2018 19:53:00 DIS Emergency AJ MAKI MD Via [facility] FS HIP PAIN [id number] 08/12/2018 13:41:00 08/13/2018 00:08:00 DIS Emergency ANETTE ANGELO DO Via [facility] FS WOUND CHECK [id number] 12/17/2018 16:43:00 ACT Emergency MIRA CENTENO MD Via [facility] FS SWELLING AND DRAINAGE WITH SURGERY WOUND [id number] 09/21/2018 12:32:00 Document Registration [id number] 12/06/2018 16:20:00 12/06/2018 23:59:59 CLS Outpatient BRYAN ERIC
[2018-12-17] MEDS ORDERED: oxyCODONE/APAP 5/325MG (PERCOCET 5) TABLET ONE (17:45)
[2018-12-17] MEDS ORDERED: oxyCODONE/APAP 10/325MG (PERCOCET 10) TABLET PO ONE (17:45)
[2018-12-17] MEDS ORDERED: oxyCODONE/APAP 5/325MG (PERCOCET 5) TABLET PO ONE (18:00)
[2018-12-17 18:28] LABS: BUN/CREATININE RATIO 22; CARBON DIOXIDE 24 MMOL/L (21-32); CHLORIDE 101 MMOL/L (98-107); CREATININE SERUM 0.59 MG/DL (0.60-1.30); GFR ESTIMATED > 60; GLUCOSE 121 MG/DL (70-105); POTASSIUM 4.2 MMOL/L (3.6-5.0); SODIUM 139 MMOL/L (135-145)
[2018-12-17 18:29] LABS: ALANINE AMINOTRANSFERASE 12 U/L (0-55); ALKALINE PHOSPHATASE 88 U/L (40-136); BILIRUBIN,TOTAL 0.2 MG/DL (0.1-1.0); CALCIUM 9.2 MG/DL (8.5-10.1); TOTAL PROTEIN 7.1 GM/DL (6.4-8.2)
[2018-12-17 18:30] LABS: HEMATOCRIT 33 % (35-52); HEMOGLOBIN 10.4 G/DL (11.5-16.0); MEAN CORPUSCULAR HEMOGLOBIN 27 PG (25-34); MEAN CORPUSCULAR HGB CONC 32 G/DL (32-36); MEAN CORPUSCULAR VOLUME 84 FL (80-99); MEAN PLATELET VOLUME 9.2 FL (7.4-10.4); PLATELET COUNT 316 10^3/uL (130-400); RED CELL DISTRIBUTION WIDTH 19.1 % (10.0-14.5); WHITE BLOOD COUNT 6.6 10^3/uL (4.3-11.0)
[2018-12-17 19:00] LABS: NEUTROPHILS % (MANUAL) 47 %
[2018-12-17 19:01] LABS: BAND NEUTROPHILS 1 %; EOSINOPHILS % (MANUAL) 4 %; HYPOCHROMASIA 1+; LYMPHOCYTES % (MANUAL) 43 %; MICROCYTOSIS 1+; MONOCYTES % (MANUAL) 5 %
--- NOTE | 2018-12-17 19:30 | ED Integumentary General ---
General Chief Complaint: Skin/Wound Problems Stated Complaint: SWELLING AND DRAINAGE WITH SURGERY WOUND Nursing Triage Note: Patient had surgery on the to have screws taken out of left hip. Is having swelling, burning, and discharge from surgical site. Source: patient Exam Limitations: no limitations History of Present Illness Date Seen by Provider: Dec 17, 2018 Time Seen by Provider: 17:00 Initial Comments Patient had surgery on the to have screws taken out of left hip. Is having swelling, burning, and discharge from surgical site. The patient is on 2 different antibiotics doxycycline and another antibiotic. Because she has some swelling and burning and discharge from around the surgical site the nursing [facility] told her to be evaluated. She denies fevers chills and diet denies any other problems. Patient does want pain medications Timing/Duration: this morning Severity: mild Location: torso Associated Symptoms: denies symptoms; No fever; swelling/mass/lumps (patient is swelling around the surgical site in her left inguinal area and left hip.) Allergies and Home Medications Allergies Coded Allergies: Sulfa (Sulfonamide Antibiotics) (Verified Allergy, Unknown, 08/21/18) ciprofloxacin (Verified Allergy, Unknown, 08/12/18) levofloxacin (Verified Allergy, Unknown, 08/12/18) vancomycin (Verified Allergy, Unknown, 08/12/18) Uncoded Allergies: SULFA (Allergy, Unknown, 08/12/18) Home Medications Clindamycin HCl 300 Mg Capsule, 300 MG PO Q6H Prescribed by: SANDRA HICKMAN on 12/03/18 1331 Hydrocodone Bit/Acetaminophen 1 Ea Tablet, 1 EACH PO Q6H Prescribed by: JAVIER HICKMAN on 12/01/18 1530 Oxycodone HCl/Acetaminophen 1 Each Tablet, 1 TAB PO Q6H PRN for PAIN-MODERATE Prescribed by: SANDRA HICKMAN on 12/03/18 1331 Patient Home Medication List Home Medication List Reviewed: Yes Review of Systems Review of Systems Constitutional: No chills, No diaphoresis, No fever, No weakness EENTM: see HPI; No blurred vision, No double vision, No throat pain Respiratory: No short of breath, No stridor Cardiovascular: No edema, No palpitations, No syncope Gastrointestinal: No diarrhea, No nausea Genitourinary: No hematuria, No pain : No Musculoskeletal: see HPI Skin: change in color (slight erythema around the wound.) Psychiatric/Neurological: See HPI; Denies Paresthesia, Denies Seizure, Denies Tingling Endocrine: See HPI; Denies Excessive Sweating, Denies Flushing, Denies Increased Urine, Denies Other Hematologic/Lymphatic: Denies Other Past Iimcppp-Xhvrps-Uixftn Hx Patient Social History Alcohol Use: Denies Use Recreational Drug Use: No Smoking Status: Former Smoker Type Used: Cigarettes 2nd Hand Smoke Exposure: Yes Recent Foreign Travel: No Contact w/Someone Who Travel: No Recent Infectious Disease Expo: No Recent Hopitalizations: No Physical Abuse: No Sexual Abuse: No Mistreated: No Fear: No Seasonal Allergies Seasonal Allergies: No Past Medical History Surgeries: Yes (hip, bi-lat knee, left hip dysplasia repair) Appendectomy, Section, Gallbladder, Orthopedic Respiratory: No Cardiac: No Neurological: No Genitourinary: No Gastrointestinal: No Musculoskeletal: No Endocrine: No HEENT: No Cancer: No Psychosocial: No Integumentary: No Blood Disorders: No Physical Exam Vital Signs Vital Signs - First Documented 12/17/18 17:05 Temp 97.6 Pulse 86 Resp 18 B/P (MAP) 115/67 (83) Pulse Ox 98 Capillary Refill : Less Than 3 Seconds General Appearance: WD/WN (marked exogenous obesity), no apparent distress HEENT: PERRL/EOMI, normal ENT inspection, TMs normal, pharynx normal Neck: non-tender, full range of motion, supple, normal inspection Cardiovascular: normal peripheral pulses, regular rate, rhythm, no edema, no gallop, no JVD, no murmur Respiratory: chest non-tender, lungs clear, normal breath sounds, no respiratory distress, no accessory muscle use Gastrointestinal: normal bowel sounds, non tender, soft, no organomegaly, no pulsatile mass Back: normal inspection, no CVA tenderness, no vertebral tenderness Extremities: normal range of motion, non-tender, normal inspection, no pedal edema, no calf tenderness, normal capillary refill, pelvis stable Neurologic/Psychiatric: director dietetics department II-XII nml as tested, no motor/sensory deficits, alert, normal mood/affect, oriented x 3, EOM palsy, depressed affect Skin: normal color (patient has erythema around the surgical site however it does not appear to be grossly infected and there is very scant drainage), warm/dry Skin Problem Location: lower extremities Skin Problem Character: drainage (\very scant amount of drainage of drainage), erythema (there is slight erythema around the wound) Lymphatic: no adenopathy Progress/Results/Core Measures Results/Orders Lab Results Laboratory Tests Test 12/17/18 17:55 Range/Units White Blood Count 6.6 4.3-11.0 10^3/uL Red Blood Count 3.85 L 4.35-5.85 10^6/uL Hemoglobin 10.4 L 11.5-16.0 G/DL Hematocrit 33 L 35-52 % Mean Corpuscular Volume 84 80-99 FL Mean Corpuscular Hemoglobin 27 25-34 PG Mean Corpuscular Hemoglobin Concent 32 32-36 G/DL Red Cell Distribution Width 19.1 H 10.0-14.5 % Platelet Count 316 130-400 10^3/uL Mean Platelet Volume 9.2 7.4-10.4 FL Neutrophils (%) (Auto) 42-75 % Lymphocytes (%) (Auto) 12-44 % Monocytes (%) (Auto) 0-12 % Eosinophils (%) (Auto) 0-10 % Basophils (%) (Auto) 0-10 % Neutrophils # (Auto) 1.8-7.8 X 10^3 Lymphocytes # (Auto) 1.0-4.0 X 10^3 Monocytes # (Auto) 0.0-1.0 X 10^3 Eosinophils # (Auto) 0.0-0.3 10^3/uL Basophils # (Auto) 0.0-0.1 10^3/uL Neutrophils % (Manual) 47 % Lymphocytes % (Manual) 43 % Monocytes % (Manual) 5 % Eosinophils % (Manual) 4 % Band Neutrophils 1 % Hypochromasia 1+ Microcytosis 1+ Sodium Level 139 135-145 MMOL/L Potassium Level 4.2 3.6-5.0 MMOL/L Chloride Level 101 98-107 MMOL/L Carbon Dioxide Level 24 21-32 MMOL/L Anion Gap 14 5-14 MMOL/L Blood Urea Nitrogen 13 7-18 MG/DL Creatinine 0.59 L 0.60-1.30 MG/DL Estimat Glomerular Filtration Rate > 60 BUN/Creatinine Ratio 22 Glucose Level 121 H 70-105 MG/DL Lactic Acid Level 0.61 0.50-2.00 MMOL/L Calcium Level 9.2 8.5-10.1 MG/DL Corrected Calcium 9.2 8.5-10.1 MG/DL Total Bilirubin 0.2 0.1-1.0 MG/DL Aspartate Amino Transf (AST/SGOT) 18 5-34 U/L Alanine Aminotransferase (ALT/SGPT) 12 0-55 U/L Alkaline Phosphatase 88 40-136 U/L Total Protein 7.1 6.4-8.2 GM/DL Albumin 4.0 3.2-4.5 GM/DL My Orders Orders - MIRA CENTENO MD Blood Culture (12/17/18 17:26) Cbc And Manual Diff (12/17/18 17:26) Comprehensive Metabolic Panel (12/17/18 17:26) Oxycodone/Acet 10/325mg Tablet (Percocet (12/17/18 17:45) Lactic Acid Analyzer (12/17/18 17:38) Oxycodone/Apap 5/325mg Tablet (Percocet (12/17/18 17:45) Oxycodone/Apap 5/325mg Tablet (Percocet (12/17/18 18:00) Medications Given in ED Current Medications Medications Dose Ordered Sig/Amarilys Route Start Time Stop Time Status Last Admin Dose Admin Oxycodone/ Acetaminophen 2 tab ONCE ONCE PO 12/17/18 18:00 12/17/18 18:01 DC 12/17/18 18:03 2 TAB Vital Signs/I&O 12/17/18 17:05 Temp 97.6 Pulse 86 Resp 18 B/P (MAP) 115/67 (83) Pulse Ox 98 Blood Pressure Mean: 83 Progress Progress Note : Time: 19:34 Progress Note This patient presents because she is worried about a surgical wound infection however she is on IV antibiotics as well as her buttocks. She is worried because is draining a slight amount of serosanguineous fluid but no purulence. She has a slight amount of erythema around the wound but it does not appear to be grossly infected. Patient does want some pain medications unless she was given prescription for her, one every 6 hours. She was given 4 days' worth. Because she had an operation at so she is going to seek medical attention there tomorrow. Departure Impression Primary Impression: Infected surgical wound Disposition: HOME, SELF-CARE Condition: Stable Departure-Patient Inst. Referrals: BENJAMÍN GIVENS MD (PCP/Family) Primary Care Physician Patient Instructions: Surgical Wound (DC) Add. Discharge Instructions: Please go to [facility] where your operation was performed and have them evaluate the wound tomorrow. All discharge instructions reviewed with patient and/or family. Voiced understanding. Scripts Hydrocodone/Acetaminophen ([place] 5-325 Tablet) 1 Each Tablet 1 TAB PO Q6H for Pain MDD 10 TABS for 4 Days, TAB Prov: MIRA CENTENO MD 12/17/18 MIRA CENTENO MD Dec 17, 2018 19:30
[2018-12-17] MEDS ORDERED: HYDR-4226 PO (19:34)
[2018-12-17 19:46] VITALS: BP 115/70
== END 2018-12-17 19:46 | disposition home or self-care (01) ==
LOC: EDUNIT# 16:41 → ER FS 16:43
DX: T81.49XA Infection following a procedure, other surgical site, initial encounter (principal); Z88.2 Allergy status to sulfonamides; Z88.1 Allergy status to other antibiotic agents; Z87.891 Personal history of nicotine dependence; Z77.22 Contact with and (suspected) exposure to environmental tobacco smoke (acute) (chronic); Z90.49 Acquired absence of other specified parts of digestive tract
CPT/HCPCS: 36415; 80053; 83605; 85007; 85027; 87040

== ENCOUNTER → 2019-01-13 | Outpatient (CLI) | payer MEDICAID ==
[~2019-01-13] MED LIST changes: +FAMO-119 PO; +HYDR-4226 PO; +ONDA4TAB11 PO
[2019-01-13 14:20] LABS: HEMATOCRIT 34 % (35-52); HEMOGLOBIN 10.6 G/DL (11.5-16.0); MEAN CORPUSCULAR HEMOGLOBIN 26 PG (25-34); MEAN CORPUSCULAR VOLUME 84 FL (80-99); WHITE BLOOD COUNT 7.5 10^3/uL (4.3-11.0)
[2019-01-13 14:21] LABS: BASOPHILS % (AUTO) 0 % (0-10); EOSINOPHILS # (AUTO) 0.4 10^3/uL (0.0-0.3); EOSINOPHILS % (AUTO) 5 % (0-10); LYMPHOCYTES # (AUTO) 2.7 X 10^3 (1.0-4.0); LYMPHOCYTES % (AUTO) 37 % (12-44); MEAN CORPUSCULAR HGB CONC 31 G/DL (32-36); MEAN PLATELET VOLUME 9.2 FL (7.4-10.4); MONOCYTES # (AUTO) 0.5 X 10^3 (0.0-1.0); MONOCYTES % (AUTO) 7 % (0-12); NEUTROPHILS # (AUTO) 3.8 X 10^3 (1.8-7.8); NEUTROPHILS % (AUTO) 52 % (42-75); PLATELET COUNT 483 10^3/uL (130-400)
[2019-01-13 14:36] LABS: BAND NEUTROPHILS 3 %; BASOPHILS % (MANUAL) 2 %; EOSINOPHILS % (MANUAL) 3 %; LYMPHOCYTES % (MANUAL) 40 %; MONOCYTES % (MANUAL) 9 %; NEUTROPHILS % (MANUAL) 43 %; RBC MORPH NORMAL
[2019-01-13 14:37] LABS: BUN/CREATININE RATIO 17; CARBON DIOXIDE 26 MMOL/L (21-32); CHLORIDE 100 MMOL/L (98-107); CREATININE SERUM 0.63 MG/DL (0.60-1.30); GFR ESTIMATED > 60; POTASSIUM 4.1 MMOL/L (3.6-5.0); SODIUM 141 MMOL/L (135-145)
[2019-01-13 14:38] LABS: CALCIUM 9.2 MG/DL (8.5-10.1); GLUCOSE 138 MG/DL (70-105)
== END ==
LOC: LAB FS 14:10
PROVIDERS: ATTEND Internal Medicine
DX: A49.02 Methicillin resistant Staphylococcus aureus infection, unspecified site (principal); Z79.2 Long term (current) use of antibiotics
CPT/HCPCS: 36415; 80048; 85007; 85027

== ENCOUNTER 2019-01-14 17:48 | Emergency (ER) | payer MEDICAID ==
[~2019-01-14] VITALS: Ht 162.6 cm; Wt 88.5 kg
[~2019-01-14 17:48] MED LIST changes: -FAMO-119 PO; -ONDA4TAB11 PO
[2019-01-14 18:27] LABS: BASOPHILS % (AUTO) 1 % (0-10); EOSINOPHILS # (AUTO) 0.2 10^3/uL (0.0-0.3); EOSINOPHILS % (AUTO) 4 % (0-10); HEMATOCRIT 32 % (35-52); HEMOGLOBIN 10.1 G/DL (11.5-16.0); LYMPHOCYTES # (AUTO) 2.3 X 10^3 (1.0-4.0); LYMPHOCYTES % (AUTO) 41 % (12-44); MEAN CORPUSCULAR HEMOGLOBIN 26 PG (25-34); MEAN CORPUSCULAR HGB CONC 32 G/DL (32-36); MEAN CORPUSCULAR VOLUME 83 FL (80-99); MEAN PLATELET VOLUME 8.7 FL (7.4-10.4); MONOCYTES # (AUTO) 0.4 X 10^3 (0.0-1.0); MONOCYTES % (AUTO) 6 % (0-12); NEUTROPHILS # (AUTO) 2.8 X 10^3 (1.8-7.8); NEUTROPHILS % (AUTO) 48 % (42-75); PLATELET COUNT 452 10^3/uL (130-400); RED CELL DISTRIBUTION WIDTH 14.7 % (10.0-14.5); WHITE BLOOD COUNT 5.8 10^3/uL (4.3-11.0)
--- NOTE | 2019-01-14 18:36 | Diagnostic Imaging Report ---
INDICATION: Chest discomfort. EXAMINATION: PA and lateral views of the chest. FINDINGS: The heart size and vascularity are normal. Lungs are clear. There is no effusion. There is no acute bony abnormality. IMPRESSION: No acute abnormality is seen. There is no change from 08/12/2018. Dictated by: Dictated on workstation # [id number]
[2019-01-14 18:47] LABS: BUN/CREATININE RATIO 18; CALCIUM 9.1 MG/DL (8.5-10.1); CARBON DIOXIDE 26 MMOL/L (21-32); CHLORIDE 98 MMOL/L (98-107); CREATININE SERUM 0.65 MG/DL (0.60-1.30); GFR ESTIMATED > 60; GLUCOSE 129 MG/DL (70-105); POTASSIUM 3.9 MMOL/L (3.6-5.0); SODIUM 138 MMOL/L (135-145)
[2019-01-14] MEDS ORDERED: ONDANSETRON 4 MG (ZOFRAN) ORAL DISSOLVE TAB PO STA (18:50)
[2019-01-14] MEDS ORDERED: ONDA4TAB11 PO (18:55)
[2019-01-14] MEDS ORDERED: FAMO-119 PO (18:55)
[2019-01-14 19:00] VITALS: BP 120/74
[2019-01-14] MEDS ORDERED: FAMOTIDINE 20 MG (PEPCID) TABLET PO ONE (19:00)
[2019-01-14] MEDS ORDERED: ACETAMINOPHEN 500 MG TAB (TYLENOL) PO ONE (19:00)
--- NOTE | 2019-01-14 19:00 | NUR ---
This RN went into the room to discharge the patient. Patient was upset and had called her home health care nurse into the room. Patient and the home health care nurse wanted to speak with the physician. Physician is notified and this RN goes into the room with the physician to speak with the patient. Patient is visibily upset and states that she felt like her concerns were not addressed. Dr. Jean addressed all the patients concerns and states why he addressed things the way he did. Dr. Jean went over lab values and xray results. Patient started being verbally aggressive and Dr. Jean left the room. This RN tried to explain paperwork to patient but she did not want to go over the paperwork. Patient did sign the discharge form.
--- NOTE | 2019-01-14 19:02 | ED General ---
General Chief Complaint: Skin/Wound Problems Stated Complaint: AFTER PROCEDURE ISSUES Nursing Triage Note: PT REPORTS HER WOUND FROM A FLAP SURGERY NEEDS CHECKED AFTER HOME HEALTH SAW HER AND SHE NEEDS A RIDE TO . Nursing Sepsis Screen: No Definite Risk Source of Information: Patient History of Present Illness Date Seen by Provider: Jan 14, 2019 Time Seen by Provider: 17:30 Initial Comments Patient is a 33-year-old female presents with history of flap repair abdominal surgery with drains in place who presents for concern for treating seroma from abdominal wound. No fever chills sweats. No purulent drainage. No redness or any wounds. Patient is not diabetic. Patient also reports feeling anxious due to recent surgeries and hospitalizations over the past several problems. Reports chest pain and nausea. No shortness of breath. No leg pain or swelling. No other acute symptoms or complaints. Timing/Duration: 4-6 Hours Severity: Moderate Associated Systoms: Nausea/Vomiting Allergies and Home Medications Allergies Coded Allergies: Sulfa (Sulfonamide Antibiotics) (Verified Allergy, Unknown, 08/21/18) ciprofloxacin (Verified Allergy, Unknown, 08/12/18) levofloxacin (Verified Allergy, Unknown, 08/12/18) vancomycin (Verified Allergy, Unknown, 08/12/18) Uncoded Allergies: SULFA (Allergy, Unknown, 08/12/18) Home Medications Clindamycin HCl 300 Mg Capsule, 300 MG PO Q6H Prescribed by: SANDRA HICKMAN on 12/03/18 133 Famotidine 20 Mg Tablet, 20 MG PO BID Prescribed by: KELLY ALFONSO on 01/14/19 185 Hydrocodone Bit/Acetaminophen 1 Ea Tablet, 1 EACH PO Q6H Prescribed by: JAVIER HICKMAN on 12/01/18 1530 Hydrocodone/Acetaminophen 1 Each Tablet, 1 TAB PO Q6H Prescribed by: BIANKA CENTENO MD on 12/17/18 193 Ondansetron 4 Mg Tab.rapdis, 4 MG PO q6 PRN for NAUSEA/VOMITING Prescribed by: KELLY ALFONSO on 01/14/19 185 Oxycodone HCl/Acetaminophen 1 Each Tablet, 1 TAB PO Q6H PRN for PAIN-MODERATE Prescribed by: SANDRA HICKMAN on 12/03/18 133 Patient Home Medication List Home Medication List Reviewed: Yes Review of Systems Review of Systems Constitutional: see HPI EENTM: see HPI Respiratory: see HPI Cardiovascular: chest pain Gastrointestinal: no symptoms reported Musculoskeletal: no symptoms reported Past Vtpmepw-Mpieww-Vjsnee Hx Patient Social History Alcohol Use: Denies Use Recreational Drug Use: No Smoking Status: Smoker Current Status [facility] Type Used: Cigarettes 2nd Hand Smoke Exposure: Yes Recent Foreign Travel: No Contact w/Someone Who Travel: No Recent Infectious Disease Expo: No Recent Hopitalizations: No Physical Abuse: No Sexual Abuse: No Mistreated: No Fear: No Seasonal Allergies Seasonal Allergies: No Past Medical History Surgeries: Yes (hip, bi-lat knee, left hip dysplasia repair) Appendectomy, Section, Gallbladder, Orthopedic Respiratory: No Cardiac: No Neurological: No Genitourinary: No Gastrointestinal: No Musculoskeletal: No Endocrine: No HEENT: No Cancer: No Psychosocial: No Integumentary: No Blood Disorders: No Physical Exam Vital Signs Vital Signs - First Documented 01/14/19 17:57 Temp 98.8 Pulse 88 Resp 18 B/P (MAP) 120/74 (89) O2 Delivery Room Air Capillary Refill : Less Than 3 Seconds Height, Weight, BMI Height: 5'4.00" Weight: 195lbs. oz. 88.764732nh; BMI Method:Stated General Appearance: No Apparent Distress, WD/WN, Anxious Eyes: Bilateral Eye Normal Inspection HEENT: PERRL/EOMI, Normal ENT Inspection, Pharynx Normal, Moist Mucous Membranes Respiratory: Chest Non Tender, Lungs Clear Cardiovascular: Regular Rate, Rhythm, No Edema Gastrointestinal: Other (central abdominal wound, devin intact, no wound dehiscence, minimal serous drainage. No surrounding erythema or induration. Serous fluid and SHANTA drains.) Back: Normal Inspection, No CVA Tenderness Extremity: Normal Capillary Refill Neurologic/Psychiatric: Alert, Oriented x3 Skin: Normal Color Progress/Results/Core Measures Suspected Sepsis Recent Fever Within 48 Hours: No Infection Criteria Present: None New/Unexplained Altered Menta: No Sepsis Screen: No Definite Risk SIRS Temperature:98.8 Pulse: 88 Respiratory Rate: 18 Laboratory Tests 01/14/19 18:16: White Blood Count 5.8 Blood Pressure 120 /74 Mean: 89 Laboratory Tests 01/14/19 18:16: Creatinine 0.65, Platelet Count 452H Results/Orders Lab Results Laboratory Tests Test 01/14/19 18:16 Range/Units White Blood Count 5.8 4.3-11.0 10^3/uL Red Blood Count 3.83 L 4.35-5.85 10^6/uL Hemoglobin 10.1 L 11.5-16.0 G/DL Hematocrit 32 L 35-52 % Mean Corpuscular Volume 83 80-99 FL Mean Corpuscular Hemoglobin 26 25-34 PG Mean Corpuscular Hemoglobin Concent 32 32-36 G/DL Red Cell Distribution Width 14.7 H 10.0-14.5 % Platelet Count 452 H 130-400 10^3/uL Mean Platelet Volume 8.7 7.4-10.4 FL Neutrophils (%) (Auto) 48 42-75 % Lymphocytes (%) (Auto) 41 12-44 % Monocytes (%) (Auto) 6 0-12 % Eosinophils (%) (Auto) 4 0-10 % Basophils (%) (Auto) 1 0-10 % Neutrophils # (Auto) 2.8 1.8-7.8 X 10^3 Lymphocytes # (Auto) 2.3 1.0-4.0 X 10^3 Monocytes # (Auto) 0.4 0.0-1.0 X 10^3 Eosinophils # (Auto) 0.2 0.0-0.3 10^3/uL Basophils # (Auto) 0.0 0.0-0.1 10^3/uL Sodium Level 138 135-145 MMOL/L Potassium Level 3.9 3.6-5.0 MMOL/L Chloride Level 98 98-107 MMOL/L Carbon Dioxide Level 26 21-32 MMOL/L Anion Gap 14 5-14 MMOL/L Blood Urea Nitrogen 12 7-18 MG/DL Creatinine 0.65 0.60-1.30 MG/DL Estimat Glomerular Filtration Rate > 60 BUN/Creatinine Ratio 18 Glucose Level 129 H 70-105 MG/DL Calcium Level 9.1 8.5-10.1 MG/DL My Orders Orders - KELLY ALFONSO DO Cbc With Automated Diff (01/14/19 18:02) Basic Metabolic Panel (01/14/19 18:02) Chest Pa/Lat (2 View) (01/14/19 18:02) Famotidine Tablet (Pepcid Tablet) (01/14/19 19:00) Ondansetron Oral Dissolve Tab (Zofran (01/14/19 18:50) Acetaminophen Tablet (Tylenol Tablet) (01/14/19 19:00) Vital Signs/I&O 01/14/19 17:57 Temp 98.8 Pulse 88 Resp 18 B/P (MAP) 120/74 (89) O2 Delivery Room Air Capillary Refill : Less Than 3 Seconds Blood Pressure Mean: 89 Departure Communication (Admissions) Symptoms improved with treatment. Recommend following up with general surgeon and PCP for further evaluation and management of symptoms. Impression Primary Impression: Encounter for wound re-check Additional Impressions: Chest pain Nausea Disposition: HOME, SELF-CARE Condition: Improved Departure-Patient Inst. Patient Instructions: Chest Pain, Nausea and Vomiting, Adult Scripts Ondansetron (Ondansetron Odt) 4 Mg Tab.rapdis 4 MG PO q6 PRN for NAUSEA/VOMITING, #10 TAB Prov: KELLY ALFONSO DO 01/14/19 Famotidine (Pepcid) 20 Mg Tablet 20 MG PO BID, #60 TAB Prov: KELLY ALFONSO DO 01/14/19 KELLY ALFONSO DO Jan 14, 2019 19:02
== END 2019-01-14 19:00 | disposition home or self-care (01) ==
LOC: EDUNIT# 17:48 → ER FS 17:50
DX: K91.873 Postprocedural seroma of a digestive system organ or structure following other procedure (principal); R07.9 Chest pain, unspecified; R11.2 Nausea with vomiting, unspecified; F17.210 Nicotine dependence, cigarettes, uncomplicated; Z90.49 Acquired absence of other specified parts of digestive tract; Z88.2 Allergy status to sulfonamides; Z88.1 Allergy status to other antibiotic agents
CPT/HCPCS: 36415; 71046; 80048; 85025

== ENCOUNTER 2019-01-18 15:46 | Emergency (ER) | payer MEDICAID ==
[~2019-01-18] VITALS: Ht 162.6 cm; Wt 88.5 kg
[~2019-01-18 15:46] MED LIST changes: +FAMO-119 PO; +ONDA4TAB11 PO
[2019-01-18] MEDS ORDERED: NS IV 1000 ML 1,000 ML IV SCH (16:15)
[2019-01-18] MEDS ORDERED: morphine INJ 10 MG/ML 1ML (SYR OR VIAL) IVP STA ×2 (16:36→18:41)
--- NOTE | 2019-01-18 16:43 | ED Integumentary General ---
General Chief Complaint: Skin/Wound Problems Stated Complaint: HIP INCISION EXPOSED, LEAKING DISCHARGE, WEAK Nursing Triage Note: Patient reports her hip wound reopened yesterday/last night, states she began having diarrhea, chills, nausea throughout the night. Source: patient Exam Limitations: no limitations History of Present Illness Date Seen by Provider: Jan 18, 2019 Time Seen by Provider: 16:20 Initial Comments The patient is a pleasant 33-year-old female who presents for evaluation of complications of a hip and flap revision surgery area and she states that in May at she had a hip surgery and has had multiple episodes of infections and sepsis, surgeries, and drains since that time. She presents today complaining of wound dehiscence, chills, pain at the incision site, and nausea since last night. She states that she feels like she is septic. Timing/Duration: yesterday Severity: moderate Location: extremities (left upper) Allergies and Home Medications Allergies Coded Allergies: Sulfa (Sulfonamide Antibiotics) (Verified Allergy, Unknown, 08/21/18) ciprofloxacin (Verified Allergy, Unknown, 08/12/18) levofloxacin (Verified Allergy, Unknown, 08/12/18) vancomycin (Verified Allergy, Unknown, 08/12/18) Uncoded Allergies: SULFA (Allergy, Unknown, 08/12/18) Home Medications Clindamycin HCl 300 Mg Capsule, 300 MG PO Q6H Prescribed by: SANDRA HICKMAN on 12/03/181330 Famotidine 20 Mg Tablet, 20 MG PO BID Prescribed by: KELLY ALFONSO on 01/14/19 185 Hydrocodone Bit/Acetaminophen 1 Ea Tablet, 1 EACH PO Q6H Prescribed by: JAVIER HICKMAN on 12/01/18 1530 Hydrocodone/Acetaminophen 1 Each Tablet, 1 TAB PO Q6H Prescribed by: BIANKA CENTENO MD on 12/17/18 193 Ondansetron 4 Mg Tab.rapdis, 4 MG PO q6 PRN for NAUSEA/VOMITING Prescribed by: KELLY ALFONSO on 01/14/19 185 Oxycodone HCl/Acetaminophen 1 Each Tablet, 1 TAB PO Q6H PRN for PAIN-MODERATE Prescribed by: SANDRA HICKMAN on 12/03/18 133 Patient Home Medication List Home Medication List Reviewed: Yes Review of Systems Review of Systems Constitutional: chills EENTM: no symptoms reported Respiratory: no symptoms reported Cardiovascular: no symptoms reported Gastrointestinal: no symptoms reported, abdominal pain, nausea Genitourinary: no symptoms reported : No Musculoskeletal: no symptoms reported Skin: no symptoms reported Psychiatric/Neurological: No Symptoms Reported Endocrine: No Symptoms Reported Hematologic/Lymphatic: No Symptoms Reported All Other Systems Reviewed Negative Unless Noted: Yes Past Vcfnttf-Iiqayp-Kvcrgm Hx Past Med/Social Hx: Reviewed Nursing Past Med/Soc Hx Patient Social History Alcohol Use: Denies Use Recreational Drug Use: No Smoking Status: Current Everyday Smoker Type Used: Cigarettes 2nd Hand Smoke Exposure: No Recent Foreign Travel: No Contact w/Someone Who Travel: No Recent Infectious Disease Expo: No Recent Hopitalizations: No Physical Abuse: No Sexual Abuse: No Mistreated: No Fear: No Seasonal Allergies Seasonal Allergies: No Past Medical History Surgeries: Yes (hip, bi-lat knee, left hip dysplasia repair) Appendectomy, Section, Gallbladder, Orthopedic Respiratory: No Cardiac: No Neurological: No Genitourinary: No Gastrointestinal: No Musculoskeletal: No Endocrine: No HEENT: No Cancer: No Psychosocial: No Integumentary: No Blood Disorders: No Physical Exam Vital Signs Vital Signs - First Documented 01/18/19 15:55 Temp 99.2 Pulse 115 Resp 20 B/P (MAP) 143/90 (107) Pulse Ox 99 O2 Delivery Room Air Capillary Refill : Less Than 3 Seconds General Appearance: WD/WN, no apparent distress HEENT: PERRL/EOMI, normal ENT inspection Cardiovascular: no edema, no JVD, tachycardia Respiratory: chest non-tender, normal breath sounds, no respiratory distress, no accessory muscle use Gastrointestinal: normal bowel sounds, other (vertical surgical incision just lateral and inferior to the umbilicus with mild wound dehiscence, no drainage noted, local tenderness is present with mild erythema surrounding the incident) Back: normal inspection, no CVA tenderness, no vertebral tenderness Extremities: non-tender, other (left lower abdomen/upper leg wound with significant dehiscence, no active bleeding, mild erythema, +ttp) 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, no motor/sensory deficits, alert, normal mood/affect, oriented x 3 Skin: normal color, warm/dry Progress/Results/Core Measures Results/Orders Lab Results Laboratory Tests Test 01/18/19 16:20 Range/Units White Blood Count 7.8 4.3-11.0 10^3/uL Red Blood Count 3.81 L 4.35-5.85 10^6/uL Hemoglobin 9.9 L 11.5-16.0 G/DL Hematocrit 32 L 35-52 % Mean Corpuscular Volume 84 80-99 FL Mean Corpuscular Hemoglobin 26 25-34 PG Mean Corpuscular Hemoglobin Concent 31 L 32-36 G/DL Red Cell Distribution Width 14.6 H 10.0-14.5 % Platelet Count 419 H 130-400 10^3/uL Mean Platelet Volume 9.3 7.4-10.4 FL Neutrophils (%) (Auto) 56 42-75 % Lymphocytes (%) (Auto) 33 12-44 % Monocytes (%) (Auto) 9 0-12 % Eosinophils (%) (Auto) 1 0-10 % Basophils (%) (Auto) 0 0-10 % Neutrophils # (Auto) 4.4 1.8-7.8 X 10^3 Lymphocytes # (Auto) 2.6 1.0-4.0 X 10^3 Monocytes # (Auto) 0.7 0.0-1.0 X 10^3 Eosinophils # (Auto) 0.1 0.0-0.3 10^3/uL Basophils # (Auto) 0.0 0.0-0.1 10^3/uL Sodium Level 140 135-145 MMOL/L Potassium Level 3.7 3.6-5.0 MMOL/L Chloride Level 102 98-107 MMOL/L Carbon Dioxide Level 22 21-32 MMOL/L Anion Gap 16 H 5-14 MMOL/L Blood Urea Nitrogen 8 7-18 MG/DL Creatinine 0.73 0.60-1.30 MG/DL Estimat Glomerular Filtration Rate > 60 BUN/Creatinine Ratio 11 Glucose Level 135 H 70-105 MG/DL Lactic Acid Level 1.54 0.50-2.00 MMOL/L Calcium Level 9.0 8.5-10.1 MG/DL Corrected Calcium 8.8 8.5-10.1 MG/DL Total Bilirubin 0.3 0.1-1.0 MG/DL Aspartate Amino Transf (AST/SGOT) 11 5-34 U/L Alanine Aminotransferase (ALT/SGPT) 5 0-55 U/L Alkaline Phosphatase 90 40-136 U/L Total Protein 7.5 6.4-8.2 GM/DL Albumin 4.3 3.2-4.5 GM/DL My Orders Orders - SUSANA ARCE DO Cbc With Automated Diff (01/18/19 16:15) Comprehensive Metabolic Panel (01/18/19 16:15) Lactic Acid Analyzer (01/18/19 16:15) Blood Culture (01/18/19 16:15) Ns Iv 1000 Ml (Sodium Chloride 0.9%) (01/18/19 16:15) Rib Trim Separator (01/18/19 16:15) Morphine Injection (Morphine Injection (01/18/19 16:36) Ondansetron Injection (Zofran Injectio (01/18/19 16:45) Wound Culture (01/18/19 17:14) Medications Given in ED Current Medications Medications Dose Ordered Sig/Amarilys Route Start Time Stop Time Status Last Admin Dose Admin Ondansetron HCl 4 mg ONCE ONCE IVP 01/18/19 16:45 01/18/19 16:46 DC 01/18/19 16:53 4 MG Vital Signs/I&O 01/18/19 15:55 Temp 99.2 Pulse 115 Resp 20 B/P (MAP) 143/90 (107) Pulse Ox 99 O2 Delivery Room Air Blood Pressure Mean: 107 Progress Progress Note : Progress Note @1715 - patient isn't on lab results. She agrees with the transfer to . She will need a surgical evaluation and wound care and needs to be evaluated by her original surgeon/team. transfer line called at this time and they stated they will call back. @1750 - Case d/w orthopedics. Dr. Davis Zayas accepts the transfer to . Awaiting bed assignment before calling EMS. Departure Impression Primary Impression: Wound dehiscence, surgical Additional Impression: Abdominal pain Disposition: XFER SHT-TRM HOSP Condition: Stable Transfer Time Spoke to Accepting Phy: 17:[address] Davis Zayas at accepts the transfer Transfer Time: 17:50 Transfer Facility: Method of Transfer: EMS Departure-Patient Inst. Referrals: BENJAMÍN GIVENS MD (PCP/Family) Primary Care Physician SUSANA ARCE DO Jan 18, 2019 16:43
[2019-01-18] MEDS ORDERED: ONDANSETRON 4 MG/2 ML (SDV) Z0FRAN IVP ONE (16:45)
[2019-01-18 16:47] LABS: HEMATOCRIT 32 % (35-52); HEMOGLOBIN 9.9 G/DL (11.5-16.0); MEAN CORPUSCULAR HEMOGLOBIN 26 PG (25-34); WHITE BLOOD COUNT 7.8 10^3/uL (4.3-11.0)
[2019-01-18 16:48] LABS: BASOPHILS % (AUTO) 0 % (0-10); EOSINOPHILS # (AUTO) 0.1 10^3/uL (0.0-0.3); EOSINOPHILS % (AUTO) 1 % (0-10); LYMPHOCYTES # (AUTO) 2.6 X 10^3 (1.0-4.0); LYMPHOCYTES % (AUTO) 33 % (12-44); MEAN CORPUSCULAR HGB CONC 31 G/DL (32-36); MEAN CORPUSCULAR VOLUME 84 FL (80-99); MEAN PLATELET VOLUME 9.3 FL (7.4-10.4); MONOCYTES # (AUTO) 0.7 X 10^3 (0.0-1.0); MONOCYTES % (AUTO) 9 % (0-12); NEUTROPHILS # (AUTO) 4.4 X 10^3 (1.8-7.8); NEUTROPHILS % (AUTO) 56 % (42-75); PLATELET COUNT 419 10^3/uL (130-400); RED CELL DISTRIBUTION WIDTH 14.6 % (10.0-14.5)
[2019-01-18 17:01] LABS: ALANINE AMINOTRANSFERASE 5 U/L (0-55); ALBUMIN 4.3 GM/DL (3.2-4.5); ALKALINE PHOSPHATASE 90 U/L (40-136); BILIRUBIN,TOTAL 0.3 MG/DL (0.1-1.0); BUN/CREATININE RATIO 11; CARBON DIOXIDE 22 MMOL/L (21-32); CHLORIDE 102 MMOL/L (98-107); CREATININE SERUM 0.73 MG/DL (0.60-1.30); GFR ESTIMATED > 60; GLUCOSE 135 MG/DL (70-105); POTASSIUM 3.7 MMOL/L (3.6-5.0); SODIUM 140 MMOL/L (135-145); TOTAL PROTEIN 7.5 GM/DL (6.4-8.2)
--- NOTE | 2019-01-18 18:03 | NUR ---
Room number received from [facility]. Informed at 1700 that [facility] will be taking an hour long break from taking transfers, another patient in the ER will be transferred before this patient. [facility] and patient updated on delay in transport.
[2019-01-18 19:33] VITALS: BP 138/85
== END 2019-01-18 19:52 | disposition short-term general hospital (02) ==
LOC: EDUNIT# 15:46 → ER FS 15:48
DX: T81.32XA Disruption of internal operation (surgical) wound, not elsewhere classified, initial encounter (principal); R10.33 Periumbilical pain; F17.210 Nicotine dependence, cigarettes, uncomplicated; Z88.2 Allergy status to sulfonamides; Z88.1 Allergy status to other antibiotic agents; Z90.49 Acquired absence of other specified parts of digestive tract
CPT/HCPCS: 36415; 80053; 83605; 85025; 87040; 87070; 87077; 87205

== ENCOUNTER 2019-02-01 15:22 | Emergency (ER) | payer MEDICAID ==
[~2019-02-01] VITALS: Ht 166 cm; Wt 90.4 kg
--- NOTE | 2019-02-01 15:31 | ED General ---
General Stated Complaint: LT SIDE HIP OPEN WOUND History of Present Illness Date Seen by Provider: Feb 01, 2019 Time Seen by Provider: 15:30 Initial Comments Patient presenting to emergency department for evaluation of dehiscence to left lower abdomen wound. She has been being seen at [facility] for a flap procedure as well as a left hip procedure. She has been seen here multiple times in transfer to multiple times for different wound complications. She says that this wound dehisced yesterday morning and she has noted blood and pus coming from the wound. She says that she talked to her surgeon Dr. ortiz and her surgeon told her to come here so that she could be transferred to . She is in no obvious distress with normal vital signs. Allergies and Home Medications Allergies Coded Allergies: Sulfa (Sulfonamide Antibiotics) (Verified Allergy, Unknown, 08/21/18) ciprofloxacin (Verified Allergy, Unknown, 08/12/18) levofloxacin (Verified Allergy, Unknown, 08/12/18) vancomycin (Verified Allergy, Unknown, 08/12/18) Uncoded Allergies: SULFA (Allergy, Unknown, 08/12/18) Home Medications Clindamycin HCl 300 Mg Capsule, 300 MG PO Q6H Prescribed by: SANDRA HICKMAN on 12/03/18 133 Famotidine 20 Mg Tablet, 20 MG PO BID Prescribed by: KELLY ALFONSO on 01/14/19 185 Hydrocodone Bit/Acetaminophen 1 Ea Tablet, 1 EACH PO Q6H Prescribed by: JAVIER HICKMAN on 12/01/18 1530 Hydrocodone/Acetaminophen 1 Each Tablet, 1 TAB PO Q6H Prescribed by: BIANKA CENTENO MD on 12/17/18 193 Ondansetron 4 Mg Tab.rapdis, 4 MG PO q6 PRN for NAUSEA/VOMITING Prescribed by: KELLY ALFONSO on 01/14/19 185 Oxycodone HCl/Acetaminophen 1 Each Tablet, 1 TAB PO Q6H PRN for PAIN-MODERATE Prescribed by: SANDRA HICKMAN on 12/03/18 133 Patient Home Medication List Home Medication List Reviewed: Yes Review of Systems Review of Systems Constitutional: no symptoms reported EENTM: no symptoms reported Respiratory: no symptoms reported Cardiovascular: no symptoms reported Gastrointestinal: abdominal pain Genitourinary: no symptoms reported Musculoskeletal: no symptoms reported Skin: lesions Psychiatric/Neurological: No Symptoms Reported Hematologic/Lymphatic: No Symptoms Reported All Other Systems Reviewed Negative Unless Noted: Yes Past Eprlshq-Fojafk-Luospw Hx Patient Social History Type Used: Cigarettes 2nd Hand Smoke Exposure: No Recent Foreign Travel: No Contact w/Someone Who Travel: No Recent Hopitalizations: No Seasonal Allergies Seasonal Allergies: No Past Medical History Surgeries: Yes (hip, bi-lat knee, left hip dysplasia repair) Appendectomy, Section, Gallbladder, Orthopedic Respiratory: No Cardiac: No Neurological: No Genitourinary: No Gastrointestinal: No Musculoskeletal: No Endocrine: No HEENT: No Cancer: No Psychosocial: No Integumentary: No Blood Disorders: No Physical Exam Vital Signs Vital Signs - First Documented 02/01/19 15:35 Temp 37.4 Pulse 102 Resp 16 B/P (MAP) 121/80 (94) Pulse Ox 99 Capillary Refill : Height, Weight, BMI Height: 5'4.00" Weight: 195lbs. oz. 88.739410os; BMI Method:Stated General Appearance: No Apparent Distress, WD/WN HEENT: PERRL/EOMI Neck: Supple Respiratory: No Respiratory Distress Cardiovascular: Regular Rate, Rhythm Gastrointestinal: Soft, Tenderness (around wound site) Back: Normal Inspection Extremity: Normal Capillary Refill Neurologic/Psychiatric: Alert, Oriented x3 Skin: Other (Appx 4-5cm wound dehisced wound with underlying abdominal fascia visualized. Some blood on dressing but no purulence.) Progress/Results/Core Measures Suspected Sepsis SIRS Temperature: Pulse: Respiratory Rate: Blood Pressure / Mean: Results/Orders My Orders Orders - SHILA GONZALES DO Morphine Injection (Morphine Injection (02/01/19 15:36) Ondansetron Injection (Zofran Injectio (02/01/19 15:45) Medications Given in ED Current Medications Medications Dose Ordered Sig/Amarilys Route Start Time Stop Time Status Last Admin Dose Admin Ondansetron HCl 4 mg ONCE ONCE IVP 02/01/19 15:45 02/01/19 15:46 DC 02/01/19 15:54 4 MG Vital Signs/I&O 02/01/19 15:35 Temp 37.4 Pulse 102 Resp 16 B/P (MAP) 121/80 (94) Pulse Ox 99 Capillary Refill : Progress Note : Progress Note Wound dehisced. I spoke to [facility] 15:50, awaiting call back. I called [facility] again at 1715 and they said they are still trying to get ahold of the surgeon. I called [facility] again at 1750, habitat management coordinator Franki said he is having trouble getting ahold of surgeon, will try cell phone next. Carlos calls back at 1805. 's plastic surgeon on-call stated the patient does not need to be transferred and recommended wet-to-dry dressings and to call her wound care follow-up for an appointment. This patient and she says she thinks she should be at and I told her that do not accept her and that she can try and figure out some sort of arrangement but I exhausted whenever I could do for her here in this emergency department. Departure Impression Primary Impression: Wound dehiscence, surgical Qualified Codes: T81.31XD - Disruption of external operation (surgical) wound, not elsewhere classified, subsequent encounter Disposition: 01 HOME, SELF-CARE Condition: Stable Departure-Patient Inst. Referrals: BENJAMÍN GIVENS MD (PCP/Family) Primary Care Physician Patient Instructions: Debridement of a Wound or Burn (DC) Add. Discharge Instructions: Call [phone]. Do wet to dry dressings. SHILA GONZALES DO Feb 01, 2019 15:31
[2019-02-01] MEDS ORDERED: morphine INJ 10 MG/ML 1ML (SYR OR VIAL) IVP STA (15:36)
[2019-02-01] MEDS ORDERED: ONDANSETRON 4 MG/2 ML (SDV) Z0FRAN IVP ONE (15:45)
--- NOTE | 2019-02-01 17:44 | NUR ---
Dr Sher is waiting on callback from . Informed patient
[2019-02-01 18:14] VITALS: BP 109/53
== END 2019-02-01 18:56 | disposition home or self-care (01) ==
LOC: EDUNIT# 15:22 → ER FS 15:24
DX: T81.31XA Disruption of external operation (surgical) wound, not elsewhere classified, initial encounter (principal); Z88.2 Allergy status to sulfonamides; Z88.1 Allergy status to other antibiotic agents; Z90.49 Acquired absence of other specified parts of digestive tract
CPT/HCPCS: 99282

== ENCOUNTER 2019-02-01 19:31 | Emergency (ER) | payer MEDICAID ==
[~2019-02-01] VITALS: Ht 167.6 cm; Wt 90.4 kg
[2019-02-01 22:50] VITALS: BP 113/67
--- NOTE | 2019-02-01 22:50 | NUR ---
Dr. Millan spoke to patient about her discharge. Patient got upset and left without signing paperwork or stopping at the welcome desk agent.
--- NOTE | 2019-02-01 22:57 | ED Integumentary General ---
General Chief Complaint: Skin/Wound Problems Stated Complaint: OPEN WOUND, LT HIP Nursing Triage Note: Patient presents to the ER stating that an on-call plastic surgeon told her that she needed to be admitted to , so she came here. Patient was seen earlier today in the ER for the same reasons and was discharged. Source: patient History of Present Illness Date Seen by Provider: Feb 01, 2019 Time Seen by Provider: 22:39 Initial Comments 33-year-old female patient checked into the emergency department again stating that she had been in contact with Dr. Rivera a resident from [facility] in the plastics department. She states that he had told her to come be seen in the emergency department not to leave until she was transferred up to . He had not spoken with anyone here in the emergency department Viv Elliott. He has not been aware apparently that she was just seen in the emergency department and benefits as well as the attending plastics department that she was to be seen as an outpatient and set coming up to the hospital to be admitted. She was in the emergency department Thursday afternoon with with her and he had dealt with the transfer center in attempts to transfer her based on her stating that she was to be transferred. She initially came in this afternoon stating that she was told to come in and be transferred. 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 They're concerned it might have MRSA again and she was to come up to according to her reports from speaking with the providers at [facility]. As she did not have transportation to get there she came to the ED to be sent there by ambulance. However when the transfer center was contacted, Dr. Guido, the plastic surgeon bone tender felt the patient could be managed with outpatient visits and wet to dry dressings. Allergies and Home Medications Allergies Coded Allergies: Sulfa (Sulfonamide Antibiotics) (Verified Allergy, Unknown, 08/21/18) ciprofloxacin (Verified Allergy, Unknown, 08/12/18) levofloxacin (Verified Allergy, Unknown, 08/12/18) vancomycin (Verified Allergy, Unknown, 08/12/18) Uncoded Allergies: SULFA (Allergy, Unknown, 08/12/18) Home Medications Clindamycin HCl 300 Mg Capsule, 300 MG PO Q6H Prescribed by: SANDRA HICKMAN on 12/03/18 1331 Famotidine 20 Mg Tablet, 20 MG PO BID Prescribed by: KELLY ALFONSO on 01/14/191854 Hydrocodone Bit/Acetaminophen 1 Ea Tablet, 1 EACH PO Q6H Prescribed by: JAVIER HICKMAN on 12/01/18 1530 Hydrocodone/Acetaminophen 1 Each Tablet, 1 TAB PO Q6H Prescribed by: BIANKA CENTENO MD on 12/17/18 193 Ondansetron 4 Mg Tab.rapdis, 4 MG PO q6 PRN for NAUSEA/VOMITING Prescribed by: KELLY ALFONSO on 01/14/191854 Oxycodone HCl/Acetaminophen 1 Each Tablet, 1 TAB PO Q6H PRN for PAIN-MODERATE Prescribed by: SANDRA HICKMAN on 12/03/18 1331 Patient Home Medication List Home Medication List Reviewed: Yes Review of Systems Review of Systems Constitutional: see HPI unable to obtain ROS as the pt left when she found out that the plastic surgery doctors did not want her transferred to . Past Vvcpjwd-Eyzode-Pldvnp Hx Patient Social History Alcohol Use: Denies Use Recreational Drug Use: No Type Used: Cigarettes 2nd Hand Smoke Exposure: No Recent Foreign Travel: No Contact w/Someone Who Travel: No Recent Infectious Disease Expo: No Recent Hopitalizations: No Physical Abuse: No Sexual Abuse: No Mistreated: No Fear: No Seasonal Allergies Seasonal Allergies: No Past Medical History Surgeries: Yes (hip, bi-lat knee, left hip dysplasia repair) Appendectomy, Section, Gallbladder, Orthopedic Respiratory: No Cardiac: No Neurological: No Genitourinary: No Gastrointestinal: No Musculoskeletal: No Endocrine: No HEENT: No Cancer: No Psychosocial: No Integumentary: No Blood Disorders: No Physical Exam Vital Signs Vital Signs - First Documented 02/01/19 19:50 Temp 37.1 Pulse 84 Resp 16 B/P (MAP) 113/67 (82) Pulse Ox 99 O2 Delivery Room Air Capillary Refill : Less Than 3 Seconds General Appearance: WD/WN, no apparent distress Comments Patient did not have a complete physical exam done on this visit as she had left after being told that the plastic surgeon at to not want her transferred and admitted tonight. Progress/Results/Core Measures Results/Orders Vital Signs/I&O 02/01/19 19:50 Temp 37.1 Pulse 84 Resp 16 B/P (MAP) 113/67 (82) Pulse Ox 99 O2 Delivery Room Air Blood Pressure Mean: 82 Progress Progress Note #1: Progress Note I had contacted after the patient was in the ER in an attempt to find out if she was related to transfer. She was just discharged from the ER with instructions from the transfer center at to follow up as an outpatient. She then shortly after being discharged check back in stating that she had spoken with someone else at and was told that she is now to be a transfer. I was not able to do this immediately upon the time that she checked in as there are several critical patients in the emergency department. When I finally was able to reach out to about the patient and give information about the resident that she had spoken with the took the information and then reached out to Dr. Murphy with plastic surgery. Progress Note #2: Progress Note Berny RN, from the transfer center called back stating that he had reached Dr. Murphy and she had even spoke with Dr. Izaguirre about the patient and they still wanted to follow the initial plan of wet to dry dressings with outpatient follow up. They had not heard from the resident bone tender of Dr. Rivera and did not know why he would have told the patient she should return to the ER and demand to be transferred. Departure Impression Primary Impression: Wound, open, hip or thigh Disposition: 01 HOME, SELF-CARE Condition: Stable Departure-Patient Inst. Decision time for Depature: 22:50 Referrals: BENJAMÍN GIVENS MD (PCP/Family) Primary Care Physician Patient Instructions: Wound Care (DC) Add. Discharge Instructions: Follow up with as planned All discharge instructions reviewed with patient and/or family. Voiced understanding. MARILUZ RODRIGUEZ MD Feb 01, 2019 22:57
== END 2019-02-01 22:50 | disposition home or self-care (01) ==
LOC: EDUNIT# 19:31 → ER FS 19:33
DX: S71.002D Unspecified open wound, left hip, subsequent encounter (principal); Z88.2 Allergy status to sulfonamides; Z88.1 Allergy status to other antibiotic agents; Z90.49 Acquired absence of other specified parts of digestive tract; X58.XXXD Exposure to other specified factors, subsequent encounter
CPT/HCPCS: 99281

== ENCOUNTER → 2019-02-03 | Outpatient (CLI) | payer MEDICAID ==
[2019-02-03 15:22] LABS: WHITE BLOOD COUNT 6.1 10^3/uL (4.3-11.0)
[2019-02-03 15:23] LABS: HEMATOCRIT 32 % (35-52); HEMOGLOBIN 9.8 G/DL (11.5-16.0); LYMPHOCYTES % (AUTO) 36 % (12-44); MEAN CORPUSCULAR HEMOGLOBIN 25 PG (25-34); MEAN CORPUSCULAR HGB CONC 31 G/DL (32-36); MEAN CORPUSCULAR VOLUME 82 FL (80-99); MEAN PLATELET VOLUME 9.2 FL (7.4-10.4); NEUTROPHILS % (AUTO) 51 % (42-75); PLATELET COUNT 395 10^3/uL (130-400); RED CELL DISTRIBUTION WIDTH 14.1 % (10.0-14.5)
[2019-02-03 15:24] LABS: BASOPHILS % (AUTO) 1 % (0-10); EOSINOPHILS # (AUTO) 0.2 10^3/uL (0.0-0.3); EOSINOPHILS % (AUTO) 4 % (0-10); LYMPHOCYTES # (AUTO) 2.2 X 10^3 (1.0-4.0); MONOCYTES # (AUTO) 0.5 X 10^3 (0.0-1.0); MONOCYTES % (AUTO) 8 % (0-12); NEUTROPHILS # (AUTO) 3.1 X 10^3 (1.8-7.8)
[2019-02-03 15:27] LABS: ERYTHROCYTE SEDIMENTATION RATE 56 MM/HR (0-20)
[2019-02-03 15:28] LABS: ALANINE AMINOTRANSFERASE 8 U/L (0-55); ALBUMIN 3.9 GM/DL (3.2-4.5); ALKALINE PHOSPHATASE 89 U/L (40-136); BILIRUBIN,TOTAL 0.2 MG/DL (0.1-1.0); BUN/CREATININE RATIO 23; CALCIUM 9.1 MG/DL (8.5-10.1); CARBON DIOXIDE 22 MMOL/L (21-32); CHLORIDE 101 MMOL/L (98-107); CREATININE SERUM 0.56 MG/DL (0.60-1.30); GFR ESTIMATED > 60; GLUCOSE 111 MG/DL (70-105); POTASSIUM 4.3 MMOL/L (3.6-5.0); SODIUM 138 MMOL/L (135-145); TOTAL PROTEIN 7.1 GM/DL (6.4-8.2)
== END ==
LOC: LAB FS 14:31
PROVIDERS: ATTEND Internal Medicine
DX: Q65.89 Other specified congenital deformities of hip (principal)
CPT/HCPCS: 36415; 80053; 85025; 85652

== ENCOUNTER 2019-04-12 15:11 | Emergency (ER) | payer MEDICAID ==
[~2019-04-12] VITALS: Ht 162.6 cm; Wt 91.7 kg
[2019-04-12] MEDS ORDERED: CLINDAMYCIN 600 MG/50 ML IVPB 50 ML IV ONE (15:30)
--- NOTE | 2019-04-12 15:37 | ED General ---
General Stated Complaint: HIP PAIN,STOMACH PAIN - SENT FROM Source of Information: Patient Exam Limitations: No Limitations History of Present Illness Date Seen by Provider: Apr 12, 2019 Time Seen by Provider: 15:15 Initial Comments The patient is a 33-year-old female well-known to this emergency department who presents for evaluation of left lateral hip redness and soreness which she first noticed earlier today. She is concerned that she has cellulitis and has had infections, sepsis in the past and wants to make sure this is not a sign of sepsis. She is not currently taking any antibiotics. She is alert and oriented 4, calm, and appears to be in no distress. She denies chest pain or shortness of breath, nausea or vomiting, back or flank pain, dizziness, or syncope. She states that in the left lower quadrant of her abdomen she feels a slight bulge that she did not notice before but states it is not tender or bothering her. Timing/Duration: 1 Day Severity: Moderate Associated Systoms: Other (left lateral hip skin redness) Allergies and Home Medications Allergies Coded Allergies: Sulfa (Sulfonamide Antibiotics) (Verified Allergy, Unknown, 08/21/18) ciprofloxacin (Verified Allergy, Unknown, 08/12/18) levofloxacin (Verified Allergy, Unknown, 08/12/18) vancomycin (Verified Allergy, Unknown, 08/12/18) Uncoded Allergies: SULFA (Allergy, Unknown, 08/12/18) Home Medications Clindamycin HCl 300 Mg Capsule, 300 MG PO Q6H Prescribed by: SANDRA HICKMAN on 12/03/18 133 Famotidine 20 Mg Tablet, 20 MG PO BID Prescribed by: KELLY ALFONSO on 01/14/19 185 Hydrocodone Bit/Acetaminophen 1 Ea Tablet, 1 EACH PO Q6H Prescribed by: JAVIER HICKMAN on 12/01/18 1530 Hydrocodone/Acetaminophen 1 Each Tablet, 1 TAB PO Q6H Prescribed by: BIANKA CENTENO MD on 12/17/18 193 Ondansetron 4 Mg Tab.rapdis, 4 MG PO q6 PRN for NAUSEA/VOMITING Prescribed by: KELLY ALFONSO on 01/14/19 185 Oxycodone HCl/Acetaminophen 1 Each Tablet, 1 TAB PO Q6H PRN for PAIN-MODERATE Prescribed by: SANDRA HICKMAN on 12/03/18 1331 Patient Home Medication List Home Medication List Reviewed: Yes Review of Systems Review of Systems Constitutional: no symptoms reported EENTM: no symptoms reported Respiratory: no symptoms reported Cardiovascular: no symptoms reported Gastrointestinal: no symptoms reported Genitourinary: no symptoms reported : No Musculoskeletal: no symptoms reported Skin: change in color (skin redness to left lateral hip) Psychiatric/Neurological: No Symptoms Reported Hematologic/Lymphatic: No Symptoms Reported Immunological/Allergic: no symptoms reported All Other Systems Reviewed Negative Unless Noted: Yes Past Peykvbx-Fwvvys-Toueac Hx Past Med/Social Hx: Reviewed Nursing Past Med/Soc Hx Patient Social History Type Used: Cigarettes 2nd Hand Smoke Exposure: No Recent Hopitalizations: No Seasonal Allergies Seasonal Allergies: No Past Medical History Surgeries: Yes (hip, bi-lat knee, left hip dysplasia repair) Appendectomy, Section, Gallbladder, Orthopedic Respiratory: No Cardiac: No Neurological: No Genitourinary: No Gastrointestinal: No Musculoskeletal: No Endocrine: No HEENT: No Cancer: No Psychosocial: No Integumentary: No Blood Disorders: No Physical Exam Vital Signs Capillary Refill : Height, Weight, BMI Height: 5'4.00" Weight: 195lbs. oz. 88.629281wy; 32.00 BMI Method:Stated General Appearance: No Apparent Distress, WD/WN Eyes: Bilateral Eye Normal Inspection, Bilateral Eye PERRL, Bilateral Eye EOMI HEENT: PERRL/EOMI, Pharynx Normal Neck: Full Range of Motion, Normal Inspection, Non Tender, Supple Respiratory: Chest Non Tender, Normal Breath Sounds, No Accessory Muscle Use, No Respiratory Distress Cardiovascular: Regular Rate, Rhythm, No Edema, No JVD Gastrointestinal: Normal Bowel Sounds, Non Tender, Soft, Other (soft possible hernia in LLQ, reducible, non-tender) Back: Normal Inspection, No CVA Tenderness, No Vertebral Tenderness Extremity: Normal Capillary Refill, Non Tender, No Calf Tenderness Neurologic/Psychiatric: Alert, Oriented x3, No Motor/Sensory Deficits, Normal Mood/Affect Skin: Warm/Dry, Other (left lateral hip redness consistent with cellulitis) Focused Exam Lactate Level 04/12/19 16:15: Lactic Acid Level 0.78 Lactic Acid Level Laboratory Tests Test 04/12/19 16:15 Lactic Acid Level 0.78 MMOL/L (0.50-2.00) Progress/Results/Core Measures Suspected Sepsis SIRS Temperature: Pulse: Respiratory Rate: Laboratory Tests 04/12/19 16:15: White Blood Count 5.6 Blood Pressure / Mean: 04/12/19 16:15: Lactic Acid Level 0.78 Laboratory Tests 04/12/19 16:15: Creatinine 0.53L, Platelet Count 335, Total Bilirubin 0.3 Results/Orders Lab Results Laboratory Tests Test 04/12/19 16:15 Range/Units White Blood Count 5.6 4.3-11.0 10^3/uL Red Blood Count 4.26 L 4.35-5.85 10^6/uL Hemoglobin 9.5 L 11.5-16.0 G/DL Hematocrit 31 L 35-52 % Mean Corpuscular Volume 73 L 80-99 FL Mean Corpuscular Hemoglobin 22 L 25-34 PG Mean Corpuscular Hemoglobin Concent 31 L 32-36 G/DL Red Cell Distribution Width 17.3 H 10.0-14.5 % Platelet Count 335 130-400 10^3/uL Mean Platelet Volume 9.1 7.4-10.4 FL Neutrophils (%) (Auto) 61 42-75 % Lymphocytes (%) (Auto) 29 12-44 % Monocytes (%) (Auto) 8 0-12 % Eosinophils (%) (Auto) 1 0-10 % Basophils (%) (Auto) 0 0-10 % Neutrophils # (Auto) 3.4 1.8-7.8 X 10^3 Lymphocytes # (Auto) 1.6 1.0-4.0 X 10^3 Monocytes # (Auto) 0.4 0.0-1.0 X 10^3 Eosinophils # (Auto) 0.1 0.0-0.3 10^3/uL Basophils # (Auto) 0.0 0.0-0.1 10^3/uL Sodium Level 136 135-145 MMOL/L Potassium Level 3.7 3.6-5.0 MMOL/L Chloride Level 104 98-107 MMOL/L Carbon Dioxide Level 21 21-32 MMOL/L Anion Gap 11 5-14 MMOL/L Blood Urea Nitrogen 8 7-18 MG/DL Creatinine 0.53 L 0.60-1.30 MG/DL Estimat Glomerular Filtration Rate > 60 BUN/Creatinine Ratio 15 Glucose Level 99 70-105 MG/DL Lactic Acid Level 0.78 0.50-2.00 MMOL/L Calcium Level 9.0 8.5-10.1 MG/DL Corrected Calcium 9.0 8.5-10.1 MG/DL Total Bilirubin 0.3 0.1-1.0 MG/DL Aspartate Amino Transf (AST/SGOT) 12 5-34 U/L Alanine Aminotransferase (ALT/SGPT) 7 0-55 U/L Alkaline Phosphatase 74 40-136 U/L Total Protein 7.2 6.4-8.2 GM/DL Albumin 4.0 3.2-4.5 GM/DL My Orders Orders - SUSANA ARCE DO Cbc With Automated Diff (04/12/19 15:28) Comprehensive Metabolic Panel (04/12/19 15:28) Blood Culture (04/12/19 15:28) Lactic Acid Analyzer (04/12/19 15:28) Ed Iv/Invasive Line Start (04/12/19 15:28) Clindamycin 600 Mg/50 Ml Ivpb (Cleocin P (04/12/19 15:30) Morphine Injection (Morphine Injection (04/12/19 16:53) Ondansetron Injection (Zofran Injectio (04/12/19 17:00) Vital Signs/I&O Capillary Refill : Progress Note : Progress Note @1605 - Patient updated on lab results which are acutely unremarkable. She states that she feels comfortable going home at this time. Advised patient to follow up with her PCP in the next 1-2 days and to return to the emergency Department immediately for new or worsening symptoms. The patient expresses verbal understanding and agreement the plan and is stable for discharge. She will go home with a prescription for clindamycin. Departure Impression Primary Impression: Cellulitis of left hip Disposition: 01 HOME, SELF-CARE Condition: Stable Departure-Patient Inst. Decision time for Depature: 16:57 Referrals: BENJAMÍN GIVENS MD (PCP/Family) Primary Care Physician Patient Instructions: Cellulitis (Skin Infection), Adult (DC) Add. Discharge Instructions: Take the prescribed medicine as directed. Return to the ER for new or worsening symptoms. Follow-up with your doctor in the next 1-2 days. Scripts Clindamycin HCl (Clindamycin HCl) 300 Mg Capsule 300 MG PO Q6H for 10 Days, #40 CAP Prov: SUSANA ARCE DO 04/12/19 SUSANA ARCE DO Apr 12, 2019 15:37 POS
[2019-04-12 16:27] LABS: HEMATOCRIT 31 % (35-52); HEMOGLOBIN 9.5 G/DL (11.5-16.0); MEAN CORPUSCULAR HEMOGLOBIN 22 PG (25-34); MEAN CORPUSCULAR HGB CONC 31 G/DL (32-36); MEAN CORPUSCULAR VOLUME 73 FL (80-99); PLATELET COUNT 335 10^3/uL (130-400); RED CELL DISTRIBUTION WIDTH 17.3 % (10.0-14.5); WHITE BLOOD COUNT 5.6 10^3/uL (4.3-11.0)
[2019-04-12 16:28] LABS: BASOPHILS % (AUTO) 0 % (0-10); EOSINOPHILS # (AUTO) 0.1 10^3/uL (0.0-0.3); EOSINOPHILS % (AUTO) 1 % (0-10); LYMPHOCYTES # (AUTO) 1.6 X 10^3 (1.0-4.0); LYMPHOCYTES % (AUTO) 29 % (12-44); MEAN PLATELET VOLUME 9.1 FL (7.4-10.4); MONOCYTES # (AUTO) 0.4 X 10^3 (0.0-1.0); MONOCYTES % (AUTO) 8 % (0-12); NEUTROPHILS # (AUTO) 3.4 X 10^3 (1.8-7.8); NEUTROPHILS % (AUTO) 61 % (42-75)
[2019-04-12 16:47] LABS: ALANINE AMINOTRANSFERASE 7 U/L (0-55); ALKALINE PHOSPHATASE 74 U/L (40-136); BILIRUBIN,TOTAL 0.3 MG/DL (0.1-1.0); BUN/CREATININE RATIO 15; CARBON DIOXIDE 21 MMOL/L (21-32); CHLORIDE 104 MMOL/L (98-107); CREATININE SERUM 0.53 MG/DL (0.60-1.30); GFR ESTIMATED > 60; GLUCOSE 99 MG/DL (70-105); POTASSIUM 3.7 MMOL/L (3.6-5.0); SODIUM 136 MMOL/L (135-145)
[2019-04-12 16:48] LABS: TOTAL PROTEIN 7.2 GM/DL (6.4-8.2)
[2019-04-12] MEDS ORDERED: morphine INJ 10 MG/ML 1ML (SYR OR VIAL) IVP STA (16:53)
[2019-04-12] MEDS ORDERED: ONDANSETRON 4 MG/2 ML (SDV) Z0FRAN IVP ONE (17:00)
[2019-04-12] MEDS ORDERED: CLIN300C11 PO (17:01)
[2019-04-12 18:00] VITALS: BP 107/62
== END 2019-04-12 18:00 | disposition home or self-care (01) ==
LOC: EDUNIT# 15:11 → ER FS 15:13
DX: L03.116 Cellulitis of left lower limb (principal); Z88.2 Allergy status to sulfonamides; Z88.1 Allergy status to other antibiotic agents; Z90.49 Acquired absence of other specified parts of digestive tract
CPT/HCPCS: 36415; 80053; 83605; 85025; 87040; 96365; 96375

== ENCOUNTER 2019-04-24 19:55 | Emergency (ER) | payer MEDICAID ==
[~2019-04-24] VITALS: Ht 162 cm; Wt 91.9 kg
[2019-04-24 20:20] LABS: BACTERIA,URINE TRACE /HPF; BILIRUBIN,URINE NEGATIVE (NEGATIVE); CLARITY,URINE CLEAR; COLOR,URINE YELLOW; GLUCOSE, URINE (UA) NEGATIVE (NEGATIVE); HYALINE CASTS, URINE 0-2 /LPF; KETONES,URINE NEGATIVE (NEGATIVE); LEUKOCYTE ESTERASE ,URINE NEGATIVE (NEGATIVE); NITRITE,URINE NEGATIVE (NEGATIVE); PROTEIN,URINE NEGATIVE (NEGATIVE); SQUAMOUS EPITHELIAL CELL,UR 25-50 /HPF
[2019-04-24] MEDS ORDERED: METHYLNALTREXONE 12 MG/0.6 ML (RELISTOR) VIAL SQ ONE (20:26)
[2019-04-24] MEDS ORDERED: LACTATED RINGERS 1,000 ML IV ONE (20:34)
--- NOTE | 2019-04-24 20:38 | ED Abdominal Pain ---
General Chief Complaint: Abdominal/GI Problems Stated Complaint: LEFT AKBAR PAIN Nursing Triage Note: PT COMPLAINING OF LLQ SINCE . PT STATES SHE HASN'T HAD A BM SINCE THEN Sepsis Screen: No Definite Risk Source of Information: Patient Exam Limitations: No Limitations History of Present Illness Date Seen by Provider: Apr 24, 2019 Time Seen by Provider: 20:21 Initial Comments Patient resists ER by private conveyance with chief complaint of abdominal pain left lower quadrant abdomen. In December, 4 months ago she had a surgery to remove a flap of muscle from her abdominal wall down to her left lower leg secondary to abscess. Her wounds are healed but she's continued to have some pain is comfort there. 3 weeks ago she had a CT scan at [facility] and was told she had a hernia. She went to her primary care doctor last week and Dr. Givens told her it was not a hernia. For the past week she has not been able to have a bowel movement she's been having some nausea and decreased appetite and increasing pain. She was given oxycodone 30 tablets on the second, 6 days ago by her primary care doctor. She's been using them. She's not had any fevers or chills. She has tried MiraLAX twice a day and enema and suppository in the past week without benefit. She's not been able to keep anything down since yesterday. Allergies and Home Medications Allergies Coded Allergies: Sulfa (Sulfonamide Antibiotics) (Verified Allergy, Unknown, 08/21/18) ciprofloxacin (Verified Allergy, Unknown, 08/12/18) levofloxacin (Verified Allergy, Unknown, 08/12/18) vancomycin (Verified Allergy, Unknown, 08/12/18) Uncoded Allergies: SULFA (Allergy, Unknown, 08/12/18) Home Medications Clindamycin HCl 300 Mg Capsule, 300 MG PO Q6H Prescribed by: SANDRA HICKMAN on 12/03/18 1331 Clindamycin HCl 300 Mg Capsule, 300 MG PO Q6H Prescribed by: SUSANA ARCE on 04/12/19 1701 Famotidine 20 Mg Tablet, 20 MG PO BID Prescribed by: KELLY ALFONSO on 01/14/19 1855 Hydrocodone Bit/Acetaminophen 1 Ea Tablet, 1 EACH PO Q6H Prescribed by: JAVIER HICKMAN on 12/01/18 1530 Hydrocodone/Acetaminophen 1 Each Tablet, 1 TAB PO Q6H Prescribed by: BIANKA CENTENO MD on 12/17/18 193 Ondansetron 4 Mg Tab.rapdis, 4 MG PO q6 PRN for NAUSEA/VOMITING Prescribed by: KELLY ALFONSO on 01/14/19 185 Oxycodone HCl/Acetaminophen 1 Each Tablet, 1 TAB PO Q6H PRN for PAIN-MODERATE Prescribed by: SANDRA HICKMAN on 12/03/18 1331 Patient Home Medication List Home Medication List Reviewed: Yes Review of Systems Review of Systems Constitutional: No chills, No fever; malaise EENTM: No Blurred Vision, No Double Vision Respiratory: Denies Cough, Denies Shortness of Air Cardiovascular: Denies Chest Pain, Denies Edema Gastrointestinal: See HPI, Abdominal Pain, Constipated; Denies Diarrhea; Nausea, Poor Appetite, Poor Fluid Intake, Vomiting Genitourinary: Denies Burning, Denies Discharge, Denies Drainage Musculoskeletal: No back pain, No joint pain Skin: No pruritus, No rash Psychiatric/Neurological: Denies Headache, Denies Numbness, Denies Paresthesia All Other Systems Reviewed Negative Unless Noted: Yes Past Ueogoic-Xlfisc-Qllfkd Hx Patient Social History Alcohol Use: Denies Use Recreational Drug Use: No Type Used: Cigarettes 2nd Hand Smoke Exposure: No Recent Foreign Travel: No Contact w/Someone Who Travel: No Recent Infectious Disease Expo: No Recent Hopitalizations: No Physical Abuse: No Sexual Abuse: No Mistreated: No Seasonal Allergies Seasonal Allergies: No Past Medical History Surgeries: Yes (hip, bi-lat knee, left hip dysplasia repair) Appendectomy, Section, Gallbladder, Orthopedic Respiratory: No Cardiac: No Neurological: No Genitourinary: No Gastrointestinal: No Musculoskeletal: No Endocrine: No HEENT: No Cancer: No Psychosocial: No Integumentary: No Blood Disorders: No Physical Exam Vital Signs Vital Signs - First Documented 04/24/19 20:00 Temp 36.2 Pulse 85 Resp 16 B/P (MAP) 128/81 (97) Pulse Ox 100 O2 Delivery Room Air Capillary Refill : Less Than 3 Seconds Height/Weight/BMI Height: 5'4.00" Weight: 195lbs. oz. 88.405524us; 35.00 BMI Method:Stated General Appearance: WD/WN, no apparent distress HEENT: PERRL/EOMI, normal ENT inspection, pharynx normal Neck: full range of motion, normal inspection Respiratory: lungs clear, normal breath sounds, no respiratory distress, no accessory muscle use Cardiovascular: normal peripheral pulses, regular rate, rhythm Gastrointestinal: normal bowel sounds, soft, no organomegaly, tenderness (left lower quadrant with soft palpable mass consistent with either seroma or hernia approximately 4 cm diameter), other Extremities: normal range of motion, normal capillary refill Neurologic/Psychiatric: alert, normal mood/affect, oriented x 3 Skin: normal color, warm/dry, other (well-healing scars on the abdomen and left lower extremity) Progress/Results/Core Measures Results/Orders Lab Results Laboratory Tests Test 04/24/19 20:07 04/24/19 20:09 04/24/19 20:48 Range/Units Urine Opiates Screen POSITIVE H NEGATIVE Urine Oxycodone Screen POSITIVE H NEGATIVE Urine Methadone Screen NEGATIVE NEGATIVE Urine Propoxyphene Screen NEGATIVE NEGATIVE Urine Barbiturates Screen NEGATIVE NEGATIVE Ur Tricyclic Antidepressants Screen NEGATIVE NEGATIVE Urine Phencyclidine Screen NEGATIVE NEGATIVE Urine Amphetamines Screen NEGATIVE NEGATIVE Urine Methamphetamines Screen NEGATIVE NEGATIVE Urine Benzodiazepines Screen NEGATIVE NEGATIVE Urine Cocaine Screen NEGATIVE NEGATIVE Urine Cannabinoids Screen NEGATIVE NEGATIVE Urine Color YELLOW Urine Clarity CLEAR Urine pH 5.0 5-9 Urine Specific Hartman >=1.030 1.016-1.022 Urine Protein NEGATIVE NEGATIVE Urine Glucose (UA) NEGATIVE NEGATIVE Urine Ketones NEGATIVE NEGATIVE Urine Nitrite NEGATIVE NEGATIVE Urine Bilirubin NEGATIVE NEGATIVE Urine Urobilinogen 0.2 < = 1.0 MG/DL Urine Leukocyte Esterase NEGATIVE NEGATIVE Urine RBC (Auto) NEGATIVE NEGATIVE Urine RBC NONE /HPF Urine WBC 2-5 /HPF Urine Squamous Epithelial Cells 25-50 H /HPF Urine Crystals NONE /LPF Urine Bacteria TRACE /HPF Urine Casts PRESENT /LPF Urine Hyaline Casts 0-2 H /LPF Urine Mucus LARGE H /LPF Urine Culture Indicated NO White Blood Count 7.8 4.3-11.0 10^3/uL Red Blood Count 5.00 4.35-5.85 10^6/uL Hemoglobin 11.2 L 11.5-16.0 G/DL Hematocrit 37 35-52 % Mean Corpuscular Volume 74 L 80-99 FL Mean Corpuscular Hemoglobin 22 L 25-34 PG Mean Corpuscular Hemoglobin Concent 30 L 32-36 G/DL Red Cell Distribution Width 18.4 H 10.0-14.5 % Platelet Count 418 H 130-400 10^3/uL Mean Platelet Volume 8.4 7.4-10.4 FL Neutrophils (%) (Auto) 55 42-75 % Lymphocytes (%) (Auto) 35 12-44 % Monocytes (%) (Auto) 6 0-12 % Eosinophils (%) (Auto) 3 0-10 % Basophils (%) (Auto) 0 0-10 % Neutrophils # (Auto) 4.3 1.8-7.8 X 10^3 Lymphocytes # (Auto) 2.7 1.0-4.0 X 10^3 Monocytes # (Auto) 0.5 0.0-1.0 X 10^3 Eosinophils # (Auto) 0.2 0.0-0.3 10^3/uL Basophils # (Auto) 0.0 0.0-0.1 10^3/uL Sodium Level 140 135-145 MMOL/L Potassium Level 3.8 3.6-5.0 MMOL/L Chloride Level 102 98-107 MMOL/L Carbon Dioxide Level 25 21-32 MMOL/L Anion Gap 13 5-14 MMOL/L Blood Urea Nitrogen 15 7-18 MG/DL Creatinine 0.69 0.60-1.30 MG/DL Estimat Glomerular Filtration Rate > 60 BUN/Creatinine Ratio 22 Glucose Level 96 70-105 MG/DL Calcium Level 9.3 8.5-10.1 MG/DL Corrected Calcium 8.5-10.1 MG/DL Total Bilirubin 0.3 0.1-1.0 MG/DL Aspartate Amino Transf (AST/SGOT) 17 5-34 U/L Alanine Aminotransferase (ALT/SGPT) 9 0-55 U/L Alkaline Phosphatase 81 40-136 U/L Total Protein 8.3 H 6.4-8.2 GM/DL Albumin 4.9 H 3.2-4.5 GM/DL My Orders Orders - AJ MAKI Ua Culture If Indicated (04/24/19 19:58) Urine Bedside (04/24/19 19:58) Methylnaltrexone Injection (Relistor Inj (04/24/19 20:26) Cbc With Automated Diff (04/24/19 20:34) Comprehensive Metabolic Panel (04/24/19 20:34) Drug Screen Stat (Urine) (04/24/19 20:34) Ct Abdomen/Pelvis W (04/24/19 20:34) Ed Iv/Invasive Line Start (04/24/19 20:34) Lactated Ringers (Lr 1000 Ml Iv Solution (04/24/19 20:34) Fentanyl Injection (Sublimaze Injection (04/24/19 20:45) Ondansetron Injection (Zofran Injectio (04/24/19 20:45) Iohexol Injection (Omnipaque 350 Mg/Ml 1 (04/24/19 20:45) Received Contrast (Hold Metformin- Contr (04/24/19 20:45) Sodium Chloride Flush (Catheter Flush Sy (04/24/19 20:45) Ns (Ivpb) (Sodium Chloride 0.9% Ivpb Bag (04/24/19 20:45) Medications Given in ED Current Medications Medications Dose Ordered Sig/Amarilys Route Start Time Stop Time Status Last Admin Dose Admin Fentanyl Citrate 50 mcg ONCE ONCE IVP 04/24/19 20:45 04/24/19 20:46 DC 04/24/19 20:50 50 MCG Iohexol 100 ml ONCE ONCE IV 04/24/19 20:45 04/24/19 20:46 DC 04/24/19 21:28 100 ML Lactated Ringer's 1,000 ml @ 0 mls/hr Q0M ONCE IV 04/24/19 20:34 04/24/19 20:37 DC 04/24/19 20:50 999 MLS/HR Ondansetron HCl 4 mg ONCE ONCE IVP 04/24/19 20:45 04/24/19 20:46 DC 04/24/19 20:50 4 MG Sodium Chloride 10 ml NEEDED PRN IV 04/24/19 20:45 04/24/19 21:28 10 ML Sodium Chloride 100 ml ONCE ONCE IV 04/24/19 20:45 04/24/19 20:46 DC 04/24/19 21:28 80 ML Vital Signs/I&O 04/24/19 20:00 Temp 36.2 Pulse 85 Resp 16 B/P (MAP) 128/81 (97) Pulse Ox 100 O2 Delivery Room Air Blood Pressure Mean: 97 POS Progress Progress Note : Time: 21:00 Progress Note She had a CT scan that was allegedly a hernia and then not a hernia in 3 weeks ago. She has an ultrasound ordered for Thursday, 2 days from now. She says the pain is too great despite the oxycodone and she cannot wait that long. She's not had a bowel movement for a week and is had no oral intake for the past 24 hours. Rule out bowel obstruction versus hernia versus abdominal wall seroma/abscess, etc. We'll obtain labs, CT scan with IV contrast. Urinalysis unremarkable. She has her tubes tied. Fentanyl for pain and Zofran for nausea. Diagnostic Imaging Diagonstic Imaging: CT (with IV contrast) Plain Films/CT/US/NM/MRI: abdomen, pelvis Comments NAME: PREETHI COLON [facility] REC#: [id number] PT STATUS: REG ER : 1985 PHYSICIAN: AJ MAKI MD ADMIT DATE: 04/24/19/ER FS Signed POSDate of Exam:04/24/19 CT ABDOMEN/PELVIS W PROCEDURE: CT abdomen/pelvis w. TECHNIQUE: Multiple contiguous axial images were obtained through the abdomen and pelvis after administration of intravenous contrast. All CT scans use one or more of the following dose optimizing techniques: automated exposure control, MA and/or KvP adjustment based on a patient size and exam type, or iterative reconstruction. INDICATION: Left lower quadrant pain. COMPARISON: None available. FINDINGS: Lower chest: The lung bases are clear. No pericardial or pleural effusion. Peritoneum: No free intraperitoneal air or fluid. Liver and biliary system: The liver is normal. Cholecystectomy. No pathologic biliary duct dilatation. Spleen and Pancreas: Spleen is normal. The pancreas enhances normally without mass lesion or peripancreatic inflammatory changes. Adrenals: Normal. tract: The kidneys enhance normally without suspicious mass or obstruction. No ureteral calculi. Urinary bladder is distended without wall thickening. Uterus and ovaries are normal in appearance. GI tract: Stomach is partially filled with fluid and there is no wall thickening. There is a left periumbilical hernia containing a few loops of small bowel which are normal in caliber. No fluid within the hernia sac. No bowel obstruction. No pericolonic inflammatory changes. Appendectomy. Vasculature and Lymph nodes: Normal caliber aorta. No abdominal or pelvic lymphadenopathy. Musculoskeletal: Chronic erosive changes and fragmentation of the anterior left iliac wing. Soft tissue thickening superficial to the iliac vein is present. The fixation screws have been removed since prior CT of 12/03/2018. IMPRESSION: 1. Left paraumbilical hernia has a wide neck and contains a few loops of small bowel. However, there is no bowel obstruction or features of strangulation. 2. No acute inflammatory process in the abdomen and pelvis. Dictated by: Dictated on workstation # [id number] Dict: 04/24/192145 Trans: 04/24/192153 [facility] [id number] Interpreted by: CECILIA HERRERA MD Electronically signed by: CECILIA HERRERA MD 04/24/192153 Reviewed: Reviewed by Me Departure Impression Primary Impression: Hernia of abdominal wall Additional Impression: Abdominal wall pain Disposition: HOME, SELF-CARE Condition: Stable Departure-Patient Inst. Decision time for Depature: 22:10 Referrals: BENJAMÍN GIVENS MD (PCP/Family) Primary Care Physician Patient Instructions: Abdominal Hernia (DC) Add. Discharge Instructions: You definitely have an abdominal wall hernia however it does not appear to be strangulated or incarcerated. The reason you have not had a bowel movement is because hardly have any stool left in the colon. There are small intestines have the appearance of enteritis or inflammation which could be either from the laxatives or a viral infection. Stop taking the laxatives and get plenty of fluids to drink. Ondansetron one or 2 tablets every 6 hours as needed for nausea and vomiting. Keep your follow-up appointment with primary care. Use the oxycodone as prescribed. Tylenol 1000 g every 8 hours as needed for pain. Heating pads applied directly to the abdominal wall can be helpful. All discharge instructions reviewed with patient and/or family. Voiced understanding. Scripts Ondansetron (Ondansetron Odt) 4 Mg Tab.rapdis 4-8 MG PO Q6H PRN for NAUSEA/VOMITING-1ST LINE, #20 TAB 0 Refills Prov: AJ MAKI 04/24/19 AJ MAKI Apr 24, 2019 20:38 POS
[2019-04-24] MEDS ORDERED: CATHETER FLUSH 10 ML SYR IV PRN (20:45)
[2019-04-24] MEDS ORDERED: NS 100 ML (IVPB) BAG IV ONE (20:45)
[2019-04-24] MEDS ORDERED: fentaNYL INJECTION 100 MCG/2 ML AMP IVP ONE (20:45)
[2019-04-24] MEDS ORDERED: IOHEXOL 350 MG/ML 100 ML (OMNIPAQUE 350) VIAL IV ONE (20:45)
[2019-04-24] MEDS ORDERED: HOLD METFORMIN - RECEIVED CONTRAST 20 ML VIAL IV SCH (20:45)
[2019-04-24] MEDS ORDERED: ONDANSETRON 4 MG/2 ML (SDV) Z0FRAN IVP ONE (20:45)
[2019-04-24 20:55] LABS: WHITE BLOOD COUNT 7.8 10^3/uL (4.3-11.0)
[2019-04-24 20:56] LABS: BASOPHILS % (AUTO) 0 % (0-10); EOSINOPHILS # (AUTO) 0.2 10^3/uL (0.0-0.3); EOSINOPHILS % (AUTO) 3 % (0-10); HEMATOCRIT 37 % (35-52); HEMOGLOBIN 11.2 G/DL (11.5-16.0); LYMPHOCYTES # (AUTO) 2.7 X 10^3 (1.0-4.0); LYMPHOCYTES % (AUTO) 35 % (12-44); MEAN CORPUSCULAR HEMOGLOBIN 22 PG (25-34); MEAN CORPUSCULAR HGB CONC 30 G/DL (32-36); MEAN CORPUSCULAR VOLUME 74 FL (80-99); MEAN PLATELET VOLUME 8.4 FL (7.4-10.4); MONOCYTES # (AUTO) 0.5 X 10^3 (0.0-1.0); MONOCYTES % (AUTO) 6 % (0-12); NEUTROPHILS # (AUTO) 4.3 X 10^3 (1.8-7.8); NEUTROPHILS % (AUTO) 55 % (42-75); PLATELET COUNT 418 10^3/uL (130-400); RED CELL DISTRIBUTION WIDTH 18.4 % (10.0-14.5)
[2019-04-24 20:57] LABS: AMPHETAMINE SCREEN, URINE NEGATIVE (NEGATIVE); BARBITURATE SCREEN URINE NEGATIVE (NEGATIVE); BENZODIAZEPINES SCREEN URINE NEGATIVE (NEGATIVE); CANNABINOID SCREEN, URINE NEGATIVE (NEGATIVE); COCAINE SCREEN URINE NEGATIVE (NEGATIVE); METHADONE STAT NEGATIVE (NEGATIVE); METHAMPHETAMINE SCREEN URINE S NEGATIVE (NEGATIVE); OPIATE SCREEN URINE POSITIVE (NEGATIVE); OXYCODONE STAT POSITIVE (NEGATIVE); PROPOXYPHENE STAT NEGATIVE (NEGATIVE); TRICYCLIC ANTIDEPRESSANTS SCRE NEGATIVE (NEGATIVE)
[2019-04-24 21:22] LABS: ALANINE AMINOTRANSFERASE 9 U/L (0-55); ALBUMIN 4.9 GM/DL (3.2-4.5); ALKALINE PHOSPHATASE 81 U/L (40-136); BILIRUBIN,TOTAL 0.3 MG/DL (0.1-1.0); BUN/CREATININE RATIO 22; CALCIUM 9.3 MG/DL (8.5-10.1); CARBON DIOXIDE 25 MMOL/L (21-32); CHLORIDE 102 MMOL/L (98-107); CREATININE SERUM 0.69 MG/DL (0.60-1.30); GFR ESTIMATED > 60; GLUCOSE 96 MG/DL (70-105); POTASSIUM 3.8 MMOL/L (3.6-5.0); SODIUM 140 MMOL/L (135-145); TOTAL PROTEIN 8.3 GM/DL (6.4-8.2)
--- NOTE | 2019-04-24 21:53 | Diagnostic Imaging Report ---
PROCEDURE: CT abdomen/pelvis w. TECHNIQUE: Multiple contiguous axial images were obtained through the abdomen and pelvis after administration of intravenous contrast. All CT scans use one or more of the following dose optimizing techniques: automated exposure control, MA and/or KvP adjustment based on a patient size and exam type, or iterative reconstruction. INDICATION: Left lower quadrant pain. COMPARISON: None available. FINDINGS: Lower chest: The lung bases are clear. No pericardial or pleural effusion. Peritoneum: No free intraperitoneal air or fluid. Liver and biliary system: The liver is normal. Cholecystectomy. No pathologic biliary duct dilatation. Spleen and Pancreas: Spleen is normal. The pancreas enhances normally without mass lesion or peripancreatic inflammatory changes. Adrenals: Normal. tract: The kidneys enhance normally without suspicious mass or obstruction. No ureteral calculi. Urinary bladder is distended without wall thickening. Uterus and ovaries are normal in appearance. GI tract: Stomach is partially filled with fluid and there is no wall thickening. There is a left periumbilical hernia containing a few loops of small bowel which are normal in caliber. No fluid within the hernia sac. No bowel obstruction. No pericolonic inflammatory changes. Appendectomy. Vasculature and Lymph nodes: Normal caliber aorta. No abdominal or pelvic lymphadenopathy. Musculoskeletal: Chronic erosive changes and fragmentation of the anterior left iliac wing. Soft tissue thickening superficial to the iliac vein is present. The fixation screws have been removed since prior CT of 12/03/2018. IMPRESSION: 1. Left paraumbilical hernia has a wide neck and contains a few loops of small bowel. However, there is no bowel obstruction or features of strangulation. 2. No acute inflammatory process in the abdomen and pelvis. Dictated by: Dictated on workstation # [id number]
[2019-04-24] MEDS ORDERED: ONDA4TAB11 PO (22:13)
[2019-04-24] MEDS ORDERED: RX-ONDANSETRON 4 MG ODT (ZOFRAN) PPK #4 PO STA (22:22)
[2019-04-24 22:34] VITALS: BP 122/78
== END 2019-04-24 22:35 | disposition home or self-care (01) ==
LOC: EDUNIT# 19:55 → ER FS 19:57
DX: K42.9 Umbilical hernia without obstruction or gangrene (principal); Z88.2 Allergy status to sulfonamides; Z88.1 Allergy status to other antibiotic agents; Z90.49 Acquired absence of other specified parts of digestive tract
CPT/HCPCS: 36415; 74177; 80053; 80306; 81000; 84703; 85025